=== PATIENT | female | born 1970 | race Caucasian/White ===

== ENCOUNTER 2017-06-27 12:19 | Emergency (ER) | payer OTHER ==
[~2017-06-27] VITALS: Wt 51.7 kg
[~2017-06-27 12:19] MED LIST: ALPR0.254 PO; CYCL-319 PO; DIAZ-90 PO; HYDR-3498 PO
[2017-06-27] MEDS ORDERED: ONDANSETRON 4 MG INJ IV STA (14:10)
[2017-06-27] MEDS ORDERED: SOD CHLORIDE 0.9% 1,000 ML IV STA (14:10)
[2017-06-27] MEDS ORDERED: KETOROLAC 30 MG INJ IV STA (14:20)
--- NOTE | 2017-06-27 14:50 | ERD ---
ER Documentation Chief Complaint Chief Complaint BILAT LOWER EXTREMITIES PAIN, ON AND OFF FOR SEVERAL MONTHS, NO INJURY HPI Patient is a 47-year-old female with past medical history of pancreatitis, UTI, s/p cholecystectomy presents to the ED for concerns of abdominal pain, nausea, vomiting, diarrhea and bilateral leg cramps. Patient states her symptoms have been intermittent for the last 3-4 months. Patient states she recently was admitted to an outside hospital told that she had a UTI which is contributing to her pain. Patient states that her abdominal pain is in her bilateral lower quadrants in her suprapubic region. Patient denies any dysuria, frequency or urgency at this time. Patient states that her urine is dark in color. Patient also reports nausea and vomiting. She states she is taking Zofran for her symptoms. Patient also reports intermittent episodes of bloating and nonbloody diarrhea. Patient says she has had a decreased appetite for last 3 months. Patient reports taking Hickman as well as Benadryl however she states she is unable to sleep. Patient denies any fevers, chills, chest pain, shortness of breath, left upper extremity pain or loss consciousness. Patient also reports bilateral leg cramps. Patient states she was told that this because her potassium was low however she recently was told to stop taking her potassium supplement by her primary care physician. She denies any falls or trauma. Patient denies any colonoscopies in the past. ROS All systems reviewed and are negative except as per history of present illness. Medications Home Meds Active Scripts Ciprofloxacin Hcl* (Ciprofloxacin Hcl*) 500 Mg Tablet, 500 MG PO BID for 7 Days , TAB Prov:YANET MENCHACA PA-C 06/27/17 Phenazopyridine Hcl* (Pyridium*) 100 Mg Tab, 100 MG PO TID Y for URINARY PAIN, # 12 TAB Prov:YANET MENCHACA PA-C 06/27/17 Hydrocodone/Acetaminophen (Hickman 5-325 Tablet) 1 Each Tablet, 1 TAB PO Q6H Y for PAIN, #7 TAB Prov:YANET MENCHACA PA-C 06/27/17 Ibuprofen* (Motrin*) 400 Mg Tab, 400 MG PO Q6, #20 TAB Prov:YANET MENCHACA PA-C 06/27/17 Cyclobenzaprine Hcl* (Cyclobenzaprine Hcl*) 10 Mg Tablet, 10 MG PO TID Y for back pain, #60 TAB 0 Refills Prov:GERDA VALENCIA Y 04/09/14 Reported Medications Diazepam* (Valium*) 5 Mg Tablet, 10 MG PO DAILY, TAB 01/27/14 Alprazolam (Xanax) 0.25 Mg Tab, 0.25 MG PO Q8H Y for ANXIETY, TAB 01/27/14 Hydrocodone Bit-Acetaminophen (Hydrocodone Bit-APAP) 1 Each Tablet, 1 EACH PO Q6 Y for PAIN 01/27/14 Discontinued Scripts Acetaminophen* (Tylophen*) 500 Mg Capsule, 1 CAP PO Q6H Y for PAIN AND OR ELEVATED TEMP, #20 CAP Prov:YANET MENCHACA PA-C 06/27/17 Allergies Allergies: Coded Allergies: No Known Allergy (Unverified , 06/27/17) PMhx/Soc History of Surgery: Yes (, CHOLECYSTECTOMY, back surgery) Anesthesia Reaction: No Hx 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 Disorder: No Hx Respiratory Disorders: No Hx Cardiac Disorders: No Hx Psychiatric Problems: No Hx Miscellaneous Medical Probl: Yes (GISELE YE,) Hx Alcohol Use: Yes (SOCIAL) Hx Substance Use: No Hx Tobacco Use: Yes (10-15 CIGS/DAY) Smoking Status: Current every day smoker FmHx Family History: No diabetes Physical Exam Vitals Vital Signs Date Time Temp Pulse Resp B/P Pulse Ox O2 Delivery O2 Flow Rate FiO2 06/27/17 19:55 97.9 20 137/84 97 Room Air 06/27/17 16:40 98.3 85 20 163/70 98 Room Air 06/27/17 12:24 98.4 66 17 146/107 99 Physical Exam GENERAL: Well-developed, well-nourished female. Appears in no acute distress. Speaking in full sentences. HEAD: Normocephalic, atraumatic. EYES: Pupils are equally reactive bilaterally. EOMs grossly intact. No conjunctival erythema. ENT: Moist mucous membranes. No uvula deviation. No kissing tonsils. NECK: Supple. No meningismus. Normal range of motion of the neck. LUNG: Clear to auscultation bilaterally. No rhonchi, wheezing, rales or coarse breath sounds. HEART: Regular rate and rhythm. No murmurs, rubs or gallops. ABDOMEN: Soft and nondistended. Tender to palpation in bilateral lower quadrants and suprapubic regions. No rebound tenderness, no guarding. (-) McBurney's point tenderness. No CVA tenderness. EXTREMITIES: Equal pulses bilaterally. No peripheral clubbing, cyanosis or edema. No unilateral leg swelling. NEUROLOGIC: Alert and oriented. Moving all four extremities without any difficulty. Normal speech. Steady gait. SKIN: Normal color. Warm and dry. No rashes or lesions. Result Diagram: 06/27/17 1445 06/27/17 1445 Results 24 hrs Laboratory Tests Test 06/27/17 14:45 White Blood Count 8.610^3/ul Red Blood Count 3.9410^6/ul Hemoglobin 13.4g/dl Hematocrit 40.0% Mean Corpuscular Volume 101.5fl Mean Corpuscular Hemoglobin 34.0pg Mean Corpuscular Hemoglobin Concent 33.5g/dl Red Cell Distribution Width 13.6% Platelet Count 07914^3/UL Mean Platelet Volume 11.5fl Neutrophils % 59.9% Lymphocytes % 34.5% Monocytes % 4.7% Eosinophils % 0.3% Basophils % 0.3% Nucleated Red Blood Cells % 0.0/100WBC Neutrophils # 5.210^3/ul Lymphocytes # 3.010^3/ul Monocytes # 0.410^3/ul Eosinophils # 0.010^3/ul Basophils # 0.010^3/ul Nucleated Red Blood Cells # 0.010^3/ul Urine Color CANDIE Urine Clarity SLIGHTLY CLOUDY Urine pH 5.0 Urine Specific [place] 1.024 Urine Ketones 1+mg/dL Urine Nitrite NEGATIVEmg/dL Urine Bilirubin 1+mg/dL Urine Urobilinogen 2+mg/dL Urine Leukocyte Esterase 2+Obdulio/ul Urine Microscopic RBC 14/HPF Urine Microscopic WBC > 182/HPF Urine Squamous Epithelial Cells FEW/HPF Urine Bacteria MODERATE/HPF Urine Hyaline Casts FEW/HPF Urine Mucus MANY/HPF Urine Hemoglobin 1+mg/dL Urine Glucose NEGATIVEmg/dL Urine Total Protein 1+mg/dl Sodium Level 140mmol/L Potassium Level 4.0mmol/L Chloride Level 99mmol/L Carbon Dioxide Level 27mmol/L Anion Gap 18 Blood Urea Nitrogen 7mg/dl Creatinine 0.55mg/dl Glucose Level 78mg/dl Calcium Level 10.1mg/dl Total Bilirubin 1.0mg/dl Direct Bilirubin 0.00mg/dl Indirect Bilirubin 1.0mg/dl Aspartate Amino Transf (AST/SGOT) 61IU/L Alanine Aminotransferase (ALT/SGPT) 41IU/L Alkaline Phosphatase 153IU/L Creatine Kinase 37IU/L Creatine Kinase Index 0.8 Creatinine Kinase MB (Mass) 0.30ng/ml Troponin I < 0.012ng/ml Total Protein 8.4g/dl Albumin 4.2g/dl Globulin 4.20g/dl Albumin/Globulin Ratio 1.00 Lipase 25U/L Current Medications Medications (Trade) Dose Ordered Sig/Dax Route PRN Reason Start Time Stop Time Status Last Admin Dose Admin Sodium Chloride (NS) 1,000 ml @ 1,000 mls/hr Q1H STAT IV 06/27/17 14:10 06/27/17 15:09 DC 06/27/17 14:52 Ondansetron HCl (Zofran Inj) 4 mg ONCE STAT IV 06/27/17 14:10 06/27/17 14:12 DC 06/27/17 14:53 Ketorolac Tromethamine (Toradol) 30 mg ONCE STAT IV 06/27/17 14:20 06/27/17 14:21 DC 06/27/17 14:53 Morphine Sulfate 4 mg 4 mg ONCE STAT IV 06/27/17 16:33 06/27/17 16:34 DC 06/27/17 16:43 Ceftriaxone Sodium (Rocephin) 50 ml @ 100 mls/hr ONCE ONCE IVPB 06/27/17 17:00 06/27/17 17:29 DC 06/27/17 17:13 Procedures/MDM ED COURSE: The patient was stable throughout ED course. I kept the patient and/or family informed of laboratory and diagnostic imaging results throughout the ED course. DIAGNOSTIC IMAGING: Read by radiologist. Patient: OMER CHAVEZ : 1970 Age: 47 Sex: F MR #: [id number] DOS: 06/27/17 1410 Ordering MD: YANET MENCHACA PA-C Location: [facility] Room/Bed: PROCEDURE: CT Abdomen and Pelvis without contrast. CLINICAL INDICATION: Abdominal pain TECHNIQUE: CT scan of the abdomen and pelvis was performed on a multidetector high-resolution CT scanner without intravenous contrast. Coronal and sagittal reformatted images were obtained from the axial source images. Images were reviewed on a high-resolution PACS workstation. The total exam CTDI equals 5mGy and the total exam DLP equals 276mGy-cm. One or more of the following dose reduction techniques were used: Automated exposure control, Adjustment of the mA and/or kV according to patient size, and/or use of iterative reconstruction technique. DICOM images are available. COMPARISON: Abdominal CT 05/04/2015 FINDINGS: Evaluation of the solid organs is limited given the lack of intravenous contrast administration. The lung bases are clear. Hypoattenuation of the liver. Status post cholecystectomy. Calcifications are not seen in the region of the pancreatic head at the location of the prior pancreatic head cystic lesion. Adrenals and spleen are unremarkable. No hydronephrosis. No renal or ureteral stone. No bowel obstruction. Normal-caliber appendix. Colonic diverticulosis. No significant retroperitoneal lymphadenopathy, ascites or evidence of pneumoperitoneum. IMPRESSION: No acute intra-abdominal process identified. No evidence of bowel obstruction or appendicitis. Colonic diverticulosis without evidence of acute diverticulitis. Hepatic steatosis. Status post cholecystectomy. Calcifications are now seen in the region of the pancreatic head at the location of the prior pancreatic head cystic lesion. Recommend correlation with prior surgical/procedural history. RPTAT: AA .Simeon Roas MD, MD Date Time Electronically viewed and signed by .Simeon Rosa MD, on 06/27/2017 16:32 .T/ CC: YANET MENCHACA PA-C PROCEDURES: None. MEDICATIONS GIVEN: IV fluids, Zofran, Toradol, Morphine Patient tolerated medication well with no adverse reactions. Patient reported improvement in pain. MEDICAL DECISION MAKING: This is a 47-year-old female with a history of a cholecystectomy, pancreatitis, UTI who presents to the ED for multiple concerns including lower abdominal pain , nausea, vomiting, diarrhea, leg cramps. Patient states her symptoms have been intermittent for the last 3 months. Patient was recently admitted for similar symptoms at [facility]. Patient states she was told that she had a UTI and was discharged after numerous studies were done.. Vital signs were reviewed. Patient is afebrile. CBC showed no evidence of systemic infection or severe anemia. CMP showed no evidence of electrolyte abnormalities , severe acidosis, alkalosis, renal failure. States he was noted to be 59, alk phos of 153, anion gap of 18. CK was negative. Troponin was negative. Lipase showed no evidence of acute pancreatitis. test was negative. UA showed 2+ leukocyte esterase, greater than 182 WBCs. Patient was given Rocephin 1 g here in the ED. Urine was sent for culture given hx of recurrent UTIs. CT abdomen and pelvis showed No acute intra-abdominal process identified. No evidence of bowel obstruction or appendicitis. Colonic diverticulosis without evidence of acute diverticulitis. Hepatic steatosis. Status post cholecystectomy. Calcifications are now seen in the region of the pancreatic head at the location of the prior pancreatic head cystic lesion. Recommend correlation with prior surgical/procedural history. Prior to discharge, I discussed the patient's blood work and CT imaging studies with her. Patient then mentioned that her doctor, Dr. Mcdonald wished for her to be admitted. Discussed the case with my supervising physician Dr. Valdivia, who paged Dr. Mcdonald twice to discuss whether or not patient required admission. While awaiting Dr. Mcdonald calls back, patient stated that she wished to home. Patient requested not be given Keflex for UTI. I explained to the patient that I would give her Ciprofloxacin at this time, however if urine culture showed resistance, patient would be contacted. Patient understood and agreed with this plan. At this time, patient's presentation is most consistent with diverticulosis, UTI and hepatic steatosis. Low suspicion for ACS, mesenteric ischemia, DKA, bowel obstruction, bowel perforation, pancreatitis, splenic rupture, diverticulitis, pyelonephritis, nephrolithiasis, appendicitis, . PRESCRIPTIONS: Ciprofloxacin, Ibuprofen, Hickman DISCHARGE: At this time, patient is stable for discharge and outpatient management.Patient was given a copy of all blood work and imaging studies obtained today. Patient encouraged to follow up with GI specialist for colonoscopy. I have instructed the patient to follow-up with his/her primary care physician in 1-2 days. I have instructed the patient to promptly return to the ER at any time for any new or worsening symptoms including increased pain, nausea, vomiting, diarrhea, fever, weakness or LOC. The patient and/or family expressed understanding of and agreement with this plan. All questions were answered. Home care instructions were provided. Patients blood pressure was elevated (>120/80) but appears stable without evidence of hypertensive emergency, hypertensive urgency or end-organ failure. I had discussion with the patient about the risks of hypertension. I have advised the patient to follow up with his/her primary care physician for outpatient monitoring and treatment for hypertension in 2-3 days. I have instructed the patient to return to the ER for any new or worsening symptoms including chest pain, shortness of breath, headache, blurred vision, confusion, nausea, vomiting or LOC. Disclaimer: Inadvertent spelling and grammatical errors are likely due to EHR/ dictation software use and do not reflect on the overall quality of patient care. Also, please note that the electronic time recorded on this note does not necessarily reflect the actual time of the patient encounter. Departure Diagnosis: Primary Impression: Diverticulosis Diverticulosis site: unspecified location Diverticulosis bleeding: diverticulosis without bleeding Qualified Code: K57.90 - Diverticulosis of intestine without bleeding, unspecified intestinal tract location Additional Impressions: UTI (urinary tract infection) Urinary tract infection type: site unspecified Hematuria presence: with hematuria Qualified Code: N39.0 - Urinary tract infection with hematuria, site unspecified Hepatic steatosis Condition: Stable Referrals: [facility] YOU HAVE RECEIVED A MEDICAL SCREENING EXAM AND THE RESULTS INDICATE THAT YOU DO NOT HAVE A CONDITION THAT REQUIRES URGENT TREATMENT IN THE EMERGENCY DEPARTMENT. FURTHER EVALUATION AND TREATMENT OF YOUR CONDITION CAN WAIT UNTIL YOU ARE SEEN IN YOUR DOCTORS OFFICE WITHIN THE NEXT 1-2 DAYS. IT IS YOUR RESPONSIBILITY TO MAKE AN APPOINTMENT FOR FOLOW-UP CARE. IF YOU HAVE A PRIMARY DOCTOR --you should call your primary doctor and schedule an appointment IF YOU DO NOT HAVE A PRIMARY DOCTOR YOU CAN CALL OUR PHYSICIAN REFERRAL HOTLINE AT IF YOU CAN NOT AFFORD TO SEE A PHYSICIAN YOU CAN CHOSE FROM THE FOLLOWING [facility] [id number] [facility] [address] [facility] [address] [facility] [address] [facility] [address] [facility]. [facility] [address] [facility]. [facility] YOU HAVE RECEIVED A MEDICAL SCREENING EXAM AND THE RESULTS INDICATE THAT YOU DO NOT HAVE A CONDITION THAT REQUIRES URGENT TREATMENT IN THE EMERGENCY DEPARTMENT. FURTHER EVALUATION AND TREATMENT OF YOUR CONDITION CAN WAIT UNTIL YOU ARE SEEN IN YOUR DOCTORS OFFICE WITHIN THE NEXT 1-2 DAYS. IT IS YOUR RESPONSIBILITY TO MAKE AN APPOINTMENT FOR FOLOW-UP CARE. IF YOU HAVE A PRIMARY DOCTOR --you should call your primary doctor and schedule and appointment IF YOU DO NOT HAVE A PRIMARY DOCTOR YOU CAN CALL OUR PHYSICIAN REFERRAL HOTLINE AT . IF YOU CAN NOT AFFORD TO SEE A PHYSICIAN YOU CAN CHOSE FROM THE FOLLOWING [facility] INSTITUTIONS: [facility] [address] [place] [address] [facility] [address] [place] [address] [facility] [address] [place] [address] YANET MENCHACA PA-C Jun 27, 2017 14:50
[2017-06-27 15:16] LABS: BASOPHILS % 0.3 % (0.0-2.0); EOSINOPHILS % 0.3 % (0.0-7.0); HEMOGLOBIN 13.4 g/dl (12.0-16.0); LYMPHOCYTES % 34.5 % (15.0-51.0); MEAN CORPUSCULAR HGB CONC 33.5 g/dl (32.0-37.0); MEAN CORPUSCULAR VOLUME 101.5 fl (82.0-101.0); MEAN PLATELET VOLUME 11.5 fl (7.4-10.4); MONOCYTE # 0.4 10^3/ul (0.3-0.9); MONOCYTES % 4.7 % (0.0-11.0); NEUTROPHIL # 5.2 10^3/ul (1.6-7.5); NEUTROPHILS % 59.9 % (39.0-77.0); PLATELET COUNT 237 10^3/UL (140-415); RED BLOOD COUNT 3.94 10^6/ul (4.20-5.40); RED CELL DISTRIBUTION WIDTH 13.6 % (11.5-14.5); WHITE BLOOD COUNT 8.6 10^3/ul (4.8-10.8)
[2017-06-27 15:30] LABS: ADD UMIC YES; UR ASCORBIC ACID NEGATIVE (NEGATIVE); UR BACTERIA MODERATE /HPF (NONE SEEN); UR BILIRUBIN (Dip) 1+ mg/dL (NEGATIVE); UR BLOOD (Dip) 1+ mg/dL (NEGATIVE); UR CLARITY SLIGHTLY CLOUDY (CLEAR); UR COLOR AMBER (YELLOW); UR GLUCOSE (Dip) NEGATIVE (NEGATIVE); UR KETONES (Dip) 1+ mg/dL (NEGATIVE); UR LEUKOCYTE ESTERASE (Dip) 2+ Leu/ul (NEGATIVE); UR MUCUS MANY /HPF (NONE SEEN); UR NITRITE (Dip) NEGATIVE (NEGATIVE); UR RBC 14 /HPF (0-5); UR SPECIFIC GRAVITY (Dip) 1.024 (1.003-1.030); UR SQUAMOUS EPITHELIAL CELL FEW /HPF (FEW); UR TOTAL PROTEIN (Dip) 1+ mg/dl (NEGATIVE); UR UROBILINOGEN (Dip) 2+ mg/dL (NEGATIVE)
[2017-06-27] MEDS ORDERED: morphine 4 MG/ML VIAL IV STA (16:33)
--- NOTE | 2017-06-27 16:33 | RADRPT ---
PROCEDURE: CT Abdomen and Pelvis without contrast. CLINICAL INDICATION: Abdominal pain TECHNIQUE: CT scan of the abdomen and pelvis was performed on a multidetector high-resolution CT s canner without intravenous contrast. Coronal and sagittal reformatted images were obtained from the axial source images. Images were reviewed on a high-resolution PACS workstation. The total exam CTD I equals 5mGy and the total exam DLP equals 276mGy-cm. One or more of the following dose reduction t echniques were used: Automated exposure control, Adjustment of the mA and/or kV according to patient size, and/or use of iterative reconstruction technique. DICOM images are available. COMPARISON: Abdominal CT 05/04/2015 FINDINGS: Evaluation of the solid organs is limited given the lack of intravenous contrast administration. The lung bases are clear. Hypoattenuation of the liver. Status post cholecystectomy. Calcifications are not seen in the region of the pancreatic head at the location of the prior pancreatic head cystic lesion. Adrenals and spl een are unremarkable. No hydronephrosis. No renal or ureteral stone. No bowel obstruction. Normal-caliber appendix. Colonic diverticulosis. No significant retroperitoneal lymphadenopathy, ascites or evidence of pneumoperitoneum. IMPRESSION: No acute intra-abdominal process identified. No evidence of bowel obstruction or appendicitis. Colonic diverticulosis without evidence of acute diverticulitis. Hepatic steatosis. Status post cholecystectomy. Calcifications are now seen in the region of the pancreatic head at the location of the prior pancre atic head cystic lesion. Recommend correlation with prior surgical/procedural history. RPTAT: AA .Onel Rosa MD, MD Date Time Electronically viewed and signed by .Onel Rosa MD, MD on 06/27/2017 16:32 .T/
[2017-06-27 16:40] VITALS: PULSE 85
[2017-06-27 16:49] LABS: ALBUMIN 4.2 g/dl (3.3-4.9); CALCIUM 10.1 mg/dl (8.4-10.2); CREATININE 0.55 mg/dl (0.44-1.00); TOTAL PROTEIN 8.4 g/dl (6.1-8.1)
[2017-06-27] MEDS ORDERED: CEFTRIAXONE 1 GM/50 ML (PMX) 50 ML IVPB ONE (17:00)
[2017-06-27 18:34] LABS: CREATINE KINASE 37 IU/L (23-200)
[2017-06-27 18:50] LABS: TROPONIN-I < 0.012 ng/ml (0.00-0.12)
[2017-06-27] MEDS ORDERED: IBUP400T22 PO (19:40)
[2017-06-27] MEDS ORDERED: ACET500C5 PO (19:40)
[2017-06-27] MEDS ORDERED: HYDR-906 PO (19:41)
[2017-06-27] MEDS ORDERED: CIPR500T4 PO (19:41)
[2017-06-27] MEDS ORDERED: PHEN-537 PO (19:41)
[2017-06-27 19:55] VITALS: BP 137/84; RESP 20; TEMP 97.9
== END 2017-06-27 19:56 | disposition home or self-care (01) ==
LOC: FTE 12:19
DX: K57.90 Diverticulosis of intestine, part unspecified, without perforation or abscess without bleeding (principal); N39.0 Urinary tract infection, site not specified; K76.0 Fatty (change of) liver, not elsewhere classified; F17.210 Nicotine dependence, cigarettes, uncomplicated; R40.2252 Coma scale, best verbal response, oriented, at arrival to emergency department; R40.2142 Coma scale, eyes open, spontaneous, at arrival to emergency department; R40.2362 Coma scale, best motor response, obeys commands, at arrival to emergency department
CPT/HCPCS: 36415; 74176; 80053; 81001; 82550; 82553; 83690; 84484; 85025; 87086; 96374; 96375; J0696; J1885; J2270; J2405; J7030; Z7502

== ENCOUNTER 2017-08-12 18:57 | Inpatient (IN) | END 2017-08-17 16:48 | disposition home or self-care (01) | DRG 383 ==

== ENCOUNTER 2018-04-01 16:39 | Inpatient (IN) | END 2018-04-08 18:26 | disposition home or self-care (01) | DRG 438 ==

== ENCOUNTER 2018-04-24 08:57 | Day surgery (SDC) | END 2018-04-24 15:44 | disposition home or self-care (01) ==

== ENCOUNTER 2018-06-18 02:23 | Inpatient (IN) | END 2018-06-23 14:50 | disposition home or self-care (01) | DRG 440 ==

== ENCOUNTER 2018-06-24 21:10 | Emergency (ER) | END 2018-06-25 00:38 | disposition home or self-care (01) ==

== ENCOUNTER 2018-09-01 11:21 | Emergency (ER) | payer OTHER ==
[~2018-09-01] VITALS: Ht 170.2 cm; Wt 54.8 kg
[~2018-09-01 11:21] MED LIST changes: -ALPR0.254 PO; -CYCL-319 PO; -DIAZ-90 PO; +DIAZ10TA4 PO; -HYDR-3498 PO; +HYDR-4011 PO; +LIPA1CAP4 PO; +LIPA1CAP6 PO; +LOPE-123 PO; +LORA-441 PO; +NICO-546 TD; +ONDA4TAB13 PO; +PANT40TA3 PO
[2018-09-01 11:23] VITALS: Ht 170.2 cm; Wt 54.8 kg
[2018-09-01] MEDS ORDERED: ONDANSETRON 4 MG INJ IV STA ×2 (12:21→14:17)
[2018-09-01] MEDS ORDERED: SOD CHLORIDE 0.9% 1,000 ML IV STA ×2 (12:21→13:44)
[2018-09-01] MEDS ORDERED: HYDROmorphONE 1 MG/ML SYG IV STA ×2 (12:21→14:17)
--- NOTE | 2018-09-01 12:40 | ERD ---
ER Documentation Chief Complaint Chief Complaint c/o abdominal pain with N/V. hx: Pancreatitis HPI This a 48-year-old female who is here for pancreatitis exacerbation. The patient has had chronic pancreatitis for years she states and has had her gallbladder removed. Denies any alcohol abuse. Complains of day 2 of mid abdominal pain radiating to the back typical for her pancreas exacerbations. No fever pain is moderate. No diarrhea but has had 3 episodes of nausea and vomiting has been nonbloody. ROS All systems reviewed and are negative except as per history of present illness. Medications Home Meds Active Scripts Pantoprazole* (Protonix*) 40 Mg Tablet.dr, 40 MG PO AC BREAKFAST for 30 Days, TAB Prov:BRADLEY STROUD 06/23/18 Hydrocodone/Acetaminophen ([place] 5-325 Tablet) 1 Each Tablet, 1 EACH PO Q4 PRN for PAIN, #30 TAB Prov:BRADLEY STROUD 06/23/18 Reported Medications Chlordiazepoxide/Clidinium Br (Chlordiazepoxide-Clidinium Cap) 1 Each Capsule, 1 TAB PO DAILY PRN for DIARRHEA 09/01/18 Temazepam* (Temazepam*) 15 Mg Capsule, 15 MG PO HS MAY REPEAT X 1 PRN for INSOMNIA, CAP 09/01/18 Loperamide Hcl* (Loperamide Hcl*) 2 Mg Cap, 2 MG PO DAILY PRN for DIARRHEA, CAP 09/01/18 Xdoadu-Syqglzbd-Ygvatkl* (Agustín HENRY* 24,000) 24,000 L-76,000-120,000 Unit Capsule., 1 CAP PO WITH MEALS, CAP 09/01/18 Nicotine* (Nicotine* Patch) 21 mg/day Patch, 1 EACH TD DAILY, PATCH 06/18/18 Discontinued Reported Medications Loperamide Hcl* (Loperamide Hcl*) 2 Mg Cap, 2 MG PO, CAP 06/18/18 Diazepam* (Diazepam*) 10 Mg Tablet, 10 MG PO Q6, TAB 06/18/18 Iuqdhr-Fhoyqzka-Pegjxeq* (Agustín HENRY* 12,000) 12,000 L-38,000-60,000 Unit Capsule., 1 CAP PO WITH MEALS, CAP 04/24/18 Discontinued Scripts Lorazepam* (Ativan*) 0.5 Mg Tablet, 0.5 MG PO Q8 PRN for ANXIETY, #30 TAB Prov:BRADLEY STROUD 06/23/18 Wazsrw-Gxpspeyc-Gdgueqt* (Creyessenia HENRY* 24,000) 24,000 L-76,000-120,000 Unit Capsule.dr, 1 CAP PO WITH MEALS for 30 Days Prov:BRADLEY STROUD 06/23/18 Ondansetron Hcl* (Zofran*) 4 Mg Tab, 4 MG PO Q6H PRN for NAUSEA AND OR VOMITING, #30 TAB Prov:BRADLEY STROUD 06/23/18 Allergies Allergies: Coded Allergies: No Known Allergies (Unverified Allergy, Unknown, 09/01/18) sulfamethoxazole (Unverified Adverse Reaction, Unknown, 09/01/18) PMhx/Soc History of Surgery: Yes (; Lap-mike , pancreatic stent and removal) Anesthesia Reaction: No Hx 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 Disorder: No Hx Respiratory Disorders: No Hx Cardiac Disorders: No Hx Psychiatric Problems: Yes (Anxiety; claustrophobic) Hx Miscellaneous Medical Probl: Yes (Acute pancreatitis) Hx Alcohol Use: Yes (1 glass, white wine, 06/17/18) Hx Substance Use: Yes (elixir (THC), 1, 06/16/18) Hx Tobacco Use: Yes (currently on patch and 2 a day) Smoking Status: Current some day smoker FmHx Family History: No coronary disease Physical Exam Vitals Vital Signs Date Temp Pulse Resp B/P (MAP) Pulse Ox O2 O2 Flow FiO2 Time Delivery Rate 09/01/18 110 17 126/88 100 Room Air 13:09 (101) 09/01/18 98.3 120 20 164/69 100 11:23 (100) Physical Exam Const: Well-developed, well-nourished Head: Atraumatic, normocephalic Eyes: Normal Conjunctiva, PERRLA, EOMI, normal sclera, no nystagmus ENT: Normal External Ears, Nose and Mouth, moist mucus membranes. Neck: Full range of motion. No meningismus, no lymphadenopathy. Resp: Clear to auscultation bilaterally, no wheezing, rhonchi, rales Cardio: Regular rate and rhythm, no murmurs, S1 S2 present Abd: Soft, moderate mid abdominal tenderness, non distended. Normal bowel sounds, no guarding or rebound, no pulsitile abdominal masses or bruits Skin: No petechiae or rashes, no ecchymosis , no maculopapular rash Back: No midline or flank tenderness Ext: No cyanosis, or edema, FROM x 4, normal inspection, neurovascularly intact x 4 Neur: Awake and alert, STR 5/5 x 4, sensation intact x 4, no focal findings, cerebellum intact Psych: Normal Mood and Affect Result Diagram: 09/01/18 1300 09/01/18 1300 Results 24 hrs Laboratory Tests Test 09/01/18 13:00 White Blood Count 10.6 10^3/ul Red Blood Count 4.12 10^6/ul Hemoglobin 13.3 g/dl Hematocrit 40.4 % Mean Corpuscular Volume 98.1 fl Mean Corpuscular Hemoglobin 32.3 pg Mean Corpuscular Hemoglobin Concent 32.9 g/dl Red Cell Distribution Width 14.7 % Platelet Count 285 10^3/UL Mean Platelet Volume 11.0 fl Immature Granulocytes % 0.500 % Neutrophils % 73.1 % Lymphocytes % 19.5 % Monocytes % 6.4 % Eosinophils % 0.1 % Basophils % 0.4 % Nucleated Red Blood Cells % 0.0 /100WBC Immature Granulocytes # 0.050 10^3/ul Neutrophils # 7.8 10^3/ul Lymphocytes # 2.1 10^3/ul Monocytes # 0.7 10^3/ul Eosinophils # 0.0 10^3/ul Basophils # 0.0 10^3/ul Nucleated Red Blood Cells # 0.0 10^3/ul Sodium Level 139 mmol/L Potassium Level 3.9 mmol/L Chloride Level 103 mmol/L Carbon Dioxide Level 18 mmol/L Anion Gap 18 Blood Urea Nitrogen 7 mg/dl Creatinine 0.49 mg/dl Est Glomerular Filtrat Rate mL/min > 60 mL/min Glucose Level 89 mg/dl Calcium Level 9.2 mg/dl Total Bilirubin 0.9 mg/dl Direct Bilirubin 0.00 mg/dl Indirect Bilirubin 0.9 mg/dl Aspartate Amino Transf (AST/SGOT) 175 IU/L Alanine Aminotransferase (ALT/SGPT) 150 IU/L Alkaline Phosphatase 166 IU/L Total Protein 7.9 g/dl Albumin 4.3 g/dl Globulin 3.60 g/dl Albumin/Globulin Ratio 1.19 Lipase 238 U/L Current Medications Medications Dose Sig/Dax Start Time Status Last (Trade) Ordered Route PRN Stop Time Admin Dose Reason Admin Sodium 1,000 ml @ Q1H STAT 09/01/18 DC 09/01/18 Chloride 1,000 mls/hr IV 12:21 12:26 09/01/18 13:20 1 mg ONCE STAT 09/01/18 DC 09/01/18 Hydromorphone IV 12:21 12:27 HCl 09/01/18 12:22 (Dilaudid) Ondansetron 4 mg ONCE STAT 09/01/18 DC 09/01/18 HCl (Zofran IV 12:21 12:26 Inj) 09/01/18 12:22 Sodium 1,000 ml @ Q1H STAT 09/01/18 09/01/18 Chloride 1,000 mls/hr IV 13:44 14:07 09/01/18 14:43 1 mg ONCE STAT 09/01/18 DC Hydromorphone IV 14:17 HCl 09/01/18 14:18 (Dilaudid) Ondansetron 4 mg ONCE STAT 09/01/18 DC HCl (Zofran IV 14:17 Inj) 09/01/18 14:18 Procedures/MDM Patient is feeling better. Her labs are unremarkable she has a normal lipase does have elevated liver function tests which are likely chronic. She has no gallbladder. She had 2 L of fluid and will have 2 rounds of Dilaudid and go home. She says she is out of pain meds and will prescribe her some Dupuyer Patient feels much better at this time, and vital signs are normal, symptoms have improved. I did give strict instructions to return to the ED if symptoms continue or worsen, patient will otherwise follow-up with primary care physician. Patient understood instructions and agreed to plan. Disclaimer: Inadvertent spelling and grammatical errors are likely due to EHR/dictation software use and do not reflect on the overall quality of patient care. Also, please note that the electronic time recorded on this note does not necessarily reflect the actual time of the patient encounter. Departure Diagnosis: Primary Impression: Pancreatitis Chronicity: chronic Pancreatitis type: unspecified pancreatitis type Qualified Codes: K86.1 - Other chronic pancreatitis Condition: MARION Patricia DO Sep 01, 2018 12:40
[2018-09-01] MEDS ORDERED: LOPE-123 PO (13:12)
[2018-09-01] MEDS ORDERED: LIPA1CAP6 PO (13:12)
[2018-09-01] MEDS ORDERED: CHLO1CAP57 PO (13:14)
[2018-09-01] MEDS ORDERED: TEMA15CA PO (13:14)
[2018-09-01] MEDS ORDERED: ONDA4TAB14 PO (14:22)
[2018-09-01] MEDS ORDERED: HYDR-3980 PO (14:22)
[2018-09-01 15:19] VITALS: BP 160/90; PULSE 90; RESP 17
== END 2018-09-01 18:03 | disposition home or self-care (01) ==
LOC: E/R 11:21
DX: K86.1 Other chronic pancreatitis (principal); F17.210 Nicotine dependence, cigarettes, uncomplicated
CPT/HCPCS: 36415; 80053; 83690; 85025; 96361; 96374; 96375; 96376; J1170; J2405; J7030; Z7502; Z7610

== ENCOUNTER 2018-11-16 18:21 | Inpatient (IN) | payer OTHER ==
[~2018-11-16] VITALS: Ht 180.3 cm; Wt 61.1 kg
[~2018-11-16 18:21] MED LIST changes: +CHLO1CAP57 PO; -DIAZ10TA4 PO; +HYDR-3980 PO; -LIPA1CAP4 PO; -LORA-441 PO; -ONDA4TAB13 PO; +ONDA4TAB14 PO; +TEMA15CA PO
[2018-11-16] MEDS ORDERED: morphine 4 MG/ML VIAL IV STA (20:48)
[2018-11-16] MEDS ORDERED: SOD CHLORIDE 0.9% 1,000 ML IV STA (20:48)
[2018-11-16] MEDS ORDERED: ONDANSETRON 4 MG INJ IV STA (20:48)
[2018-11-16] MEDS ORDERED: HYDR-843 PO (22:09)
[2018-11-16] MEDS ORDERED: BEN25 PO (22:11)
[2018-11-16] MEDS ORDERED: MULTI PO (22:11)
[2018-11-16] MEDS ORDERED: ASCO500C7 PO (22:11)
--- NOTE | 2018-11-16 22:29 | ERD ---
ER Documentation Chief Complaint Chief Complaint abdominal pain with N/V x 1 week hx of Pancreatitis HPI Patient is a 48-year-old female with a history of pancreatitis who presents with abdominal pain. She has upper abdominal pain and says that it feels like previous pancreatitis. She had vomiting as well. It started 1 week ago. He has gotten worse and is sharp in nature. The patient has no fevers. The patient tried Tylenol and Zofran. The patient called Dr. Samuels who told her to go to the emergency department. Upon review of old medical records the patient has multiple visits with admissions. Review of the emergency department information exchange system shows visits to 2 separate emergency departments. ROS All systems reviewed and are negative except as per history of present illness. Medications Home Meds Active Scripts Hydrocodone/Acetaminophen ([place] 10-325 Tablet) 1 Each Tablet, 1 TAB PO Q6H PRN for PAIN, #9 TAB Prov:MARION RAWLS A. DO 09/01/18 Ondansetron (Ondansetron Odt) 4 Mg Tab.rapdis, 4 MG PO Q6H PRN for NAUSEA AND/OR VOMITING, #10 TAB Prov:ROSELIA RAWLSSTJT A. DO 09/01/18 Pantoprazole* (Protonix*) 40 Mg Tablet.dr, 40 MG PO AC BREAKFAST for 30 Days, TAB Prov:BRADLEY STROUD 06/23/18 Hydrocodone/Acetaminophen ([place] 5-325 Tablet) 1 Each Tablet, 1 EACH PO Q4 PRN for PAIN, #30 TAB Prov:BRADLEY STROUD 06/23/18 Reported Medications Diphenhydramine Hcl* (Benadryl*) 25 Mg Cap, 25 MG PO Q6H PRN for ITCHING, CAP 11/16/18 Multivitamins* (Theragran*) 1 Tab Tab, 1 TAB PO DAILY, TAB 11/16/18 Ascorbic Acid* (Vitamin C*) 500 Mg Capsule.sa, 500 MG PO DAILY, CAP 11/16/18 Hydroxyzine Hcl* (Hydroxyzine Hcl*) 25 Mg Tablet, 25 MG PO Q8H 11/16/18 Chlordiazepoxide/Clidinium Br (Chlordiazepoxide-Clidinium Cap) 1 Each Capsule, 1 TAB PO DAILY PRN for DIARRHEA 09/01/18 Temazepam* (Temazepam*) 15 Mg Capsule, 15 MG PO HS MAY REPEAT X 1 PRN for INSOMNIA, CAP 09/01/18 Loperamide Hcl* (Loperamide Hcl*) 2 Mg Cap, 2 MG PO DAILY PRN for DIARRHEA, CAP 09/01/18 Mcrdub-Tmkkyyfd-Yxsokaw* (Agustín HENRY* 24,000) 24,000 L-76,000-120,000 Unit Capsule.dr, 1 CAP PO WITH MEALS, CAP 09/01/18 Nicotine* (Nicotine* Patch) 21 mg/day Patch, 1 EACH TD DAILY, PATCH 06/18/18 Allergies Allergies: Coded Allergies: No Known Allergies (Unverified Allergy, Unknown, 09/01/18) sulfamethoxazole (Unverified Adverse Reaction, Unknown, 09/01/18) PMhx/Soc History of Surgery: Yes (; Lap-mike , pancreatic stent and removal) Anesthesia Reaction: No Hx 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 Disorder: No Hx Respiratory Disorders: No Hx Cardiac Disorders: No Hx Psychiatric Problems: Yes (Anxiety; claustrophobic) Hx Miscellaneous Medical Probl: Yes (Acute pancreatitis) Hx Alcohol Use: Yes (1 glass, white wine, 06/17/18) Hx Substance Use: Yes (elixir (THC), 1, 06/16/18) Hx Tobacco Use: Yes (currently on patch and 2 a day) Smoking Status: Former smoker FmHx Family History: No diabetes Physical Exam Vitals Vital Signs Date Temp Pulse Resp B/P (MAP) Pulse Ox O2 O2 Flow FiO2 Time Delivery Rate 11/16/18 98.1 78 18 139/100 100 Room Air 21:47 (113) 11/16/18 98.1 96 18 139/100 100 18:51 (113) Physical Exam Const: Moderate distress Head: Atraumatic Eyes: Normal Conjunctiva ENT: Normal External Ears, Nose and Mouth. Neck: Full range of motion. No meningismus. Resp: Clear to auscultation bilaterally Cardio: Regular rate and rhythm, no murmurs Abd: Soft, epigastric tenderness to palpation without rebound or guarding Skin: No petechiae or rashes Back: No midline or flank tenderness Ext: No cyanosis, or edema Neur: Awake and alert Psych: Normal Mood and Affect Result Diagram: 11/16/18211511/16/182115 Results 24 hrs Laboratory Tests Test 11/16/18 21:16 11/16/18 22:10 White Blood Count 10.1 10^3/ul Red Blood Count 4.73 10^6/ul Hemoglobin 14.6 g/dl Hematocrit 43.3 % Mean Corpuscular Volume 91.5 fl Mean Corpuscular Hemoglobin 30.9 pg Mean Corpuscular Hemoglobin Concent 33.7 g/dl Red Cell Distribution Width 13.2 % Platelet Count 383 10^3/UL Mean Platelet Volume 10.3 fl Immature Granulocytes % 0.300 % Neutrophils % % Lymphocytes % % Monocytes % % Eosinophils % % Basophils % % Nucleated Red Blood Cells % 0.0 /100WBC Immature Granulocytes # 0.030 10^3/ul Neutrophils # 10^3/ul Lymphocytes # 10^3/ul Monocytes # 10^3/ul Eosinophils # 10^3/ul Basophils # 10^3/ul Nucleated Red Blood Cells # 10^3/ul Sodium Level 141 mmol/L Potassium Level 3.8 mmol/L Chloride Level 98 mmol/L Carbon Dioxide Level 27 mmol/L Anion Gap 16 Blood Urea Nitrogen 13 mg/dl Creatinine 0.81 mg/dl Est Glomerular Filtrat Rate mL/min > 60 mL/min Glucose Level 91 mg/dl Calcium Level 11.6 mg/dl Total Bilirubin 0.6 mg/dl Direct Bilirubin 0.00 mg/dl Indirect Bilirubin 0.6 mg/dl Aspartate Amino Transf (AST/SGOT) 1422 IU/L Alanine Aminotransferase (ALT/SGPT) 691 IU/L Alkaline Phosphatase 350 IU/L Total Protein 9.6 g/dl Albumin 5.3 g/dl Globulin 4.30 g/dl Albumin/Globulin Ratio 1.23 Lipase 54 U/L POC Beta HCG, Qualitative NEGATIVE Current Medications Medications Dose Sig/Dax Start Time Status Last (Trade) Ordered Route PRN Stop Time Admin Dose Reason Admin Sodium 1,000 ml @ Q1H STAT 11/16/18 DC 11/16/18 Chloride 1,000 mls/hr IV 20:48 21:15 11/16/18 21:47 Morphine 4 mg ONCE STAT 11/16/18 DC 11/16/18 Sulfate IV 20:48 21:15 (morphine) 11/16/18 20:49 Ondansetron 4 mg ONCE STAT 11/16/18 DC 11/16/18 HCl (Zofran IV 20:48 21:15 Inj) 11/16/18 20:49 Procedures/MDM CT abdomen pelvis is pending at this time. Patient is a 48-year-old female presents with abdominal pain. Lipase was normal but the patient's AST and ALT were significantly elevated concerning for liver inflammation. The patient said that she has already had her gallbladder removed. The patient has [facility] insurance and was previously admitted to Dr. Small and so will be readmitted to Dr. Small. The patient will be admitted to a medical surgical bed. Departure Diagnosis: Primary Impression: Elevated LFTs Additional Impression: Abdominal pain Abdominal location: epigastric Qualified Codes: R10.13 - Epigastric pain Condition: CHRIS Mcdaniel MD Nov 16, 2018 22:29
[2018-11-16] MEDS ORDERED: ONDANSETRON 4 MG INJ IV PRN ×2 (22:30→23:00)
[2018-11-16] MEDS ORDERED: ACETAMINOPHEN 325 MG TAB PO PRN ×2 (22:30→23:00)
[2018-11-16] MEDS ORDERED: morphine 2 MG INJ IV PRN (23:00)
[2018-11-16] MEDS ORDERED: NACL 0.9% 3 ML SYG IV SCH (23:00)
[2018-11-17 01:30] VITALS: BP 129/84; PULSE 89; RESP 18
[2018-11-17] MEDS: SOD CHLORIDE 0.9% 1,000 ML IV SCH ×3 (01:52→14:51)
[2018-11-17 02:13] VITALS: Ht 180.3 cm; Wt 61.1 kg
[2018-11-17] MEDS: HYDROmorphONE 1 MG/ML SYG IV PRN ×5 (02:59→20:54)
[2018-11-17] MEDS: ONDANSETRON 4 MG INJ IV PRN ×2 (06:45→15:34)
[2018-11-17 08:00] VITALS: BP 145/83; PULSE 87; RESP 20
[2018-11-17] MEDS ORDERED: FAMOTIDINE 20 MG INJ IV SCH ×2 (09:00→21:00)
[2018-11-17] MEDS: ENOXAPARIN 30 MG/0.3 ML SYG SC SCH (10:02)
--- NOTE | 2018-11-17 10:37 | HP ---
Date/Time of Note Date/Time of Note DATE: 11/17/18 TIME: 10:30 Assessment/Plan VTE Prophylaxis Pharmacological prophylaxis: LMWH Lines/Catheters IV Catheter Type (from Nrsg): Saline Lock Assessment/Plan Assessment/Plan -Abdominal pain, nausea and vomiting. Keep patient n.p.o. Dilaudid as needed for pain and Zofran as needed for nausea. Dr. Samuels is asked to see patient in gastroenterology consultation. -Transaminitis -Status post ERCP, sphincterotomy and stent placement. Status post ERCP, removal of the biliary stent, removal of this large by Dr. Samuels on 06/18/2018. -History of GERD, continue Protonix. -Anxiety, continue Ativan as needed -Tobacco dependence, cessation is strongly advised, continue nicotine patch. -History of chronic pancreatitis Further recommendations based on clinical course. Plan of care discussed with Dr. Small. Result Diagram: 11/17/18 0433 11/17/18 0433 Results 24hrs Laboratory Tests Test 11/16/18 21:16 11/16/18 22:00 11/16/18 22:10 11/17/18 04:33 White Blood Count 10.1 7.7 # Red Blood Count 4.73 4.19 L Hemoglobin 14.6 13.3 Hematocrit 43.3 39.2 Mean Corpuscular 91.5 93.6 Volume Mean Corpuscular 30.9 31.7 Hemoglobin Mean Corpuscular 33.7 33.9 Hemoglobin Concen t Red Cell 13.2 13.1 Distribution Width Platelet Count 383 # 326 Mean Platelet 10.3 10.5 H Volume Immature 0.300 0.300 Granulocytes % Neutrophils % 56.5 Segmented 46 Neutrophils % (Manual) Lymphocytes % 34.0 Lymphocytes % 46 (Manual) Monocytes % 8.2 Monocytes % 7 (Manual) Eosinophils % 0.4 Eosinophils % 1 (Manual) Basophils % 0.6 Nucleated Red 0.0 0.0 Blood Cells % Immature 0.030 0.020 Granulocytes # Neutrophils # 4.4 Lymphocytes 4.6 H (Manual) Lymphocytes # 2.6 Monocytes # 0.6 Monocytes # 0.7 (Manual) Eosinophils # 0.0 Basophils # 0.1 Nucleated Red 0.0 Blood Cells # Platelet Estimate NORMAL Polychromasia 3+ Sodium Level 141 142 Potassium Level 3.8 3.3 L Chloride Level 98 101 Carbon Dioxide 27 27 Level Anion Gap 16 H 14 H Blood Urea 13 11 Nitrogen Creatinine 0.81 0.73 Est Glomerular > 60 > 60 Filtrat Rate mL/min Glucose Level 91 93 Calcium Level 11.6 H 10.0 Total Bilirubin 0.6 1.1 Direct Bilirubin 0.00 0.60 #H Indirect 0.6 0.5 Bilirubin Aspartate Amino 1422 H 1392 H Transf (AST/SGOT) Alanine 691 H 692 H Aminotransferase (ALT/SGPT) Alkaline 350 H 322 H Phosphatase Total Protein 9.6 H 7.9 # Albumin 5.3 H 4.4 Globulin 4.30 H 3.50 H Albumin/Globulin 1.23 1.25 Ratio Lipase 54 Urine Color YELLOW Urine Clarity SLIGHTLY CLOUDY A Urine pH 5.0 Urine Specific 1.020 [place]ley Urine Ketones TRACE A Urine Nitrite NEGATIVE Urine Bilirubin NEGATIVE Urine NEGATIVE Urobilinogen Urine Leukocyte 2+ H Esterase Urine Microscopic 3 RBC Urine Microscopic 51 H WBC Urine Squamous MODERATE Epithelial Cells Urine Bacteria FEW A Urine Mucus FEW A Urine Hemoglobin NEGATIVE Urine Glucose NEGATIVE Urine Total NEGATIVE Protein POC Beta HCG, NEGATIVE Qualitative Hemoglobin A1c 5.4 HPI/ROS Admit Date/Time Admit Date/Time Nov 16, 2018 at 22:26 Hx of Present Illness The patient is a 48-year-old female with history of chronic pancreatitis, history of stent placement and removal. Patient underwent ERCP with removal of biliary stent and removal of sludge by Dr. Samuels in June 2018 and was discharged home in stable condition. Patient presented to the emergency room with abdominal pain as well as nausea and vomiting started 1 week ago which got significantly worse yesterday. Patient's complaints of esophageal burning with meals and diarrhea for the last week. Patient stated that she was not taking Protonix for last 3 weeks because she ran out of prescription. Patient took Tylenol and Zofran which was not relieved her pain or nausea. Patient called her ear nose and throat specialist Dr. Samuels office and was recommended to come to the emergency department. Patient noted to have elevated liver enzyme on evaluation, underwent CT of the abdomen and pelvis which revealed chronic pancreatitis, dilated pancreatic duct, unchanged from 2018, Previous cholecystectomy. Common duct within normal limits, Punctate nonobstructing left and right upper pole renal stones. Patient denies any fever chills denies any diarrhea denies any shortness of breath, denies chest pain. Patient will be admitted for further evaluation and management. ROS 12 point review of system is negative except for what mentioned in HPI PMH/Family/Social Past Medical History Medical History: GERD, other (Chronic pancreatitis, anxiety, tobacco dependence) Medications Current Medications Sodium Chloride 1,000 ml @ 125 mls/hr Q8H IV Last administered on 11/17/18at 06:36; Admin Dose 125 MLS/HR; Start 11/16/18 at 22:51 IV Flush (NS 3 ml) 3 ml PER PROTOCOL IV ; Start 11/16/18 at 23:00 Acetaminophen (Tylenol Tab) 650 mg Q6H PRN PO .PAIN 1-3 OR TEMP; Start 11/16/18 at 23:00 Famotidine (Pepcid Iv) 20 mg Q12 IV Last administered on 11/17/18at 09:52; Admin Dose 20 MG; Start 11/17/18 at 09:00 Enoxaparin Sodium (Lovenox) 30 mg DAILY SC Last administered on 11/17/18at 10:02; Admin Dose 30 MG; Start 11/17/18 at 09:00 Ondansetron HCl (Zofran Inj) 4 mg Q4 PRN IV NAUSEA/VOMITING Last administered on 11/17/18at 06:45; Admin Dose 4 MG; Start 11/17/18 at 02:00 Hydromorphone HCl (Dilaudid) 1 mg Q4H PRN IV SEVERE PAIN LEVEL 7-10 Last administered on 11/17/18at 06:41; Admin Dose 1 MG; Start 11/17/18 at 02:00 Coded Allergies: No Known Allergies (Unverified Allergy, Unknown, 09/01/18) sulfamethoxazole (Unverified Adverse Reaction, Unknown, 09/01/18) Past Surgical History history of laparoscopic cholecystectomy, , back surgery and also biliary stent placement, subsequent removal and recent pancreatic stent placement, resection of left posterior thoracic mass with local skin flap advancement closure back in 04/2018. Pathology was noted to be epidermal inclusion cyst. Past Surgical Hx: other (Status post laparoscopic cholecystectomy, status post status post back surgery, status post biliary stent placement and subsequent removal) Family History Significant Family History: no pertinent family hx Social History Alcohol Use: occasionally Smoking Status: Former smoker Drug Use: none Exam/Review of Systems Vital Signs Vitals Vital Signs Date Temp Pulse Resp B/P (MAP) Pulse Ox O2 O2 Flow FiO2 Time Delivery Rate 11/17/18 97.5 87 20 145/83 98 08:00 (103) 11/17/18 Room Air 00:46 Intake and Output 11/16/18 11/16/18 11/17/18 1515:00 23:00 07:00 IntakeIntake Total 1000 ml BalanceBalance 1000 ml Exam Constitutional: alert, oriented Neck: supple Respiratory: diminished breath sounds Cardiovascular: nl pulses Gastrointestinal: soft, non-tender Extremities: normal pulses 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: nl mental status Skin: nl BRADLEY Prado Nov 17, 2018 10:37
--- NOTE | 2018-11-17 13:14 | CONS ---
Assessment/Plan Assessment/Plan Hospital Course (Demo Recall) 48yo female with h/o chronic pancreatitis presents with abd pain and nausea 1. Abd pain 2. Nausea 3. Transaminitis 4. Chronic pancreatitis 5. S/P ERCP, sphincterotomy with removal of stent in 6. H/O GERD -PPI for GI prophylaxis 7. Anxiety -prn ativan 8. Nicotine dependence -on Nicotine patch CT abd/pelvis without contrast 11/16: IMPRESSION: 1. Chronic pancreatitis. Dilated pancreatic duct, unchanged from 2018. 2. Previous cholecystectomy. Common duct within normal limits. 3. Punctate nonobstructing left and right upper pole renal stones. Plan: MRCP Prn zofran pain management Keep NPO for now Pt examined and POC discussed with Dr. Samuels Consultation Date/Type/Reason Admit Date/Time Nov 16, 2018 at 22:26 Date/Time of Note DATE: 11/17/18 TIME: 13:14 Hx of Present Illness 48 yo female with h/o chronic pancreatitis and biliary obstruction presents for abd pain to ER after speaking with Dr. Samuels. She also c/o nausea. Labs found her to have abnormal LFTs. TB. 0.6->1.1 with DB slightly elevate at 0.6. Alk phos 350-> 322. AST 7692-6242, ALT 691-> 692. Lipase wnl, 54. Pt states pain in RUQ began over a week ago but got bad on Monday 11/13. Nausea with no vomiting. Painful burps. No bm due to not eating. No changes otherwise to bowel habits. No dysuria. Denies fever or chills. Denies unintentional weight loss. CT of abd/pelvis is unchanged from 2018. Past Medical History Medical History: GERD, other (Chronic pancreatitis, anxiety, tobacco dependence) Home Meds Active Scripts Hydrocodone/Acetaminophen ([place] 10-325 Tablet) 1 Each Tablet, 1 TAB PO Q6H PRN for PAIN, #9 TAB Prov:MARION RAWLS DO 09/01/18 Ondansetron (Ondansetron Odt) 4 Mg Tab.rapdis, 4 MG PO Q6H PRN for NAUSEA AND/OR VOMITING, #10 TAB Prov:MARION RAWLS. DO 09/01/18 Pantoprazole* (Protonix*) 40 Mg Tablet.dr, 40 MG PO AC BREAKFAST for 30 Days, TAB Prov:BRADLEY STROUD 06/23/18 Hydrocodone/Acetaminophen ([place] 5-325 Tablet) 1 Each Tablet, 1 EACH PO Q4 PRN for PAIN, #30 TAB Prov:BRADLEY STROUD 06/23/18 Reported Medications Diphenhydramine Hcl* (Benadryl*) 25 Mg Cap, 25 MG PO Q6H PRN for ITCHING, CAP 11/16/18 Multivitamins* (Theragran*) 1 Tab Tab, 1 TAB PO DAILY, TAB 11/16/18 Ascorbic Acid* (Vitamin C*) 500 Mg Capsule.sa, 500 MG PO DAILY, CAP 11/16/18 Hydroxyzine Hcl* (Hydroxyzine Hcl*) 25 Mg Tablet, 25 MG PO Q8H 11/16/18 Chlordiazepoxide/Clidinium Br (Chlordiazepoxide-Clidinium Cap) 1 Each Capsule, 1 TAB PO DAILY PRN for DIARRHEA 09/01/18 Temazepam* (Temazepam*) 15 Mg Capsule, 15 MG PO HS MAY REPEAT X 1 PRN for INSOMNIA, CAP 09/01/18 Loperamide Hcl* (Loperamide Hcl*) 2 Mg Cap, 2 MG PO DAILY PRN for DIARRHEA, CAP 09/01/18 Ifajso-Ylykjvoz-Aqeeuuq* (Agustín HENRY* 24,000) 24,000 L-76,000-120,000 Unit Capsule.dr, 1 CAP PO WITH MEALS, CAP 09/01/18 Nicotine* (Nicotine* Patch) 21 mg/day Patch, 1 EACH TD DAILY, PATCH 06/18/18 Medications Current Medications Sodium Chloride 1,000 ml @ 125 mls/hr Q8H IV Last administered on 11/17/18at 06:36; Admin Dose 125 MLS/HR; Start 11/16/18 at 22:51 IV Flush (NS 3 ml) 3 ml PER PROTOCOL IV ; Start 11/16/18 at 23:00 Acetaminophen (Tylenol Tab) 650 mg Q6H PRN PO .PAIN 1-3 OR TEMP; Start 11/16/18 at 23:00 Enoxaparin Sodium (Lovenox) 30 mg DAILY SC Last administered on 11/17/18at 10:02; Admin Dose 30 MG; Start 11/17/18 at 09:00 Ondansetron HCl (Zofran Inj) 4 mg Q4 PRN IV NAUSEA/VOMITING Last administered on 11/17/18at 06:45; Admin Dose 4 MG; Start 11/17/18 at 02:00 Hydromorphone HCl (Dilaudid) 1 mg Q4H PRN IV SEVERE PAIN LEVEL 7-10 Last administered on 11/17/18at 10:52; Admin Dose 1 MG; Start 11/17/18 at 02:00 Pantoprazole (Protonix Iv) 40 mg DAILY@06 IV ; Start 11/17/18 at 14:00 Nicotine (Nicoderm 14 Mg/ 24hr) 1 patch DAILY TRANSDERM ; Start 11/17/18 at 14:30 Metoclopramide HCl (Reglan) 10 mg Q6H PRN IV NAUSEA AND/OR VOMITING; Start 11/17/18 at 13:00 Lorazepam (Ativan) 0.5 mg Q6H PRN PO ANXIETY; Start 11/17/18 at 13:00 Potassium Chloride 40 meq/ Dextrose/Sodium Chloride 1,000 ml @ 70 mls/hr [id number] IV ; Start 11/17/18 at 14:30 Allergies: Coded Allergies: No Known Allergies (Unverified Allergy, Unknown, 09/01/18) sulfamethoxazole (Unverified Adverse Reaction, Unknown, 09/01/18) Past Surgical History Past Surgical Hx: other (Status post laparoscopic cholecystectomy, status post status post back surgery, status post biliary stent placement and subsequent removal) Social History Alcohol Use: occasionally Smoking Status: Former smoker Drug Use: none Exam/Review of Systems Exam Vitals Vital Signs Date Temp Pulse Resp B/P (MAP) Pulse Ox O2 O2 Flow FiO2 Time Delivery Rate 11/17/18 97.5 87 20 145/83 98 08:00 (103) 11/17/18 Room Air 00:46 Intake and Output 11/16/18 11/16/18 11/17/18 1515:00 23:00 07:00 IntakeIntake Total 1000 ml BalanceBalance 1000 ml Constitutional: alert, oriented Psych: no complaints Head: normocephalic Eyes: nl sclera, PERRL Respiratory: clear to auscultation Cardiovascular: regular rate and rhythm Gastrointestinal: soft, bowel sounds, tender Musculoskeletal: nl gait and stance Extremities: normal pulses 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: nl mental status Results Result Diagram: 11/17/18 0433 11/17/18 0433 Results 24hrs Laboratory Tests Test 11/16/18 21:16 11/16/18 22:00 11/16/18 22:10 11/17/18 04:33 White Blood Count 10.1 7.7 # Red Blood Count 4.73 4.19 L Hemoglobin 14.6 13.3 Hematocrit 43.3 39.2 Mean Corpuscular 91.5 93.6 Volume Mean Corpuscular 30.9 31.7 Hemoglobin Mean Corpuscular 33.7 33.9 Hemoglobin Concen t Red Cell 13.2 13.1 Distribution Width Platelet Count 383 # 326 Mean Platelet 10.3 10.5 H Volume Immature 0.300 0.300 Granulocytes % Neutrophils % 56.5 Segmented 46 Neutrophils % (Manual) Lymphocytes % 34.0 Lymphocytes % 46 (Manual) Monocytes % 8.2 Monocytes % 7 (Manual) Eosinophils % 0.4 Eosinophils % 1 (Manual) Basophils % 0.6 Nucleated Red 0.0 0.0 Blood Cells % Immature 0.030 0.020 Granulocytes # Neutrophils # 4.4 Lymphocytes 4.6 H (Manual) Lymphocytes # 2.6 Monocytes # 0.6 Monocytes # 0.7 (Manual) Eosinophils # 0.0 Basophils # 0.1 Nucleated Red 0.0 Blood Cells # Platelet Estimate NORMAL Polychromasia 3+ Sodium Level 141 142 Potassium Level 3.8 3.3 L Chloride Level 98 101 Carbon Dioxide 27 27 Level Anion Gap 16 H 14 H Blood Urea 13 11 Nitrogen Creatinine 0.81 0.73 Est Glomerular > 60 > 60 Filtrat Rate mL/min Glucose Level 91 93 Calcium Level 11.6 H 10.0 Total Bilirubin 0.6 1.1 Direct Bilirubin 0.00 0.60 #H Indirect 0.6 0.5 Bilirubin Aspartate Amino 1422 H 1392 H Transf (AST/SGOT) Alanine 691 H 692 H Aminotransferase (ALT/SGPT) Alkaline 350 H 322 H Phosphatase Total Protein 9.6 H 7.9 # Albumin 5.3 H 4.4 Globulin 4.30 H 3.50 H Albumin/Globulin 1.23 1.25 Ratio Lipase 54 Urine Color YELLOW Urine Clarity SLIGHTLY CLOUDY A Urine pH 5.0 Urine Specific 1.020 Karval Urine Ketones TRACE A Urine Nitrite NEGATIVE Urine Bilirubin NEGATIVE Urine NEGATIVE Urobilinogen Urine Leukocyte 2+ H Esterase Urine Microscopic 3 RBC Urine Microscopic 51 H WBC Urine Squamous MODERATE Epithelial Cells Urine Bacteria FEW A Urine Mucus FEW A Urine Hemoglobin NEGATIVE Urine Glucose NEGATIVE Urine Total NEGATIVE Protein POC Beta HCG, NEGATIVE Qualitative Hemoglobin A1c 5.4 Medications Medication Current Medications Sodium Chloride 1,000 ml @ 125 mls/hr Q8H IV Last administered on 11/17/18at 06:36; Admin Dose 125 MLS/HR; Start 11/16/18 at 22:51 IV Flush (NS 3 ml) 3 ml PER PROTOCOL IV ; Start 11/16/18 at 23:00 Acetaminophen (Tylenol Tab) 650 mg Q6H PRN PO .PAIN 1-3 OR TEMP; Start 11/16/18 at 23:00 Enoxaparin Sodium (Lovenox) 30 mg DAILY SC Last administered on 11/17/18at 10:02; Admin Dose 30 MG; Start 11/17/18 at 09:00 Ondansetron HCl (Zofran Inj) 4 mg Q4 PRN IV NAUSEA/VOMITING Last administered on 11/17/18at 06:45; Admin Dose 4 MG; Start 11/17/18 at 02:00 Hydromorphone HCl (Dilaudid) 1 mg Q4H PRN IV SEVERE PAIN LEVEL 7-10 Last administered on 11/17/18at 10:52; Admin Dose 1 MG; Start 11/17/18 at 02:00 Pantoprazole (Protonix Iv) 40 mg DAILY@06 IV ; Start 11/17/18 at 14:00 Nicotine (Nicoderm 14 Mg/ 24hr) 1 patch DAILY TRANSDERM ; Start 11/17/18 at 14:30 Metoclopramide HCl (Reglan) 10 mg Q6H PRN IV NAUSEA AND/OR VOMITING; Start 11/17/18 at 13:00 Lorazepam (Ativan) 0.5 mg Q6H PRN PO ANXIETY; Start 11/17/18 at 13:00 Potassium Chloride 40 meq/ Dextrose/Sodium Chloride 1,000 ml @ 70 mls/hr [id number] IV ; Start 11/17/18 at 14:30 [place] SURESH Nov 17, 2018 13:14
[2018-11-17 14:17] VITALS: BP 154/96; PULSE 86; RESP 20
[2018-11-17] MEDS: LORAZEPAM 0.5 MG TAB PO PRN ×2 (14:28→19:56)
[2018-11-17] MEDS: POTASSIUM CHLORIDE IV SCH (14:28)
[2018-11-17] MEDS: NACL IV SCH (14:28)
[2018-11-17] MEDS: NICOTINE (14 MG/24 HR) PATCH TRANSDERM SCH (14:28)
[2018-11-17] MEDS: PANTOPRAZOLE 40 MG INJ IV SCH (14:28)
[2018-11-17] MEDS: DEXTROSE IV SCH (14:28)
[2018-11-17] MEDS: METOCLOPRAMIDE 10 MG INJ IV PRN (18:48)
[2018-11-17 22:00] VITALS: BP 134/81; PULSE 89; RESP 20
[2018-11-18] MEDS: ONDANSETRON 4 MG INJ IV PRN ×3 (00:08→21:09)
[2018-11-18] MEDS: HYDROmorphONE 1 MG/ML SYG IV PRN ×6 (00:57→21:07)
[2018-11-18 01:00] VITALS: BP 150/82; PULSE 77; RESP 18
[2018-11-18] MEDS: NACL IV SCH ×2 (04:48→08:48)
[2018-11-18] MEDS: POTASSIUM CHLORIDE IV SCH ×2 (04:48→08:48)
[2018-11-18] MEDS: DEXTROSE IV SCH ×2 (04:48→08:48)
[2018-11-18] MEDS: PANTOPRAZOLE 40 MG INJ IV SCH (05:05)
[2018-11-18 07:59] VITALS: BP 129/99; PULSE 103; RESP 20
[2018-11-18] MEDS: LORAZEPAM 0.5 MG TAB PO PRN ×2 (08:47→20:25)
[2018-11-18] MEDS: NICOTINE (14 MG/24 HR) PATCH TRANSDERM SCH (08:47)
[2018-11-18] MEDS: ENOXAPARIN 30 MG/0.3 ML SYG SC SCH (08:53)
[2018-11-18] MEDS: METOCLOPRAMIDE 10 MG INJ IV PRN ×2 (09:06→17:16)
[2018-11-18 13:45] VITALS: BP 128/69; PULSE 100; RESP 20
--- NOTE | 2018-11-18 15:51 | PN ---
Date/Time of Note Date/Time of Note DATE: 11/18/18 TIME: 15:49 Assessment/Plan VTE Prophylaxis Risk score (from Nsg)>0 risk: 2 SCD applied (from Nsg): Yes Pharmacological prophylaxis: LMWH Lines/Catheters IV Catheter Type (from Nrsg): Peripheral IV Assessment/Plan Hospital Course Patient remains hemodynamically stable, abdominal pain and nausea is adequately controlled. MRI of the abdomen noted. Assessment/Plan -Abdominal pain, nausea and vomiting. Keep patient n.p.o. Dilaudid as needed for pain and Zofran as needed for nausea. Dr. Samuels is following in gastroenterology consultation. -Transaminitis -Status post ERCP, sphincterotomy and stent placement. Status post ERCP, re moval of the biliary stent, removal of this large by Dr. Samuels on 06/18/2018. -History of GERD, continue Protonix. -Anxiety, continue Ativan as needed -Tobacco dependence, cessation is strongly advised, continue nicotine patch. -History of chronic pancreatitis Further recommendations based on clinical course. Plan of care discussed with Dr. Small. Result Diagram: 11/17/18 0433 11/18/18 0519 Results 24hrs Laboratory Tests Test 11/18/18 05:19 Sodium Level 139 Potassium Level 4.0 Chloride Level 106 Carbon Dioxide Level 22 Anion Gap 11 Blood Urea Nitrogen 4 L Creatinine 0.57 Est Glomerular Filtrat Rate mL/min > 60 Glucose Level 126 Calcium Level 9.9 Total Bilirubin 1.1 Direct Bilirubin 0.00 # Indirect Bilirubin 1.1 Aspartate Amino Transf (AST/SGOT) 558 H Alanine Aminotransferase (ALT/SGPT) 509 H Alkaline Phosphatase 410 H Total Protein 8.0 Albumin 4.4 Globulin 3.60 H Albumin/Globulin Ratio 1.22 Exam/Review of Systems Exam Vitals Vital Signs Date Temp Pulse Resp B/P (MAP) Pulse Ox O2 O2 Flow FiO2 Time Delivery Rate 11/18/18 97.6 100 20 128/69 97 13:45 (88) 11/17/18 Room Air 22:00 Intake and Output 11/17/18 11/17/18 11/18/18 1515:00 23:00 07:00 IntakeIntake Total 900 ml 180 ml BalanceBalance 900 ml 180 ml Exam Constitutional: alert, oriented Neck: supple Respiratory: diminished breath sounds Cardiovascular: nl pulses Gastrointestinal: soft, non-tender Extremities: normal pulses 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: nl mental status Skin: nl turgor Results Results 24hrs Laboratory Tests Test 11/18/18 05:19 Sodium Level 139 Potassium Level 4.0 Chloride Level 106 Carbon Dioxide Level 22 Anion Gap 11 Blood Urea Nitrogen 4 L Creatinine 0.57 Est Glomerular Filtrat Rate mL/min > 60 Glucose Level 126 Calcium Level 9.9 Total Bilirubin 1.1 Direct Bilirubin 0.00 # Indirect Bilirubin 1.1 Aspartate Amino Transf (AST/SGOT) 558 H Alanine Aminotransferase (ALT/SGPT) 509 H Alkaline Phosphatase 410 H Total Protein 8.0 Albumin 4.4 Globulin 3.60 H Albumin/Globulin Ratio 1.22 Medications Medication Current Medications IV Flush (NS 3 ml) 3 ml PER PROTOCOL IV ; Start 11/16/18 at 23:00 Acetaminophen (Tylenol Tab) 650 mg Q6H PRN PO .PAIN 1-3 OR TEMP; Start 11/16/18 at 23:00 Enoxaparin Sodium (Lovenox) 30 mg DAILY SC Last administered on 11/18/18at 08:53; Admin Dose 30 MG; Start 11/17/18 at 09:00 Ondansetron HCl (Zofran Inj) 4 mg Q4 PRN IV NAUSEA/VOMITING Last administered on 11/18/18at 13:30; Admin Dose 4 MG; Start 11/17/18 at 02:00 Hydromorphone HCl (Dilaudid) 1 mg Q4H PRN IV SEVERE PAIN LEVEL 7-10 Last administered on 11/18/18at 13:30; Admin Dose 1 MG; Start 11/17/18 at 02:00 Pantoprazole (Protonix Iv) 40 mg DAILY@06 IV Last administered on 11/18/18at 05:05; Admin Dose 40 MG; Start 11/17/18 at 14:00 Nicotine (Nicoderm 14 Mg/ 24hr) 1 patch DAILY TRANSDERM Last administered on 11/18/18at 08:47; Admin Dose 1 PATCH; Start 11/17/18 at 14:30 Metoclopramide HCl (Reglan) 10 mg Q6H PRN IV NAUSEA AND/OR VOMITING Last administered on 11/18/18at 09:06; Admin Dose 10 MG; Start 11/17/18 at 13:00 Lorazepam (Ativan) 0.5 mg Q6H PRN PO ANXIETY Last administered on 11/18/18at 08:47; Admin Dose 0.5 MG; Start 11/17/18 at 13:00 Potassium Chloride 40 meq/ Dextrose/Sodium Chloride 1,000 ml @ 70 mls/hr [id number] IV Last administered on 11/18/18at 08:48; Admin Dose 70 MLS/HR; Start 11/17/18 at 14:30 BRADLEY STROUD Nov 18, 2018 15:51
--- NOTE | 2018-11-18 17:10 | CONS ---
Assessment/Plan Assessment/Plan Assessment/Plan (Daily) 48yo female with h/o chronic pancreatitis presents with abd pain and nausea 1. Abd pain 2. Nausea 3. Transaminitis 4. Chronic pancreatitis 5. S/P ERCP, sphincterotomy with removal of stent in 6. H/O GERD -PPI for GI prophylaxis 7. Anxiety -prn ativan 8. Nicotine dependence -on Nicotine patch 9. Patient is a bile duct stone based on MRCP report Plan She definitely needs ERCP with removal of the stone. Pain management Consultation Date/Type/Reason Admit Date/Time Nov 16, 2018 at 22:26 Initial Consult Date Date/Time of Note DATE: 11/18/18 TIME: 17:09 24 HR Interval Summary Free Text/Dictation Patient complains of abdominal pain Also complains of nausea and vomiting Exam/Review of Systems Exam Vitals Vital Signs Date Temp Pulse Resp B/P (MAP) Pulse Ox O2 O2 Flow FiO2 Time Delivery Rate 11/18/18 97.6 100 20 128/69 97 13:45 (88) 11/17/18 Room Air 22:00 Intake and Output 11/17/18 11/17/18 11/18/18 1515:00 23:00 07:00 IntakeIntake Total 900 ml 180 ml BalanceBalance 900 ml 180 ml Constitutional: alert, oriented, well developed Psych: no complaints, nl mood/affect Head: normocephalic, atraumatic Eyes: nl conjunctiva, EOMI, nl lids, nl sclera, PERRL ENMT: nl external ears & nose, nl lips & teeth, nl nasal mucosa & septum Neck: supple, non-tender Respiratory: clear to auscultation, normal air movement Cardiovascular: regular rate and rhythm, nl pulses Gastrointestinal: soft, nl liver, spleen, non-tender Musculoskeletal: nl extremities to inspection, nl gait and stance Extremities: normal pulses 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: METAL MACHINE SETTER II-XII intact, nl mental status, nl speech, nl strength Skin: nl turgor; No rash or lesions Lymph: nl lymph nodes Results Result Diagram: 11/17/18 0433 11/18/18 0519 Results 24hrs Laboratory Tests Test 11/18/18 05:19 Sodium Level 139 Potassium Level 4.0 Chloride Level 106 Carbon Dioxide Level 22 Anion Gap 11 Blood Urea Nitrogen 4 L Creatinine 0.57 Est Glomerular Filtrat Rate mL/min > 60 Glucose Level 126 Calcium Level 9.9 Total Bilirubin 1.1 Direct Bilirubin 0.00 # Indirect Bilirubin 1.1 Aspartate Amino Transf (AST/SGOT) 558 H Alanine Aminotransferase (ALT/SGPT) 509 H Alkaline Phosphatase 410 H Total Protein 8.0 Albumin 4.4 Globulin 3.60 H Albumin/Globulin Ratio 1.22 Medications Medication Current Medications IV Flush (NS 3 ml) 3 ml PER PROTOCOL IV ; Start 11/16/18 at 23:00 Acetaminophen (Tylenol Tab) 650 mg Q6H PRN PO .PAIN 1-3 OR TEMP; Start 11/16/18 at 23:00 Enoxaparin Sodium (Lovenox) 30 mg DAILY SC Last administered on 11/18/18 08:53; Admin Dose 30 MG; Start 11/17/18 at 09:00 Ondansetron HCl (Zofran Inj) 4 mg Q4 PRN IV NAUSEA/VOMITING Last administered on 11/18/18 13:30; Admin Dose 4 MG; Start 11/17/18 at 02:00 Hydromorphone HCl (Dilaudid) 1 mg Q4H PRN IV SEVERE PAIN LEVEL 7-10 Last administered on 11/18/18 13:30; Admin Dose 1 MG; Start 11/17/18 at 02:00 Pantoprazole (Protonix Iv) 40 mg DAILY@06 IV Last administered on 11/18/18 05:05; Admin Dose 40 MG; Start 11/17/18 at 14:00 Nicotine (Nicoderm 14 Mg/ 24hr) 1 patch DAILY TRANSDERM Last administered on 11/18/18 08:47; Admin Dose 1 PATCH; Start 11/17/18 at 14:30 Metoclopramide HCl (Reglan) 10 mg Q6H PRN IV NAUSEA AND/OR VOMITING Last administered on 11/18/18 09:06; Admin Dose 10 MG; Start 11/17/18 at 13:00 Lorazepam (Ativan) 0.5 mg Q6H PRN PO ANXIETY Last administered on 11/18/18 08:47; Admin Dose 0.5 MG; Start 11/17/18 at 13:00 Potassium Chloride 40 meq/ Dextrose/Sodium Chloride 1,000 ml @ 70 mls/hr [id number] IV Last administered on 11/18/18 08:48; Admin Dose 70 MLS/HR; Start 11/17/18 at 14:30 DAVONTE COFFEY MD Nov 18, 2018 17:10
[2018-11-18 20:00] VITALS: BP 153/92; PULSE 75; RESP 19
[2018-11-19] VITALS (15 sets, daily range): BP systolic 121–167; BP diastolic 81–102; PULSE 70–114; RESP 17–21
[2018-11-19] MEDS: NACL IV SCH ×3 (00:36→18:50)
[2018-11-19] MEDS: POTASSIUM CHLORIDE IV SCH ×3 (00:36→18:50)
[2018-11-19] MEDS: DEXTROSE IV SCH ×3 (00:36→18:50)
[2018-11-19] MEDS: HYDROmorphONE 1 MG/ML SYG IV PRN ×6 (01:37→23:59)
[2018-11-19] MEDS: METOCLOPRAMIDE 10 MG INJ IV PRN ×2 (01:55→15:17)
[2018-11-19] MEDS: PANTOPRAZOLE 40 MG INJ IV SCH (05:41)
[2018-11-19] MEDS: NICOTINE (14 MG/24 HR) PATCH TRANSDERM SCH (08:48)
[2018-11-19] MEDS: ENOXAPARIN 30 MG/0.3 ML SYG SC SCH (08:50)
[2018-11-19] MEDS: ONDANSETRON 4 MG INJ IV PRN ×2 (09:42→22:20)
--- NOTE | 2018-11-19 11:24 | PN ---
Date/Time of Note Date/Time of Note DATE: 11/19/18 TIME: 11:21 Assessment/Plan VTE Prophylaxis Risk score (from Nsg)>0 risk: 2 SCD applied (from Ns): Yes Pharmacological prophylaxis: NA/contraindicated Pharm contraindication: surgical contra Lines/Catheters IV Catheter Type (from Nrsg): Peripheral IV Assessment/Plan Hospital Course Pt is NPO for ERCP today, abd pain and nausea are well controlled. Assessment/Plan -Abdominal pain, nausea and vomiting. Keep patient n.p.o. Dilaudid as needed for pain and Zofran as needed for nausea. Dr. Samuels is following in gastroenterology consultation. -Transaminitis -Status post ERCP, sphincterotomy and stent placement. Status post ERCP, removal of the biliary stent, removal of sludge by Dr. Samuels on 06/18/2018. -History of GERD, continue Protonix. -Anxiety, continue Ativan as needed -Tobacco dependence, cessation is strongly advised, continue nicotine patch. -History of chronic pancreatitis Further recommendations based on clinical course. Plan of care discussed with Dr. Small. Result Diagram: 11/17/18 0433 11/18/18 0519 Exam/Review of Systems Exam Vitals Vital Signs Date Temp Pulse Resp B/P (MAP) Pulse Ox O2 O2 Flow FiO2 Time Delivery Rate 11/19/18 98.3 98 17 121/83 100 07:58 (96) 11/17/18 Room Air 22:00 Intake and Output 11/18/18 11/18/18 11/19/18 1515:00 23:00 07:00 IntakeIntake Total 820 ml 580 ml 770 ml OutputOutput Total 100 ml 200 ml BalanceBalance 720 ml 380 ml 770 ml Exam Constitutional: alert, oriented Neck: supple Respiratory: diminished breath sounds Cardiovascular: nl pulses Gastrointestinal: soft, non-tender Extremities: normal pulses 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: nl mental status Skin: nl turgor Medications Medication Current Medications IV Flush (NS 3 ml) 3 ml PER PROTOCOL IV ; Start 11/16/18 at 23:00 Acetaminophen (Tylenol Tab) 650 mg Q6H PRN PO .PAIN 1-3 OR TEMP; Start 11/16/18 at 23:00 Enoxaparin Sodium (Lovenox) 30 mg DAILY SC Last administered on 11/19/18at 08:50; Admin Dose 30 MG; Start 11/17/18 at 09:00 Ondansetron HCl (Zofran Inj) 4 mg Q4 PRN IV NAUSEA/VOMITING Last administered on 11/19/18 09:42; Admin Dose 4 MG; Start 11/17/18 at 02:00 Hydromorphone HCl (Dilaudid) 1 mg Q4H PRN IV SEVERE PAIN LEVEL 7-10 Last administered on 11/19/18 09:39; Admin Dose 1 MG; Start 11/17/18 at 02:00 Pantoprazole (Protonix Iv) 40 mg DAILY@06 IV Last administered on 11/19/18 05:41; Admin Dose 40 MG; Start 11/17/18 at 14:00 Nicotine (Nicoderm 14 Mg/ 24hr) 1 patch DAILY TRANSDERM Last administered on 11/19/18 08:48; Admin Dose 1 PATCH; Start 11/17/18 at 14:30 Metoclopramide HCl (Reglan) 10 mg Q6H PRN IV NAUSEA AND/OR VOMITING Last a dministered on 11/19/18 01:55; Admin Dose 10 MG; Start 11/17/18 at 13:00 Lorazepam (Ativan) 0.5 mg Q6H PRN PO ANXIETY Last administered on 11/18/18 20:25; Admin Dose 0.5 MG; Start 11/17/18 at 13:00 Potassium Chloride 40 meq/ Dextrose/Sodium Chloride 1,000 ml @ 70 mls/hr [id number] IV Last administered on 11/19/18 00:36; Admin Dose 70 MLS/HR; Start 11/17/18 at 14:30 BRADLEY STROUD Nov 19, 2018 11:24
[2018-11-19] MEDS: LORAZEPAM 0.5 MG TAB PO PRN ×2 (12:46→22:19)
--- NOTE | 2018-11-19 16:07 | PREAC ---
Date/Time of Note Date/Time of Note DATE: 11/19/18 TIME: 16:06 Anesthesia Eval and Record Evaluation Time Pre-Procedure Interview DATE: 11/19/18 TIME: 16:06 Age 48 Sex female NPO: 8 hrs Preoperative diagnosis abd pain and nausea Planned procedure ERCP Past Medical History Past Medical History: Includes Endo: Other (pancreatitis) Pulm: Smoking Hx GI: GERD Psych: Anxiety Surgery & Anesthesia Issues No known issue Meds Anticoagulation: No Beta Marina within 24 hr: No Reason Beta Marina not given: Pt. not on B-Marina Active Scripts Hydrocodone/Acetaminophen ([place] 10-325 Tablet) 1 Each Tablet, 1 TAB PO Q6H PRN for PAIN, #9 TAB Prov:MARION RAWLS DO 09/01/18 Ondansetron (Ondansetron Odt) 4 Mg Tab.rapdis, 4 MG PO Q6H PRN for NAUSEA AND/OR VOMITING, #10 TAB Prov:ROSELIA RAWLSSTJUNGS Bethany. DO 09/01/18 Pantoprazole* (Protonix*) 40 Mg Tablet.dr, 40 MG PO AC BREAKFAST for 30 Days, TAB Prov:BRADLEY STROUD 06/23/18 Hydrocodone/Acetaminophen ([place] 5-325 Tablet) 1 Each Tablet, 1 EACH PO Q4 PRN for PAIN, #30 TAB Prov:BRADLEY STROUD 06/23/18 Reported Medications Diphenhydramine Hcl* (Benadryl*) 25 Mg Cap, 25 MG PO Q6H PRN for ITCHING, CAP 11/16/18 Multivitamins* (Theragran*) 1 Tab Tab, 1 TAB PO DAILY, TAB 11/16/18 Ascorbic Acid* (Vitamin C*) 500 Mg Capsule.sa, 500 MG PO DAILY, CAP 11/16/18 Hydroxyzine Hcl* (Hydroxyzine Hcl*) 25 Mg Tablet, 25 MG PO Q8H 11/16/18 Chlordiazepoxide/Clidinium Br (Chlordiazepoxide-Clidinium Cap) 1 Each Capsule, 1 TAB PO DAILY PRN for DIARRHEA 09/01/18 Temazepam* (Temazepam*) 15 Mg Capsule, 15 MG PO HS MAY REPEAT X 1 PRN for INSOMNIA, CAP 09/01/18 Loperamide Hcl* (Loperamide Hcl*) 2 Mg Cap, 2 MG PO DAILY PRN for DIARRHEA, CAP 09/01/18 Jaoyzd-Fkzvforo-Qlmqsvr* (Agustín DR* 24,000) 24,000 L-76,000-120,000 Unit Capsule.dr, 1 CAP PO WITH MEALS, CAP 09/01/18 Nicotine* (Nicotine* Patch) 21 mg/day Patch, 1 EACH TD DAILY, PATCH 06/18/18 Current Medications IV Flush (NS 3 ml) 3 ml PER PROTOCOL IV ; Start 11/16/18 at 23:00 Acetaminophen (Tylenol Tab) 650 mg Q6H PRN PO .PAIN 1-3 OR TEMP; Start 11/16/18 at 23:00 Enoxaparin Sodium (Lovenox) 30 mg DAILY SC Last administered on 11/19/18 08:50; Admin Dose 30 MG; Start 11/17/18 at 09:00 Ondansetron HCl (Zofran Inj) 4 mg Q4 PRN IV NAUSEA/VOMITING Last administered on 11/19/18 09:42; Admin Dose 4 MG; Start 11/17/18 at 02:00 Hydromorphone HCl (Dilaudid) 1 mg Q4H PRN IV SEVERE PAIN LEVEL 7-10 Last administered on 11/19/18 13:52; Admin Dose 1 MG; Start 11/17/18 at 02:00 Pantoprazole (Protonix Iv) 40 mg DAILY@06 IV Last administered on 11/19/18 05:41; Admin Dose 40 MG; Start 11/17/18 at 14:00 Nicotine (Nicoderm 14 Mg/ 24hr) 1 patch DAILY TRANSDERM Last administered on 11/19/18 08:48; Admin Dose 1 PATCH; Start 11/17/18 at 14:30 Metoclopramide HCl (Reglan) 10 mg Q6H PRN IV NAUSEA AND/OR VOMITING Last administered on 11/19/18 15:17; Admin Dose 10 MG; Start 11/17/18 at 13:00 Lorazepam (Ativan) 0.5 mg Q6H PRN PO ANXIETY Last administered on 11/19/18 12:46; Admin Dose 0.5 MG; Start 11/17/18 at 13:00 Potassium Chloride 40 meq/ Dextrose/Sodium Chloride 1,000 ml @ 70 mls/hr Q1 4H18M IV Last administered on 4/18/19at 00:36; Admin Dose 70 MLS/HR; Start 11/17/18 at 14:30 Meds reviewed: Yes Allergies Coded Allergies: No Known Allergies (Unverified Allergy, Unknown, 09/01/18) sulfamethoxazole (Unverified Adverse Reaction, Unknown, 09/01/18) Allergies Reviewed: Yes Labs/Studies Labs Reviewed: Reviewed by anesthesiologist Result Diagram: 11/17/18 0433 11/18/18 0519 test: Negative Pre-procedure Exam Last vitals Vital Signs Date Temp Pulse Resp B/P (MAP) Pulse Ox O2 O2 Flow FiO2 Time Delivery Rate 11/19/18 98.1 95 17 139/81 98 15:14 (100) 11/17/18 Room Air 22:00 Airway: Adequate mouth opening Mallampati: Mallampati II Teeth: Normal Lung: Normal Heart: Normal ASA Physical Status ASA physical status: 2 Emergency: None Planned Anesthetic General/MAC: ETT Pre-operative Attestations Prior to commencing anesthesia and surgery, the patient was re-evaluated, there was verification of: *The patient's identity *The results of appropriate recent lab work and preoperative vital signs *The above evaluation not changing prior to induction *Anesthetic plan, risk benefits, alternative and complications discussed with patient/family; questions answered; patient/family understands, accepts and wishes to proceed. JADEN BEASLEY Nov 19, 2018 16:07
[2018-11-19] MEDS ORDERED: IOHEXOL 300MG/ML 30 ML BTL ONE (16:10)
[2018-11-19] MEDS ORDERED: INDOMETHACIN 50 MG SUPP PR ONE (16:12)
[2018-11-19] MEDS ORDERED: PROPOFOL 100 ML ONE (16:30)
[2018-11-19] MEDS ORDERED: LIDOCAINE 2% (SDV) 5 ML INJ ONE (16:31)
[2018-11-19] MEDS ORDERED: ROCURONIUM 50 MG INJ ONE (16:31)
--- NOTE | 2018-11-19 16:45 | HPN ---
Date/Time of Note Date/Time of Note DATE: 11/19/18 TIME: 16:44 Interval H&P Admission Note Pt. seen H&P reviewed: No system changes DAVONTE COFFEY MD Nov 19, 2018 16:45
[2018-11-19] MEDS ORDERED: ONDANSETRON 4 MG INJ ONE (17:06)
[2018-11-19] MEDS ORDERED: DEXAMETHASONE 4 MG/ML 5 ML INJ ONE (17:06)
[2018-11-19] MEDS ORDERED: NEOSTIGMINE 3 MG/3 ML SYRINGE ONE (17:32)
[2018-11-19] MEDS ORDERED: GLYCOPYRROLATE 0.4 MG INJ ONE (17:33)
--- NOTE | 2018-11-19 17:38 | PAC ---
Date/Time of Note Date/Time of Note DATE: 11/19/18 TIME: 17:38 Post-Anesthesia Notes Post-Anesthesia Note Last documented vital signs Vital Signs Date Temp Pulse Resp B/P (MAP) Pulse Ox O2 O2 Flow FiO2 Time Delivery Rate 11/19/18 98.1 95 17 139/81 98 1738 (100) 11/17/18 Room Air 22:00 Activity: WNL Respiratory function: WNL Cardiovascular function: WNL Mental status: Baseline Pain reasonably controlled: Yes Hydration appropriate: Yes Nausea/Vomiting absent: Yes TRACEE REN Nov 19, 2018 17:38
[2018-11-19] MEDS ORDERED: hydrALAzine 20 MG INJ IV PRN (18:00)
[2018-11-19] MEDS ORDERED: EPHEDrine SULFATE 50 MG/5 ML SYG IV PRN (18:00)
[2018-11-19] MEDS ORDERED: OXYCODONE/ACETAMINOPHEN (5/325) TAB PO PRN ×2 (18:00)
[2018-11-19] MEDS ORDERED: KETOROLAC 30 MG INJ IV PRN (18:00)
[2018-11-19] MEDS ORDERED: DIPHENHYDRAMINE 50 MG INJ IV PRN (18:00)
[2018-11-19] MEDS ORDERED: MEPERIDINE 25 MG INJ IV PRN (18:00)
[2018-11-19] MEDS ORDERED: ALBUTEROL 0.083% (NEB) 2.5 MG/3 ML AMP HHN PRN (18:00)
[2018-11-19] MEDS ORDERED: FENTAnyl 50 MCG/ML VIAL IV PRN ×3 (18:00)
[2018-11-19] MEDS ORDERED: METOCLOPRAMIDE 10 MG INJ IV PRN (18:00)
[2018-11-19] MEDS ORDERED: ONDANSETRON 4 MG INJ IV PRN (18:00)
[2018-11-19] MEDS ORDERED: LABETALOL HCL 20MG INJ IV PRN (18:00)
[2018-11-20 02:00] VITALS: BP 110/68; PULSE 89; RESP 18
[2018-11-20] MEDS: HYDROmorphONE 1 MG/ML SYG IV PRN ×5 (03:44→19:49)
[2018-11-20] MEDS: ONDANSETRON 4 MG INJ IV PRN (03:50)
[2018-11-20] MEDS: LORAZEPAM 0.5 MG TAB PO PRN ×3 (04:27→21:15)
[2018-11-20] MEDS: PANTOPRAZOLE 40 MG INJ IV SCH (05:33)
[2018-11-20] MEDS: NICOTINE (14 MG/24 HR) PATCH TRANSDERM SCH (08:06)
[2018-11-20] MEDS: METOCLOPRAMIDE 10 MG INJ IV PRN ×2 (08:06→15:49)
[2018-11-20 08:09] VITALS: BP 120/81; PULSE 87; RESP 18
[2018-11-20] MEDS: ENOXAPARIN 30 MG/0.3 ML SYG SC SCH (08:10)
[2018-11-20] MEDS: DEXTROSE IV SCH (10:32)
[2018-11-20] MEDS: POTASSIUM CHLORIDE IV SCH (10:32)
[2018-11-20] MEDS: NACL IV SCH (10:32)
--- NOTE | 2018-11-20 10:46 | PN ---
Date/Time of Note Date/Time of Note DATE: 11/20/18 TIME: 10:45 Assessment/Plan VTE Prophylaxis Risk score (from Nsg)>0 risk: 1 SCD applied (from Ns): No SCD contraindicated: patient refusal Pharmacological prophylaxis: LMWH Lines/Catheters IV Catheter Type (from Nrs): Peripheral IV Assessment/Plan Hospital Course Patient is s/p ERCP with removal of stone and placement of metallic stent for biliary stricture, patient tolerates liquid diet well, pain and nausea is well controlled. Assessment/Plan -S/P ERCP, removal of the pigmented stone and placement of self-expanding metallic stent for biliary stricture on 11/19/18. Dr. Samuels is following in gastroenterology consultation. -Abdominal pain, nausea and vomiting. Keep patient n.p.o. Dilaudid as needed for pain and Zofran as needed for nausea. -Transaminitis -Status post ERCP, sphincterotomy and stent placement. Status post ERCP, removal of the biliary stent, removal of sludge by Dr. Samuels on 06/18/2018. -History of GERD, continue Protonix. -Anxiety, continue Ativan as needed -Tobacco dependence, continue nicotine patch. -History of chronic pancreatitis Further recommendations based on clinical course. Plan of care discussed with Dr. Small. Result Diagram: 11/17/18 0433 11/18/18 0519 Exam/Review of Systems Exam Vitals Vital Signs Date Temp Pulse Resp B/P (MAP) Pulse Ox O2 O2 Flow FiO2 Time Delivery Rate 11/20/18 98.3 87 18 120/81 100 Room Air 08:09 (94) Intake and Output 11/19/18 11/19/18 11/20/18 1515:00 23:00 07:00 IntakeIntake Total 1810 ml OutputOutput Total 300 ml BalanceBalance 1510 ml Constitutional: alert, oriented Respiratory: clear to auscultation Cardiovascular: nl pulses Gastrointestinal: soft, tender Extremities: normal pulses 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: nl mental status Medications Medication Current Medications IV Flush (NS 3 ml) 3 ml PER PROTOCOL IV ; Start 11/16/18 at 23:00 Acetaminophen (Tylenol Tab) 650 mg Q6H PRN PO .PAIN 1-3 OR TEMP; Start 11/16/18 at 23:00 Enoxaparin Sodium (Lovenox) 30 mg DAILY SC Last administered on 11/20/18 08:10; Admin Dose 30 MG; Start 11/17/18 at 09:00 Ondansetron HCl (Zofran Inj) 4 mg Q4 PRN IV NAUSEA/VOMITING Last administered on 11/20/18 03:50; Admin Dose 4 MG; Start 11/17/18 at 02:00 Hydromorphone HCl (Dilaudid) 1 mg Q4H PRN IV SEVERE PAIN LEVEL 7-10 Last administered on 11/20/18 07:59; Admin Dose 1 MG; Start 11/17/18 at 02:00 Pantoprazole (Protonix Iv) 40 mg DAILY@06 IV Last administered on 11/20/18 05:33; Admin Dose 40 MG; Start 11/17/18 at 14:00 Nicotine (Nicoderm 14 Mg/ 24hr) 1 patch DAILY TRANSDERM Last administered on 11/20/18 08:06; Admin Dose 1 PATCH; Start 11/17/18 at 14:30 Metoclopramide HCl (Reglan) 10 mg Q6H PRN IV NAUSEA AND/OR VOMITING Last administered on 11/20/18 08:06; Admin Dose 10 MG; Start 11/17/18 at 13:00 Lorazepam (Ativan) 0.5 mg Q6H PRN PO ANXIETY Last administered on 11/20/18 10:41; Admin Dose 0.5 MG; Start 11/17/18 at 13:00 Potassium Chloride 40 meq/ Dextrose/Sodium Chloride 1,000 ml @ 70 mls/hr [id number] IV Last administered on 11/20/18 10:32; Admin Dose 70 MLS/HR; Start 11/17/18 at 14:30 BRADLEY STROUD Nov 20, 2018 10:46
--- NOTE | 2018-11-20 10:50 | CONS ---
Assessment/Plan Assessment/Plan Assessment/Plan (Daily) 1. Abd pain 2. Nausea 3. Transaminitis 4. Chronic pancreatitis 5. S/P ERCP, removal of the pigmented stone and placement of self-expanding metallic stent for biliary stricture 6. H/O GERD -PPI for GI prophylaxis 7. Anxiety -prn ativan 8. Nicotine dependence -on Nicotine patch 9. Cholangitis Plan Continue Cipro for 5 more days Consultation Date/Type/Reason Admit Date/Time Nov 16, 2018 at 22:26 Initial Consult Date Date/Time of Note DATE: 11/20/18 TIME: 10:49 24 HR Interval Summary Constitutional: improved Exam/Review of Systems Exam Vitals Vital Signs Date Temp Pulse Resp B/P (MAP) Pulse Ox O2 O2 Flow FiO2 Time Delivery Rate 11/20/18 98.3 87 18 120/81 100 Room Air 08:09 (94) Intake and Output 11/19/18 11/19/18 11/20/18 1414:59 22:59 06:59 IntakeIntake Total 1810 ml OutputOutput Total 300 ml BalanceBalance 1510 ml Constitutional: alert, oriented, well developed Psych: no complaints, nl mood/affect Head: normocephalic, atraumatic Eyes: nl conjunctiva, EOMI, nl lids, nl sclera, PERRL ENMT: nl external ears & nose, nl lips & teeth, nl nasal mucosa & septum Neck: supple, non-tender Respiratory: clear to auscultation, normal air movement Cardiovascular: regular rate and rhythm, nl pulses Gastrointestinal: soft, nl liver, spleen, non-tender Musculoskeletal: nl extremities to inspection, nl gait and stance Extremities: normal pulses 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, nl mental status, nl speech, nl strength Skin: nl turgor; No rash or lesions Lymph: nl lymph nodes Results Result Diagram: 11/17/18 0433 11/18/18 0519 Medications Medication Current Medications IV Flush (NS 3 ml) 3 ml PER PROTOCOL IV ; Start 11/16/18 at 23:00 Acetaminophen (Tylenol Tab) 650 mg Q6H PRN PO .PAIN 1-3 OR TEMP; Start 11/16/18 at 23:00 Enoxaparin Sodium (Lovenox) 30 mg DAILY SC Last administered on 11/20/18at 08:10; Admin Dose 30 MG; Start 11/17/18 at 09:00 Ondansetron HCl (Zofran Inj) 4 mg Q4 PRN IV NAUSEA/VOMITING Last administered on 11/20/18 03:50; Admin Dose 4 MG; Start 11/17/18 at 02:00 Hydromorphone HCl (Dilaudid) 1 mg Q4H PRN IV SEVERE PAIN LEVEL 7-10 Last administered on 11/20/18 07:59; Admin Dose 1 MG; Start 11/17/18 at 02:00 Pantoprazole (Protonix Iv) 40 mg DAILY@06 IV Last administered on 11/20/18 05:33; Admin Dose 40 MG; Start 11/17/18 at 14:00 Nicotine (Nicoderm 14 Mg/ 24hr) 1 patch DAILY TRANSDERM Last administered on 11/20/18 08:06; Admin Dose 1 PATCH; Start 11/17/18 at 14:30 Metoclopramide HCl (Reglan) 10 mg Q6H PRN IV NAUSEA AND/OR VOMITING Last administered on 11/20/18 08:06; Admin Dose 10 MG; Start 11/17/18 at 13:00 Lorazepam (Ativan) 0.5 mg Q6H PRN PO ANXIETY Last administered on 11/20/18 10:41; Admin Dose 0.5 MG; Start 11/17/18 at 13:00 Potassium Chloride 40 meq/ Dextrose/Sodium Chloride 1,000 ml @ 70 mls/hr [id number] IV Last administered on 11/20/18 10:32; Admin Dose 70 MLS/HR; Start 11/17/18 at 14:30 Ciprofloxacin/ Dextrose 200 ml @ 200 mls/hr Q12 IVPB ; Start 11/20/18 at 11:00 DAVONTE COFFEY MD Nov 20, 2018 10:50
[2018-11-20] MEDS: CIPROFLOXACIN 400MG/D5W 200 ML IVPB SCH ×2 (11:46→21:15)
[2018-11-20 14:49] VITALS: BP 121/100; PULSE 99; RESP 19
[2018-11-20] MEDS: HYDROCODONE/APAP (5/325) TAB PO PRN ×2 (17:49→22:16)
[2018-11-20 19:59] VITALS: BP 135/77; PULSE 91; RESP 18
[2018-11-21] MEDS: HYDROmorphONE 1 MG/ML SYG IV PRN ×6 (01:15→22:23)
[2018-11-21] MEDS: NACL IV SCH ×2 (01:15→20:41)
[2018-11-21] MEDS: POTASSIUM CHLORIDE IV SCH ×2 (01:15→20:41)
[2018-11-21] MEDS: DEXTROSE IV SCH ×2 (01:15→20:41)
[2018-11-21] MEDS: ONDANSETRON 4 MG INJ IV PRN ×2 (01:19→22:24)
[2018-11-21 01:28] VITALS: BP 109/55; PULSE 79; RESP 16
[2018-11-21] MEDS: PANTOPRAZOLE 40 MG INJ IV SCH (05:24)
[2018-11-21] MEDS: HYDROCODONE/APAP (5/325) TAB PO PRN ×4 (06:21→20:37)
[2018-11-21 07:50] VITALS: BP 147/74; PULSE 91; RESP 17
[2018-11-21] MEDS: NICOTINE (14 MG/24 HR) PATCH TRANSDERM SCH (08:22)
[2018-11-21] MEDS: CIPROFLOXACIN 400MG/D5W 200 ML IVPB SCH ×2 (08:23→20:38)
[2018-11-21] MEDS: LORAZEPAM 0.5 MG TAB PO PRN (08:23)
[2018-11-21] MEDS: ENOXAPARIN 30 MG/0.3 ML SYG SC SCH (08:27)
[2018-11-21] MEDS: METOCLOPRAMIDE 10 MG INJ IV PRN ×2 (09:16→15:20)
--- NOTE | 2018-11-21 11:40 | CONS ---
Assessment/Plan Assessment/Plan Assessment/Plan (Daily) Assessment/Plan Assessment/Plan (Daily) 1. Abd pain 2. Nausea 3. Transaminitis 4. Chronic pancreatitis 5. S/P ERCP, removal of the pigmented stone and placement of self-expanding metallic stent for biliary stricture 6. H/O GERD -PPI for GI prophylaxis 7. Anxiety -prn ativan 8. Nicotine dependence -on Nicotine patch 9. Cholangitis, all the left is coming down as expected Plan Continue Cipro for 5 more days We will do EUS as an outpatient Consultation Date/Type/Reason Admit Date/Time Nov 16, 2018 at 22:26 Initial Consult Date Date/Time of Note DATE: 11/21/18 TIME: 11:40 24 HR Interval Summary Constitutional: improved Exam/Review of Systems Exam Vitals Vital Signs Date Temp Pulse Resp B/P (MAP) Pulse Ox O2 O2 Flow FiO2 Time Delivery Rate 11/21/18 98.7 91 17 147/74 99 Room Air 07:50 (98) Intake and Output 11/20/18 11/20/18 11/21/18 1515:00 23:00 07:00 IntakeIntake Total 2720 ml 820 ml 1720 ml BalanceBalance 2720 ml 820 ml 1720 ml Constitutional: alert, oriented, well developed Psych: no complaints, nl mood/affect Head: normocephalic, atraumatic Eyes: nl conjunctiva, EOMI, nl lids, nl sclera, PERRL ENMT: nl external ears & nose, nl lips & teeth, nl nasal mucosa & septum Neck: supple, non-tender Respiratory: clear to auscultation, normal air movement Cardiovascular: regular rate and rhythm, nl pulses Gastrointestinal: soft, nl liver, spleen, non-tender Musculoskeletal: nl extremities to inspection, nl gait and stance Extremities: normal pulses 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, nl mental status, nl speech, nl strength Skin: nl turgor; No rash or lesions Lymph: nl lymph nodes Results Result Diagram: 11/21/1845611/21/18456 Results 24hrs Laboratory Tests Test 11/21/18 04:57 White Blood Count 7.3 Red Blood Count 4.17 L Hemoglobin 12.8 Hematocrit 39.2 Mean Corpuscular Volume 94.0 Mean Corpuscular Hemoglobin 30.7 Mean Corpuscular Hemoglobin Concent 32.7 Red Cell Distribution Width 13.3 Platelet Count 298 Mean Platelet Volume 11.2 H Immature Granulocytes % 0.500 H Neutrophils % Segmented Neutrophils % (Manual) 39 Lymphocytes % Lymphocytes % (Manual) 52 H Reactive Lymphocytes % (Manual) 1 H Monocytes % Monocytes % (Manual) 4 Eosinophils % Eosinophils % (Manual) 3 Basophils % Basophils % (Manual) 1 Nucleated Red Blood Cells % 0.0 Immature Granulocytes # 0.040 H Neutrophils # Lymphocytes (Manual) 3.7 H Lymphocytes # Reactive Lymphocytes # 0.0 Monocytes # Monocytes # (Manual) 0.2 L Eosinophils # Basophils # Basophils # (Manual) 0.0 Nucleated Red Blood Cells # Platelet Estimate NORMAL Sodium Level 140 Potassium Level 4.0 Chloride Level 103 Carbon Dioxide Level 26 Anion Gap 11 Blood Urea Nitrogen 4 L Creatinine 0.57 Est Glomerular Filtrat Rate mL/min > 60 Glucose Level 125 Calcium Level 10.1 Total Bilirubin 0.4 Direct Bilirubin 0.00 Indirect Bilirubin 0.4 Aspartate Amino Transf (AST/SGOT) 75 H Alanine Aminotransferase (ALT/SGPT) 192 H Alkaline Phosphatase 245 H Total Protein 7.6 Albumin 4.2 Globulin 3.40 H Albumin/Globulin Ratio 1.23 Medications Medication Current Medications IV Flush (NS 3 ml) 3 ml PER PROTOCOL IV ; Start 11/16/18 at 23:00 Acetaminophen (Tylenol Tab) 650 mg Q6H PRN PO .PAIN 1-3 OR TEMP; Start 11/16/18 at 23:00 Enoxaparin Sodium (Lovenox) 30 mg DAILY SC Last administered on 11/21/18at 08:27; Admin Dose 30 MG; Start 11/17/18 at 09:00 Ondansetron HCl (Zofran Inj) 4 mg Q4 PRN IV NAUSEA/VOMITING Last administered on 11/21/18at 01:19; Admin Dose 4 MG; Start 11/17/18 at 02:00 Hydromorphone HCl (Dilaudid) 1 mg Q4H PRN IV SEVERE PAIN LEVEL 7-10 Last administered on 11/21/18at 09:16; Admin Dose 1 MG; Start 11/17/18 at 02:00 Pantoprazole (Protonix Iv) 40 mg DAILY@06 IV Last administered on 11/21/18at 05:24; Admin Dose 40 MG; Start 11/17/18 at 14:00 Nicotine (Nicoderm 14 Mg/ 24hr) 1 patch DAILY TRANSDERM Last administered on 11/21/18 08:22; Admin Dose 1 PATCH; Start 11/17/18 at 14:30 Metoclopramide HCl (Reglan) 10 mg Q6H PRN IV NAUSEA AND/OR VOMITING Last administered on 11/21/18 09:16; Admin Dose 10 MG; Start 11/17/18 at 13:00 Lorazepam (Ativan) 0.5 mg Q6H PRN PO ANXIETY Last administered on 11/21/18 08:23; Admin Dose 0.5 MG; Start 11/17/18 at 13:00 Potassium Chloride 40 meq/ Dextrose/Sodium Chloride 1,000 ml @ 70 mls/hr Q14H18 M IV Last administered on 11/21/18 01:15; Admin Dose 70 MLS/HR; Start 11/17/18 at 14:30 Ciprofloxacin/ Dextrose 200 ml @ 200 mls/hr Q12 IVPB Last administered on 11/21/18 08:23; Admin Dose 200 MLS/HR; Start 11/20/18 at 11:00 Acetaminophen/ Hydrocodone Bitart ([place] (5/325)) 1 tab Q4H PRN PO MODERATE PAIN LEVEL 4-6 Last administered on 11/21/18 11:27; Admin Dose 1 TAB; Start 11/20/18 at 14:00 DAVONTE COFFEY MD Nov 21, 2018 11:40
[2018-11-21 13:33] VITALS: BP 137/79; PULSE 88; RESP 17
--- NOTE | 2018-11-21 13:41 | PN ---
Date/Time of Note Date/Time of Note DATE: 11/21/18 TIME: 13:40 Assessment/Plan VTE Prophylaxis Risk score (from Ns)>0 risk: 1 SCD applied (from Ns): No SCD contraindicated: other Pharmacological prophylaxis: LMWH Lines/Catheters IV Catheter Type (from [facility]): Peripheral IV Assessment/Plan Hospital Course -S/P ERCP, removal of the pigmented stone and placement of self-expanding metal lic stent for biliary stricture on 11/19/18. -Abdominal pain, nausea and vomiting. Keep patient n.p.o. Dilaudid as needed for pain and Zofran as needed for nausea. Dr. Samuels is following in gastroe nterology consultation. -Transaminitis -Status post ERCP, sphincterotomy and stent placement. Status post ERCP, removal of the biliary stent, removal of sludge by Dr. Samuels on 06/18/2018. -History of GERD, continue Protonix. -Anxiety, continue Ativan as needed -Tobacco dependence, cessation is strongly advised, continue nicotine patch. -History of chronic pancreatitis Result Diagram: 11/21/18 0457 11/21/18 0457 Results 24hrs Laboratory Tests Test 11/21/18 04:57 White Blood Count 7.3 Red Blood Count 4.17 L Hemoglobin 12.8 Hematocrit 39.2 Mean Corpuscular Volume 94.0 Mean Corpuscular Hemoglobin 30.7 Mean Corpuscular Hemoglobin Concent 32.7 Red Cell Distribution Width 13.3 Platelet Count 298 Mean Platelet Volume 11.2 H Immature Granulocytes % 0.500 H Neutrophils % Segmented Neutrophils % (Manual) 39 Lymphocytes % Lymphocytes % (Manual) 52 H Reactive Lymphocytes % (Manual) 1 H Monocytes % Monocytes % (Manual) 4 Eosinophils % Eosinophils % (Manual) 3 Basophils % Basophils % (Manual) 1 Nucleated Red Blood Cells % 0.0 Immature Granulocytes # 0.040 H Neutrophils # Lymphocytes (Manual) 3.7 H Lymphocytes # Reactive Lymphocytes # 0.0 Monocytes # Monocytes # (Manual) 0.2 L Eosinophils # Basophils # Basophils # (Manual) 0.0 Nucleated Red Blood Cells # Platelet Estimate NORMAL Sodium Level 140 Potassium Level 4.0 Chloride Level 103 Carbon Dioxide Level 26 Anion Gap 11 Blood Urea Nitrogen 4 L Creatinine 0.57 Est Glomerular Filtrat Rate mL/min > 60 Glucose Level 125 Calcium Level 10.1 Total Bilirubin 0.4 Direct Bilirubin 0.00 Indirect Bilirubin 0.4 Aspartate Amino Transf (AST/SGOT) 75 H Alanine Aminotransferase (ALT/SGPT) 192 H Alkaline Phosphatase 245 H Total Protein 7.6 Albumin 4.2 Globulin 3.40 H Albumin/Globulin Ratio 1.23 Subjective 24 Hr Interval Summary Free Text/Dictation Abdominal pain still persists Exam/Review of Systems Exam Vitals Vital Signs Date Temp Pulse Resp B/P (MAP) Pulse Ox O2 O2 Flow FiO2 Time Delivery Rate 11/21/18 98.7 91 17 147/74 99 Room Air 07:50 (98) Intake and Output 11/20/18 11/20/18 11/21/18 1515:00 23:00 07:00 IntakeIntake Total 2720 ml 820 ml 1720 ml BalanceBalance 2720 ml 820 ml 1720 ml Constitutional: well developed Head: normocephalic, atraumatic Neck: supple Respiratory: clear to auscultation Cardiovascular: regular rate and rhythm Gastrointestinal: soft, tender Extremities: normal pulses Results Results 24hrs Laboratory Tests Test 11/21/18 04:57 White Blood Count 7.3 Red Blood Count 4.17 L Hemoglobin 12.8 Hematocrit 39.2 Mean Corpuscular Volume 94.0 Mean Corpuscular Hemoglobin 30.7 Mean Corpuscular Hemoglobin Concent 32.7 Red Cell Distribution Width 13.3 Platelet Count 298 Mean Platelet Volume 11.2 H Immature Granulocytes % 0.500 H Neutrophils % Segmented Neutrophils % (Manual) 39 Lymphocytes % Lymphocytes % (Manual) 52 H Reactive Lymphocytes % (Manual) 1 H Monocytes % Monocytes % (Manual) 4 Eosinophils % Eosinophils % (Manual) 3 Basophils % Basophils % (Manual) 1 Nucleated Red Blood Cells % 0.0 Immature Granulocytes # 0.040 H Neutrophils # Lymphocytes (Manual) 3.7 H Lymphocytes # Reactive Lymphocytes # 0.0 Monocytes # Monocytes # (Manual) 0.2 L Eosinophils # Basophils # Basophils # (Manual) 0.0 Nucleated Red Blood Cells # Platelet Estimate NORMAL Sodium Level 140 Potassium Level 4.0 Chloride Level 103 Carbon Dioxide Level 26 Anion Gap 11 Blood Urea Nitrogen 4 L Creatinine 0.57 Est Glomerular Filtrat Rate mL/min > 60 Glucose Level 125 Calcium Level 10.1 Total Bilirubin 0.4 Direct Bilirubin 0.00 Indirect Bilirubin 0.4 Aspartate Amino Transf (AST/SGOT) 75 H Alanine Aminotransferase (ALT/SGPT) 192 H Alkaline Phosphatase 245 H Total Protein 7.6 Albumin 4.2 Globulin 3.40 H Albumin/Globulin Ratio 1.23 Medications Medication Current Medications IV Flush (NS 3 ml) 3 ml PER PROTOCOL IV ; Start 11/16/18 at 23:00 Acetaminophen (Tylenol Tab) 650 mg Q6H PRN PO .PAIN 1-3 OR TEMP; Start 11/16/18 at 23:00 Enoxaparin Sodium (Lovenox) 30 mg DAILY SC Last administered on 11/21/18 08:27; Admin Dose 30 MG; Start 11/17/18 at 09:00 Ondansetron HCl (Zofran Inj) 4 mg Q4 PRN IV NAUSEA/VOMITING Last administered on 11/21/18 01:19; Admin Dose 4 MG; Start 11/17/18 at 02:00 Hydromorphone HCl (Dilaudid) 1 mg Q4H PRN IV SEVERE PAIN LEVEL 7-10 Last administered on 11/21/18 13:33; Admin Dose 1 MG; Start 11/17/18 at 02:00 Pantoprazole (Protonix Iv) 40 mg DAILY@06 IV Last administered on 11/21/18 05:24; Admin Dose 40 MG; Start 11/17/18 at 14:00 Nicotine (Nicoderm 14 Mg/ 24hr) 1 patch DAILY TRANSDERM Last administered on 11/21/18 08:22; Admin Dose 1 PATCH; Start 11/17/18 at 14:30 Metoclopramide HCl (Reglan) 10 mg Q6H PRN IV NAUSEA AND/OR VOMITING Last administered on 11/21/18 09:16; Admin Dose 10 MG; Start 11/17/18 at 13:00 Lorazepam (Ativan) 0.5 mg Q6H PRN PO ANXIETY Last administered on 11/21/18 08:23; Admin Dose 0.5 MG; Start 11/17/18 at 13:00 Potassium Chloride 40 meq/ Dextrose/Sodium Chloride 1,000 ml @ 70 mls/hr [id number] IV Last administered on 11/21/18 01:15; Admin Dose 70 MLS/HR; Start 11/17/18 at 14:30 Ciprofloxacin/ Dextrose 200 ml @ 200 mls/hr Q12 IVPB Last administered on 11/21/18 08:23; Admin Dose 200 MLS/HR; Start 11/20/18 at 11:00 Acetaminophen/ Hydrocodone Bitart ([place] (5/325)) 1 tab Q4H PRN PO MODERATE PAIN LEVEL 4-6 Last administered on 11/21/18at 11:27; Admin Dose 1 TAB; Start 11/20/18 at 14:00 GERDA VALENCIA Nov 21, 2018 13:41
[2018-11-21 19:49] VITALS: BP 154/82; PULSE 82; RESP 18
[2018-11-22] MEDS: HYDROCODONE/APAP (5/325) TAB PO PRN ×4 (00:59→20:51)
[2018-11-22 01:37] VITALS: BP 137/75; PULSE 87; RESP 20
[2018-11-22] MEDS: HYDROmorphONE 1 MG/ML SYG IV PRN ×5 (03:19→23:03)
[2018-11-22] MEDS: PANTOPRAZOLE 40 MG INJ IV SCH (05:47)
[2018-11-22 07:38] VITALS: BP 123/65; PULSE 82; RESP 16
[2018-11-22] MEDS: NACL IV SCH ×2 (08:54→15:41)
[2018-11-22] MEDS: POTASSIUM CHLORIDE IV SCH ×2 (08:54→15:41)
[2018-11-22] MEDS: DEXTROSE IV SCH ×2 (08:54→15:41)
[2018-11-22] MEDS: NICOTINE (14 MG/24 HR) PATCH TRANSDERM SCH (09:04)
[2018-11-22] MEDS: ONDANSETRON 4 MG INJ IV PRN ×3 (09:04→23:03)
[2018-11-22] MEDS: CIPROFLOXACIN 400MG/D5W 200 ML IVPB SCH ×2 (09:05→20:51)
[2018-11-22] MEDS: ENOXAPARIN 30 MG/0.3 ML SYG SC SCH (09:08)
[2018-11-22] MEDS: LORAZEPAM 0.5 MG TAB PO PRN (10:41)
--- NOTE | 2018-11-22 13:51 | PN ---
Date/Time of Note Date/Time of Note DATE: 11/22/18 TIME: 13:50 Assessment/Plan VTE Prophylaxis Risk score (from Nsg)>0 risk: 1 SCD applied (from Nsg): Yes Pharmacological prophylaxis: LMWH Lines/Catheters IV Catheter Type (from Nrsg): Peripheral IV Assessment/Plan Hospital Course -S/P ERCP, removal of the pigmented stone and placement of self-expanding metallic stent for biliary stricture on 11/19/18. -Abdominal pain, nausea and vomiting. Keep patient n.p.o. Dilaudid as needed for pain and Zofran as needed for nausea. Dr. Samuels is following in gastroenterology consultation. -Transaminitis -Status post ERCP, sphincterotomy and stent placement. Status post ERCP, removal of the biliary stent, removal of sludge by Dr. Samuels on 06/18/2018. -History of GERD, continue Protonix. -Anxiety, continue Ativan as needed -Tobacco dependence, cessation is strongly advised, continue nicotine patch. -History of chronic pancreatitis Result Diagram: 11/21/18 0457 11/21/18 0457 Subjective 24 Hr Interval Summary Free Text/Dictation Patient still have abdominal pain Exam/Review of Systems Exam Vitals Vital Signs Date Temp Pulse Resp B/P (MAP) Pulse Ox O2 O2 Flow FiO2 Time Delivery Rate 11/22/18 98.2 82 16 123/65 98 Room Air 07:38 (84) Intake and Output 11/21/18 11/21/18 11/22/18 1515:00 23:00 07:00 IntakeIntake Total 1380 ml 780 ml 466 ml BalanceBalance 1380 ml 780 ml 466 ml Constitutional: well developed Head: normocephalic, atraumatic Neck: supple Respiratory: diminished breath sounds Cardiovascular: regular rate and rhythm Gastrointestinal: soft, non-tender Extremities: normal pulses Medications Medication Current Medications IV Flush (NS 3 ml) 3 ml PER PROTOCOL IV ; Start 11/16/18 at 23:00 Acetaminophen (Tylenol Tab) 650 mg Q6H PRN PO .PAIN 1-3 OR TEMP; Start 11/16/18 at 23:00 Enoxaparin Sodium (Lovenox) 30 mg DAILY SC Last administered on 11/22/18at 09:08; Admin Dose 30 MG; Start 11/17/18 at 09:00 Ondansetron HCl (Zofran Inj) 4 mg Q4 PRN IV NAUSEA/VOMITING Last administered on 11/22/18 09:04; Admin Dose 4 MG; Start 11/17/18 at 02:00 Hydromorphone HCl (Dilaudid) 1 mg Q4H PRN IV SEVERE PAIN LEVEL 7-10 Last administered on 11/22/18 13:11; Admin Dose 1 MG; Start 11/17/18 at 02:00 Pantoprazole (Protonix Iv) 40 mg DAILY@06 IV Last administered on 11/22/18 05:47; Admin Dose 40 MG; Start 11/17/18 at 14:00 Nicotine (Nicoderm 14 Mg/ 24hr) 1 patch DAILY TRANSDERM Last administered on 11/22/18 09:04; Admin Dose 1 PATCH; Start 11/17/18 at 14:30 Metoclopramide HCl (Reglan) 10 mg Q6H PRN IV NAUSEA AND/OR VOMITING Last administered on 11/21/18 15:20; Admin Dose 10 MG; Start 11/17/18 at 13:00 Lorazepam (Ativan) 0.5 mg Q6H PRN PO ANXIETY Last administered on 11/22/18 10:41; Admin Dose 0.5 MG; Start 11/17/18 at 13:00 Potassium Chloride 40 meq/ Dextrose/Sodium Chloride 1,000 ml @ 70 mls/hr [id number] IV Last administered on 11/21/18 20:41; Admin Dose 70 MLS/HR; Start 11/17/18 at 14:30 Ciprofloxacin/ Dextrose 200 ml @ 200 mls/hr Q12 IVPB Last administered on 11/22/18 09:05; Admin Dose 200 MLS/HR; Start 11/20/18 at 11:00 Acetaminophen/ Hydrocodone Bitart ([place] (5/325)) 1 tab Q4H PRN PO MODERATE PAIN LEVEL 4-6 Last administered on 11/22/18 05:49; Admin Dose 1 TAB; Start 11/20/18 at 14:00 GERDA VALENCIA Nov 22, 2018 13:51
[2018-11-22 14:35] VITALS: BP 142/104; PULSE 93; RESP 17
--- NOTE | 2018-11-22 17:44 | CONS ---
Assessment/Plan Assessment/Plan Assessment/Plan (Daily) Consultation Assessment/Plan Assessment/Plan Assessment/Plan (Daily) Assessment/Plan Assessment/Plan (Daily) 1. Abd pain 2. Nausea 3. Transaminitis 4. Chronic pancreatitis 5. S/P ERCP, removal of the pigmented stone and placement of self-expanding metallic stent for biliary stricture 6. H/O GERD -PPI for GI prophylaxis 7. Anxiety -prn ativan 8. Nicotine dependence -on Nicotine patch 9. Cholangitis, all the left is coming down as expected Plan Continue Cipro for 5 more days We will do EUS as an outpatient Creon on a regular basis Low-fat diet Reduce narcotics Consultation Date/Type/Reason Admit Date/Time Nov 16, 2018 at 22:26 Initial Consult Date Date/Time of Note DATE: 11/22/18 TIME: 17:44 24 HR Interval Summary Free Text/Dictation Complaints of abdominal pain Constitutional: improved Exam/Review of Systems Exam Vitals Vital Signs Date Temp Pulse Resp B/P (MAP) Pulse Ox O2 O2 Flow FiO2 Time Delivery Rate 11/22/18 98.0 93 17 142/104 100 Room Air 14:35 (117) Intake and Output 11/21/18 11/21/18 11/22/18 1515:00 23:00 07:00 IntakeIntake Total 1380 ml 780 ml 466 ml BalanceBalance 1380 ml 780 ml 466 ml Constitutional: alert, oriented, well developed Psych: no complaints, nl mood/affect Head: normocephalic, atraumatic Eyes: nl conjunctiva, EOMI, nl lids, nl sclera, PERRL ENMT: nl external ears & nose, nl lips & teeth, nl nasal mucosa & septum Neck: supple, non-tender Respiratory: clear to auscultation, normal air movement Cardiovascular: regular rate and rhythm, nl pulses Gastrointestinal: soft, nl liver, spleen, non-tender Musculoskeletal: nl extremities to inspection, nl gait and stance Extremities: normal pulses 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: CELLAR HAND II-XII intact, nl mental status, nl speech, nl strength Skin: nl turgor; No rash or lesions Lymph: nl lymph nodes Results Result Diagram: 11/21/18 0457 11/21/18 0457 Medications Medication Current Medications IV Flush (NS 3 ml) 3 ml PER PROTOCOL IV ; Start 11/16/18 at 23:00 Acetaminophen (Tylenol Tab) 650 mg Q6H PRN PO .PAIN 1-3 OR TEMP; Start 11/16/18 at 23:00 Enoxaparin Sodium (Lovenox) 30 mg DAILY SC Last administered on 11/22/18 09:08; Admin Dose 30 MG; Start 11/17/18 at 09:00 Ondansetron HCl (Zofran Inj) 4 mg Q4 PRN IV NAUSEA/VOMITING Last administered on 11/22/18 09:04; Admin Dose 4 MG; Start 11/17/18 at 02:00 Hydromorphone HCl (Dilaudid) 1 mg Q4H PRN IV SEVERE PAIN LEVEL 7-10 Last administered on 11/22/18 13:11; Admin Dose 1 MG; Start 11/17/18 at 02:00 Pantoprazole (Protonix Iv) 40 mg DAILY@06 IV Last administered on 11/22/18 0 5:47; Admin Dose 40 MG; Start 11/17/18 at 14:00 Nicotine (Nicoderm 14 Mg/ 24hr) 1 patch DAILY TRANSDERM Last administered on 11/22/18 09:04; Admin Dose 1 PATCH; Start 11/17/18 at 14:30 Metoclopramide HCl (Reglan) 10 mg Q6H PRN IV NAUSEA AND/OR VOMITING Last administered on 11/21/18 15:20; Admin Dose 10 MG; Start 11/17/18 at 13:00 Lorazepam (Ativan) 0.5 mg Q6H PRN PO ANXIETY Last administered on 11/22/18 10:41; Admin Dose 0.5 MG; Start 11/17/18 at 13:00 Potassium Chloride 40 meq/ Dextrose/Sodium Chloride 1,000 ml @ 70 mls/hr [id number] IV Last administered on 11/22/18 15:41; Admin Dose 70 MLS/HR; Start 11/17/18 at 14:30 Ciprofloxacin/ Dextrose 200 ml @ 200 mls/hr Q12 IVPB Last administered on 11/22/18 09:05; Admin Dose 200 MLS/HR; Start 11/20/18 at 11:00 Acetaminophen/ Hydrocodone Bitart ([place] (5/325)) 1 tab Q4H PRN PO MODERATE PAIN LEVEL 4-6 Last administered on 11/22/18 15:25; Admin Dose 1 TAB; Start 11/20/18 at 14:00 DAVONTE COFFEY MD Nov 22, 2018 17:44
[2018-11-22 20:04] VITALS: BP 149/90; PULSE 95; RESP 18
[2018-11-22] MEDS: CREON (24K-76K-120K) 1 CAP PO SCH (21:21)
[2018-11-23 01:25] VITALS: BP 121/91; PULSE 75; RESP 18
[2018-11-23] MEDS: HYDROCODONE/APAP (5/325) TAB PO PRN ×2 (01:48→17:39)
[2018-11-23] MEDS: PANTOPRAZOLE 40 MG INJ IV SCH (06:29)
[2018-11-23] MEDS: HYDROmorphONE 1 MG/ML SYG IV PRN ×4 (06:29→21:01)
[2018-11-23] MEDS: POTASSIUM CHLORIDE IV SCH (06:30)
[2018-11-23] MEDS: DEXTROSE IV SCH (06:30)
[2018-11-23] MEDS: NACL IV SCH (06:30)
[2018-11-23 07:25] VITALS: BP 130/82; PULSE 84; RESP 16
[2018-11-23] MEDS: NICOTINE (14 MG/24 HR) PATCH TRANSDERM SCH (08:03)
[2018-11-23] MEDS: CIPROFLOXACIN 400MG/D5W 200 ML IVPB SCH ×2 (08:04→21:01)
[2018-11-23] MEDS: CREON (24K-76K-120K) 1 CAP PO SCH ×3 (08:04→17:28)
[2018-11-23] MEDS: ONDANSETRON 4 MG INJ IV PRN ×3 (08:04→21:01)
[2018-11-23] MEDS: ENOXAPARIN 30 MG/0.3 ML SYG SC SCH (08:08)
[2018-11-23] MEDS: LORAZEPAM 0.5 MG TAB PO PRN ×2 (08:11→23:43)
--- NOTE | 2018-11-23 08:39 | CONS ---
Assessment/Plan Assessment/Plan Hospital Course (Demo Recall) 48yo female with h/o chronic pancreatitis presents with abd pain and nausea Interval hx: pt continues to have abdominal pain but improved. She is still nauseous but able to hold down food. 1. Abd pain 2. Nausea 3. Transaminitis 4. Chronic pancreatitis 5. S/P ERCP-11/19/2018 - sphincterotomy with removal of stent in , 6. H/O GERD -PPI for GI prophylaxis 7. Anxiety -prn ativan 8. Nicotine dependence -on Nicotine patch 9. Cholangitis -s/p ERCP with metallic stent placement, there were pigmented stones noted and not all were cleared. Plan: LFT now Low fat diet, education provided [facility] Outpatient EUS with Dr Samuels. Discussed with pt. Will need stent removed in 3 months Pain management and prn anti emetics Continue abx Pt examined and POC discussed with Dr. Samuels Consultation Date/Type/Reason Admit Date/Time Nov 16, 2018 at 22:26 Initial Consult Date Date/Time of Note DATE: 11/23/18 TIME: 08:35 Exam/Review of Systems Exam Vitals Vital Signs Date Temp Pulse Resp B/P (MAP) Pulse Ox O2 O2 Flow FiO2 Time Delivery Rate 11/23/18 98.1 84 16 130/82 98 07:25 (98) 11/22/18 Room Air 14:35 Intake and Output 11/22/18 11/22/18 11/23/18 1414:59 22:59 06:59 IntakeIntake Total 1674 ml 460 ml BalanceBalance 1674 ml 460 ml Constitutional: alert, oriented Psych: no complaints Head: normocephalic Eyes: nl sclera, PERRL Respiratory: clear to auscultation Cardiovascular: regular rate and rhythm Gastrointestinal: soft, bowel sounds, tender Musculoskeletal: nl extremities to inspection, nl gait and stance 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: nl mental status Results Result Diagram: 11/21/18 0457 11/21/18456 Medications Medication Current Medications IV Flush (NS 3 ml) 3 ml PER PROTOCOL IV ; Start 11/16/18 at 23:00 Acetaminophen (Tylenol Tab) 650 mg Q6H PRN PO .PAIN 1-3 OR TEMP; Start 11/16/18 at 23:00 Enoxaparin Sodium (Lovenox) 30 mg DAILY SC Last administered on 11/23/18 08:08; Admin Dose 30 MG; Start 11/17/18 at 09:00 Ondansetron HCl (Zofran Inj) 4 mg Q4 PRN IV NAUSEA/VOMITING Last administered on 11/23/18 08:04; Admin Dose 4 MG; Start 11/17/18 at 02:00 Hydromorphone HCl (Dilaudid) 1 mg Q4H PRN IV SEVERE PAIN LEVEL 7-10 Last administered on 11/23/18 06:29; Admin Dose 1 MG; Start 11/17/18 at 02:00 Pantoprazole (Protonix Iv) 40 mg DAILY@06 IV Last administered on 11/23/18 06:29; Admin Dose 40 MG; Start 11/17/18 at 14:00 Nicotine (Nicoderm 14 Mg/ 24hr) 1 patch DAILY TRANSDERM Last administered on 11/23/18 08:03; Admin Dose 1 PATCH; Start 11/17/18 at 14:30 Metoclopramide HCl (Reglan) 10 mg Q6H PRN IV NAUSEA AND/OR VOMITING Last administered on 11/21/18 15:20; Admin Dose 10 MG; Start 11/17/18 at 13:00 Lorazepam (Ativan) 0.5 mg Q6H PRN PO ANXIETY Last administered on 11/23/18 08:11; Admin Dose 0.5 MG; Start 11/17/18 at 13:00 Potassium Chloride 40 meq/ Dextrose/Sodium Chloride 1,000 ml @ 70 mls/hr [id number] IV Last administered on 11/23/18 06:30; Admin Dose 70 MLS/HR; Start 11/17/18 at 14:30 Ciprofloxacin/ Dextrose 200 ml @ 200 mls/hr Q12 IVPB Last administered on 11/23/18 08:04; Admin Dose 200 MLS/HR; Start 11/20/18 at 11:00 Acetaminophen/ Hydrocodone Bitart ([place] (5/325)) 1 tab Q4H PRN PO MODERATE PAIN LEVEL 4-6 Last administered on 11/23/18 01:48; Admin Dose 1 TAB; Start at 14:00 Amylase/Lipase/ Protease (Creon ([id number])) 1 cap WITH MEALS PO Last administered on 4/22/19at 08:04; Admin Dose 1 CAP; Start 11/22/18 at 21:00 [place] SURESH Nov 23, 2018 08:39
[2018-11-23 13:50] VITALS: BP 145/85; PULSE 94; RESP 16
--- NOTE | 2018-11-23 14:36 | PN ---
Date/Time of Note Date/Time of Note DATE: 11/23/18 TIME: 14:36 Assessment/Plan VTE Prophylaxis Risk score (from Ns)>0 risk: 1 SCD applied (from Ns): No SCD contraindicated: other Pharmacological prophylaxis: LMWH Lines/Catheters IV [facility]from [facility] Peripheral IV Assessment/Plan Hospital Course -S/P ERCP, removal of the pigmented stone and placement of self-expanding metal lic stent for biliary stricture on 11/19/18. -Abdominal pain, nausea and vomiting. Keep patient n.p.o. Dilaudid as needed for pain and Zofran as needed for nausea. Dr. Samuels is following in gastroe nterology consultation. -Transaminitis -Status post ERCP, sphincterotomy and stent placement. Status post ERCP, removal of the biliary stent, removal of sludge by Dr. Samuels on 06/18/2018. -History of GERD, continue Protonix. -Anxiety, continue Ativan as needed -Tobacco dependence, cessation is strongly advised, continue nicotine patch. -History of chronic pancreatitis Result Diagram: 11/21/18 0457 11/21/18 0457 Results 24hrs Laboratory Tests Test 11/23/18 09:14 Total Bilirubin 0.3 Direct Bilirubin 0.00 Indirect Bilirubin 0.3 Aspartate Amino Transf (AST/SGOT) 38 Alanine Aminotransferase (ALT/SGPT) 115 H Alkaline Phosphatase 208 H Total Protein 8.2 H Albumin 4.4 Subjective 24 Hr Interval Summary Free Text/Dictation Patient still having abdominal pain Exam/Review of Systems Exam Vitals Vital Signs Date Temp Pulse Resp B/P (MAP) Pulse Ox O2 O2 Flow FiO2 Time Delivery Rate 11/23/18 98.5 94 16 145/85 100 13:50 (105) 11/22/18 Room Air 14:35 Intake and Output 11/22/18 11/22/18 11/23/18 1515:00 23:00 07:00 IntakeIntake Total 1674 ml 460 ml BalanceBalance 1674 ml 460 ml Constitutional: well developed Head: normocephalic, atraumatic Neck: supple Respiratory: clear to auscultation Cardiovascular: regular rate and rhythm Gastrointestinal: soft, non-tender Extremities: normal pulses Results Results 24hrs Laboratory Tests Test 11/23/18 09:14 Total Bilirubin 0.3 Direct Bilirubin 0.00 Indirect Bilirubin 0.3 Aspartate Amino Transf (AST/SGOT) 38 Alanine Aminotransferase (ALT/SGPT) 115 H Alkaline Phosphatase 208 H Total Protein 8.2 H Albumin 4.4 Medications Medication Current Medications IV Flush (NS 3 ml) 3 ml PER PROTOCOL IV ; Start 11/16/18 at 23:00 Acetaminophen (Tylenol Tab) 650 mg Q6H PRN PO .PAIN 1-3 OR TEMP; Start 11/16/18 at 23:00 Enoxaparin Sodium (Lovenox) 30 mg DAILY SC Last administered on 11/23/18 08:08; Admin Dose 30 MG; Start 11/17/18 at 09:00 Ondansetron HCl (Zofran Inj) 4 mg Q4 PRN IV NAUSEA/VOMITING Last administered on 11/23/18 08:04; Admin Dose 4 MG; Start 11/17/18 at 02:00 Hydromorphone HCl (Dilaudid) 1 mg Q4H PRN IV SEVERE PAIN LEVEL 7-10 Last administered on 11/23/18 10:51; Admin Dose 1 MG; Start 11/17/18 at 02:00 Pantoprazole (Protonix Iv) 40 mg DAILY@06 IV Last administered on 11/23/18 06:29; Admin Dose 40 MG; Start 11/17/18 at 14:00 Nicotine (Nicoderm 14 Mg/ 24hr) 1 patch DAILY TRANSDERM Last administered on 11/23/18 08:03; Admin Dose 1 PATCH; Start 11/17/18 at 14:30 Metoclopramide HCl (Reglan) 10 mg Q6H PRN IV NAUSEA AND/OR VOMITING Last administered on 11/21/18 15:20; Admin Dose 10 MG; Start 11/17/18 at 13:00 Lorazepam (Ativan) 0.5 mg Q6H PRN PO ANXIETY Last administered on 11/23/18 08 :11; Admin Dose 0.5 MG; Start 11/17/18 at 13:00 Potassium Chloride 40 meq/ Dextrose/Sodium Chloride 1,000 ml @ 70 mls/hr [id number] IV Last administered on 11/23/18 06:30; Admin Dose 70 MLS/HR; Start 11/17/18 at 14:30 Ciprofloxacin/ Dextrose 200 ml @ 200 mls/hr Q12 IVPB Last administered on 11/23/18 08:04; Admin Dose 200 MLS/HR; Start 11/20/18 at 11:00 Acetaminophen/ Hydrocodone Bitart ([place] (5/325)) 1 tab Q4H PRN PO MODERATE PAIN LEVEL 4-6 Last administered on 11/23/18 01:48; Admin Dose 1 TAB; Start 11/20/18 at 14:00 Amylase/Lipase/ Protease (Creon (11x-[id number])) 1 cap WITH MEALS PO Last administered on 11/23/18 12:23; Admin Dose 1 CAP; Start 11/22/18 at 21:00 GERDA VALENCIA Nov 23, 2018 14:36
[2018-11-23 20:00] VITALS: BP 140/69; PULSE 78; RESP 17
[2018-11-24] MEDS: DEXTROSE IV SCH ×2 (01:26→16:03)
[2018-11-24] MEDS: POTASSIUM CHLORIDE IV SCH ×2 (01:26→16:03)
[2018-11-24] MEDS: NACL IV SCH ×2 (01:26→16:03)
[2018-11-24] MEDS: HYDROCODONE/APAP (5/325) TAB PO PRN ×4 (01:40→23:29)
[2018-11-24 02:00] VITALS: BP 106/61; PULSE 88; RESP 17
[2018-11-24] MEDS: PANTOPRAZOLE 40 MG INJ IV SCH (05:39)
[2018-11-24] MEDS: HYDROmorphONE 1 MG/ML SYG IV PRN ×3 (06:39→21:38)
[2018-11-24] MEDS: ONDANSETRON 4 MG INJ IV PRN ×3 (06:44→21:37)
[2018-11-24 07:41] VITALS: BP 104/79; PULSE 90; RESP 16
[2018-11-24] MEDS: CREON (24K-76K-120K) 1 CAP PO SCH ×3 (07:54→17:50)
[2018-11-24] MEDS: NICOTINE (14 MG/24 HR) PATCH TRANSDERM SCH (08:00)
[2018-11-24] MEDS: CIPROFLOXACIN 400MG/D5W 200 ML IVPB SCH ×2 (08:00→21:37)
[2018-11-24] MEDS: ENOXAPARIN 30 MG/0.3 ML SYG SC SCH (08:01)
[2018-11-24] MEDS: LORAZEPAM 0.5 MG TAB PO PRN (08:12)
--- NOTE | 2018-11-24 08:38 | CONS ---
Assessment/Plan Assessment/Plan Hospital Course (Demo Recall) 48yo female with h/o chronic pancreatitis presents with abd pain and nausea 1. Abd pain -improved 2. Nausea -improved 3. Transaminitis -improved 4. Chronic pancreatitis 5. S/P ERCP-11/19/2018 - sphincterotomy with removal of stent in , 6. H/O GERD -PPI for GI prophylaxis 7. Anxiety -prn ativan 8. Nicotine dependence -on Nicotine patch 9. Cholangitis -s/p ERCP with metallic stent placement, there were pigmented stones noted and not all were cleared. Plan: Low fat diet, education provided [facility] Outpatient EUS with Dr Samuels. Discussed with pt. Will need stent removed in 3 months Pain management and prn anti emetics Continue abx Pt examined and POC discussed with Dr. Samuels Consultation Date/Type/Reason Admit Date/Time Nov 16, 2018 at 22:26 Initial Consult Date Date/Time of Note DATE: 11/24/18 TIME: 08:37 24 HR Interval Summary Free Text/Dictation Continues to have RUQ pain, nausea. BM this am. Tolerating PO diet. Exam/Review of Systems Exam Vitals Vital Signs Date Temp Pulse Resp B/P (MAP) Pulse Ox O2 O2 Flow FiO2 Time Delivery Rate 11/24/18 98.2 90 16 104/79 98 07:41 (87) 11/22/18 Room Air 14:35 Intake and Output 11/23/18 11/23/18 11/24/18 1515:00 23:00 07:00 IntakeIntake Total 1360 ml 1450 ml 580 ml BalanceBalance 1360 ml 1450 ml 580 ml Constitutional: alert, oriented Psych: depression Head: normocephalic Eyes: PERRL ENMT: mucosa pink and moist Respiratory: clear to auscultation Cardiovascular: regular rate and rhythm Gastrointestinal: soft, tender (mild) Musculoskeletal: nl gait and stance 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: nl mental status Results Result Diagram: 11/21/1845611/21/18456 Results 24hrs Laboratory Tests Test 11/23/18 09:14 Total Bilirubin 0.3 Direct Bilirubin 0.00 Indirect Bilirubin 0.3 Aspartate Amino Transf (AST/SGOT) 38 Alanine Aminotransferase (ALT/SGPT) 115 H Alkaline Phosphatase 208 H Total Protein 8.2 H Albumin 4.4 Medications Medication Current Medications IV Flush (NS 3 ml) 3 ml PER PROTOCOL IV ; Start 11/16/18 at 23:00 Acetaminophen (Tylenol Tab) 650 mg Q6H PRN PO .PAIN 1-3 OR TEMP; Start 11/16/18 at 23:00 Enoxaparin Sodium (Lovenox) 30 mg DAILY SC Last administered on 11/24/18 08:01; Admin Dose 30 MG; Start 11/17/18 at 09:00 Ondansetron HCl (Zofran Inj) 4 mg Q4 PRN IV NAUSEA/VOMITING Last administered on 11/24/18 06:44; Admin Dose 4 MG; Start 11/17/18 at 02:00 Hydromorphone HCl (Dilaudid) 1 mg Q4H PRN IV SEVERE PAIN LEVEL 7-10 Last administered on 11/24/18 06:39; Admin Dose 1 MG; Start 11/17/18 at 02:00 Pantoprazole (Protonix Iv) 40 mg DAILY@06 IV Last administered on 11/24/18 05:39; Admin Dose 40 MG; Start 11/17/18 at 14:00 Nicotine (Nicoderm 14 Mg/ 24hr) 1 patch DAILY TRANSDERM Last administered on 11/24/18 08:00; Admin Dose 1 PATCH; Start 11/17/18 at 14:30 Metoclopramide HCl (Reglan) 10 mg Q6H PRN IV NAUSEA AND/OR VOMITING Last administered on 11/21/18 15:20; Admin Dose 10 MG; Start 11/17/18 at 13:00 Lorazepam (Ativan) 0.5 mg Q6H PRN PO ANXIETY Last administered on 11/24/18 08:12; Admin Dose 0.5 MG; Start 11/17/18 at 13:00 Potassium Chloride 40 meq/ Dextrose/Sodium Chloride 1,000 ml @ 70 mls/hr [id number] IV Last administered on 11/24/18 01:26; Admin Dose 70 MLS/HR; Start 11/17/18 at 14:30 Ciprofloxacin/ Dextrose 200 ml @ 200 mls/hr Q12 IVPB Last administered on 11/24/18 08:00; Admin Dose 200 MLS/HR; Start 11/20/18 at 11:00 Acetaminophen/ Hydrocodone Bitart ([place] (5/325)) 1 tab Q4H PRN PO MODERATE PAIN LEVEL 4-6 Last administered on 11/24/18 01:40; Admin Dose 1 TAB; Start 11/20/18 at 14:00 Amylase/Lipase/ Protease (Creon (73p-51x-318t)) 1 cap WITH MEALS PO Last administered on 11/24/18 07:54; Admin Dose 1 CAP; Start 11/22/18 at 21:00 [place] SURESH Nov 24, 2018 08:38
[2018-11-24 14:36] VITALS: BP 131/84; PULSE 81; RESP 16
[2018-11-24] MEDS: METOCLOPRAMIDE 10 MG INJ IV PRN (16:02)
[2018-11-24 20:02] VITALS: BP 142/77; PULSE 78; RESP 18
[2018-11-24] MEDS: AMOXICILLIN 250 MG CAP PO SCH (23:28)
[2018-11-25] MEDS: LORAZEPAM 0.5 MG TAB PO PRN ×2 (01:17→20:27)
[2018-11-25 01:38] VITALS: BP 143/82; PULSE 82; RESP 18
[2018-11-25] MEDS: ONDANSETRON 4 MG INJ IV PRN ×3 (06:20→15:49)
[2018-11-25] MEDS: HYDROmorphONE 1 MG/ML SYG IV PRN ×3 (06:20→15:49)
[2018-11-25] MEDS: PANTOPRAZOLE 40 MG INJ IV SCH (06:20)
[2018-11-25] MEDS: AMOXICILLIN 250 MG CAP PO SCH ×2 (06:20→12:51)
[2018-11-25 08:12] VITALS: BP 125/76; PULSE 76; RESP 18
[2018-11-25] MEDS: CREON (24K-76K-120K) 1 CAP PO SCH ×3 (08:35→18:20)
[2018-11-25] MEDS: DEXTROSE IV SCH (08:36)
[2018-11-25] MEDS: NACL IV SCH (08:36)
[2018-11-25] MEDS: POTASSIUM CHLORIDE IV SCH (08:36)
[2018-11-25] MEDS: CIPROFLOXACIN 400MG/D5W 200 ML IVPB SCH ×2 (08:36→20:31)
[2018-11-25] MEDS: NICOTINE (14 MG/24 HR) PATCH TRANSDERM SCH (08:38)
[2018-11-25] MEDS: ENOXAPARIN 30 MG/0.3 ML SYG SC SCH (08:43)
[2018-11-25] MEDS: HYDROCODONE/APAP (5/325) TAB PO PRN ×4 (09:00→22:39)
[2018-11-25 14:09] VITALS: BP 133/77; PULSE 88; RESP 16
--- NOTE | 2018-11-25 15:53 | PN ---
Date/Time of Note Date/Time of Note DATE: 11/25/18 TIME: 15:53 Assessment/Plan VTE Prophylaxis Risk score (from Nsg)>0 risk: 1 SCD applied (from Nsg): No Lines/Catheters IV Catheter Type (from Nrsg): [place] Urinary Cath still in place: No Assessment/Plan Assessment/Plan -S/P ERCP, removal of the pigmented stone and placement of self-expanding metallic stent for biliary stricture on 11/19/18. -Abdominal pain, nausea and vomiting. Keep patient n.p.o. Dilaudid as needed for pain and Zofran as needed for nausea. Dr. Samuels is following in gastroenterology consultation. -Transaminitis -Status post ERCP, sphincterotomy and stent placement. Status post ERCP, removal of the biliary stent, removal of sludge by Dr. Samuels on 06/18/2018. -History of GERD, continue Protonix. -Anxiety, continue Ativan as needed -Tobacco dependence, cessation is strongly advised, continue nicotine patch. -History of chronic pancreatitis Result Diagram: 11/25/18 0516 11/25/18 0516 Results 24hrs Laboratory Tests Test 11/25/18 05:16 White Blood Count 5.6 # Red Blood Count 3.85 L Hemoglobin 12.1 Hematocrit 36.0 L Mean Corpuscular Volume 93.5 Mean Corpuscular Hemoglobin 31.4 Mean Corpuscular Hemoglobin Concent 33.6 Red Cell Distribution Width 13.0 Platelet Count 269 Mean Platelet Volume 11.2 H Immature Granulocytes % 0.500 H Neutrophils % 38.9 L Lymphocytes % 47.0 Monocytes % 10.2 Eosinophils % 2.7 Basophils % 0.7 Nucleated Red Blood Cells % 0.0 Immature Granulocytes # 0.030 Neutrophils # 2.2 Lymphocytes # 2.6 Monocytes # 0.6 Eosinophils # 0.2 Basophils # 0.0 Nucleated Red Blood Cells # 0.0 Sodium Level 142 Potassium Level 3.9 Chloride Level 107 Carbon Dioxide Level 27 Anion Gap 8 Blood Urea Nitrogen 6 L Creatinine 0.58 Est Glomerular Filtrat Rate mL/min > 60 Glucose Level 122 Calcium Level 10.2 Subjective 24 Hr Interval Summary Eyes: no complaints ENT: no complaints Respiratory: no complaints Cardiovascular: no complaints Gastrointestinal: pain Skin: no complaints Neurologic: no complaints Endocrine: no complaints Lymphatic: no complaints Psychological: nl mood/affect Immunologic: no complaints Exam/Review of Systems Exam Vitals Vital Signs Date Temp Pulse Resp B/P (MAP) Pulse Ox O2 O2 Flow FiO2 Time Delivery Rate 11/25/18 98.6 88 16 133/77 94 14:09 (95) 11/22/18 Room Air 14:35 Intake and Output 11/24/18 11/24/18 11/25/18 1515:00 23:00 07:00 IntakeIntake Total 1560 ml 1810 ml 770 ml BalanceBalance 1560 ml 1810 ml 770 ml Constitutional: alert, oriented, well developed Psych: nl mood/affect Head: atraumatic Eyes: nl lids, nl sclera ENMT: nl external ears & nose Respiratory: clear to auscultation Cardiovascular: nl pulses, other (s12) Gastrointestinal: soft, tender Musculoskeletal: nl extremities to inspection Extremities: normal pulses 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: nl speech Skin: nl turgor Results Results 24hrs Laboratory Tests Test 11/25/18 05:16 White Blood Count 5.6 # Red Blood Count 3.85 L Hemoglobin 12.1 Hematocrit 36.0 L Mean Corpuscular Volume 93.5 Mean Corpuscular Hemoglobin 31.4 Mean Corpuscular Hemoglobin Concent 33.6 Red Cell Distribution Width 13.0 Platelet Count 269 Mean Platelet Volume 11.2 H Immature Granulocytes % 0.500 H Neutrophils % 38.9 L Lymphocytes % 47.0 Monocytes % 10.2 Eosinophils % 2.7 Basophils % 0.7 Nucleated Red Blood Cells % 0.0 Immature Granulocytes # 0.030 Neutrophils # 2.2 Lymphocytes # 2.6 Monocytes # 0.6 Eosinophils # 0.2 Basophils # 0.0 Nucleated Red Blood Cells # 0.0 Sodium Level 142 Potassium Level 3.9 Chloride Level 107 Carbon Dioxide Level 27 Anion Gap 8 Blood Urea Nitrogen 6 L Creatinine 0.58 Est Glomerular Filtrat Rate mL/min > 60 Glucose Level 122 Calcium Level 10.2 Medications Medication Current Medications IV Flush (NS 3 ml) 3 ml PER PROTOCOL IV ; Start 11/16/18 at 23:00 Acetaminophen (Tylenol Tab) 650 mg Q6H PRN PO .PAIN 1-3 OR TEMP; Start 11/16/18 at 23:00 Enoxaparin Sodium (Lovenox) 30 mg DAILY SC Last administered on 11/25/18at 08:43; Admin Dose 30 MG; Start 11/17/18 at 09:00 Ondansetron HCl (Zofran Inj) 4 mg Q4 PRN IV NAUSEA/VOMITING Last administered on 11/25/18 15:49; Admin Dose 4 MG; Start 11/17/18 at 02:00 Hydromorphone HCl (Dilaudid) 1 mg Q4H PRN IV SEVERE PAIN LEVEL 7-10 Last administered on 11/25/18 15:49; Admin Dose 1 MG; Start 11/17/18 at 02:00 Pantoprazole (Protonix Iv) 40 mg DAILY@06 IV Last administered on 11/25/18 06:20; Admin Dose 40 MG; Start 11/17/18 at 14:00 Nicotine (Nicoderm 14 Mg/ 24hr) 1 patch DAILY TRANSDERM Last administered on 11/25/18 08:38; Admin Dose 1 PATCH; Start 11/17/18 at 14:30 Metoclopramide HCl (Reglan) 10 mg Q6H PRN IV NAUSEA AND/OR VOMITING Last administered on 11/24/18 16:02; Admin Dose 10 MG; Start 11/17/18 at 13:00 Lorazepam (Ativan) 0.5 mg Q6H PRN PO ANXIETY Last administered on 11/25/18 01:17; Admin Dose 0.5 MG; Start 11/17/18 at 13:00 Potassium Chloride 40 meq/ Dextrose/Sodium Chloride 1,000 ml @ 70 mls/hr [id number] IV Last administered on 11/25/18 08:36; Admin Dose 70 MLS/HR; Start 11/17/18 at 14:30 Ciprofloxacin/ Dextrose 200 ml @ 200 mls/hr Q12 IVPB Last administered on 11/25/18 08:36; Admin Dose 200 MLS/HR; Start 11/20/18 at 11:00 Acetaminophen/ Hydrocodone Bitart ([place] (5/325)) 1 tab Q4H PRN PO MODERATE PAIN LEVEL 4-6 Last administered on 11/25/18 13:51; Admin Dose 1 TAB; Start 11/20/18 at 14:00 Amylase/Lipase/ Protease (Creon ([id number])) 1 cap WITH MEALS PO Last administered on 11/25/18 12:51; Admin Dose 1 CAP; Start 11/22/18 at 21:00 Amoxicillin (Amoxicillin) 250 mg Q6 PO Last administered on 11/25/18at 12:51; Admin Dose 250 MG; Start 11/25/18 at 00:00 LANDRY WOODARD Nov 25, 2018 15:53
--- NOTE | 2018-11-25 15:59 | CONS ---
Assessment/Plan Assessment/Plan Assessment/Plan (Daily) 1. Abd pain -improved 2. Nausea -improved 3. Transaminitis -improved 4. Chronic pancreatitis 5. S/P ERCP-11/19/2018 - sphincterotomy with removal of stent in , 6. H/O GERD -PPI for GI prophylaxis 7. Anxiety -prn ativan 8. Nicotine dependence -on Nicotine patch 9. Cholangitis -s/p ERCP with metallic stent placement, there were pigmented stones noted and not all were cleared. Plan: Low fat diet, education provided [facility] with Dr Coffey. Discussed with pt. Will need stent removed in 3 months Pain management and prn anti emetics Continue abx Consultation Date/Type/Reason Admit Date/Time Nov 16, 2018 at 22:26 Initial Consult Date Date/Time of Note DATE: 11/25/18 TIME: 15:59 24 HR Interval Summary Constitutional: improved Exam/Review of Systems Exam Vitals Vital Signs Date Temp Pulse Resp B/P (MAP) Pulse Ox O2 O2 Flow FiO2 Time Delivery Rate 11/25/18 98.6 88 16 133/77 94 14:09 (95) 11/22/18 Room Air 14:35 Intake and Output 11/24/18 11/24/18 11/25/18 1515:00 23:00 07:00 IntakeIntake Total 1560 ml 1810 ml 770 ml BalanceBalance 1560 ml 1810 ml 770 ml Constitutional: alert, oriented, well developed Psych: no complaints, nl mood/affect Head: normocephalic, atraumatic Eyes: nl conjunctiva, EOMI, nl lids, nl sclera, PERRL ENMT: nl external ears & nose, nl lips & teeth, nl nasal mucosa & septum Neck: supple, non-tender Respiratory: clear to auscultation, normal air movement Cardiovascular: regular rate and rhythm, nl pulses Gastrointestinal: soft, nl liver, spleen, non-tender Musculoskeletal: nl extremities to inspection, nl gait and stance Extremities: normal pulses 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: 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 PATCHER PLASTIC II-XII intact, nl mental status, nl speech, nl strength Skin: nl turgor; No rash or lesions Lymph: nl lymph nodes Results Result Diagram: 11/25/18 0516 11/25/18 0516 Results 24hrs Laboratory Tests Test 11/25/18 05:16 White Blood Count 5.6 # Red Blood Count 3.85 L Hemoglobin 12.1 Hematocrit 36.0 L Mean Corpuscular Volume 93.5 Mean Corpuscular Hemoglobin 31.4 Mean Corpuscular Hemoglobin Concent 33.6 Red Cell Distribution Width 13.0 Platelet Count 269 Mean Platelet Volume 11.2 H Immature Granulocytes % 0.500 H Neutrophils % 38.9 L Lymphocytes % 47.0 Monocytes % 10.2 Eosinophils % 2.7 Basophils % 0.7 Nucleated Red Blood Cells % 0.0 Immature Granulocytes # 0.030 Neutrophils # 2.2 Lymphocytes # 2.6 Monocytes # 0.6 Eosinophils # 0.2 Basophils # 0.0 Nucleated Red Blood Cells # 0.0 Sodium Level 142 Potassium Level 3.9 Chloride Level 107 Carbon Dioxide Level 27 Anion Gap 8 Blood Urea Nitrogen 6 L Creatinine 0.58 Est Glomerular Filtrat Rate mL/min > 60 Glucose Level 122 Calcium Level 10.2 Medications Medication Current Medications IV Flush (NS 3 ml) 3 ml PER PROTOCOL IV ; Start 11/16/18 at 23:00 Acetaminophen (Tylenol Tab) 650 mg Q6H PRN PO .PAIN 1-3 OR TEMP; Start 11/16/18 at 23:00 Enoxaparin Sodium (Lovenox) 30 mg DAILY SC Last administered on 11/25/18 08:43; Admin Dose 30 MG; Start 11/17/18 at 09:00 Ondansetron HCl (Zofran Inj) 4 mg Q4 PRN IV NAUSEA/VOMITING Last administered on 11/25/18 15:49; Admin Dose 4 MG; Start 11/17/18 at 02:00 Hydromorphone HCl (Dilaudid) 1 mg Q4H PRN IV SEVERE PAIN LEVEL 7-10 Last administered on 11/25/18 15:49; Admin Dose 1 MG; Start 11/17/18 at 02:00 Pantoprazole (Protonix Iv) 40 mg DAILY@06 IV Last administered on 11/25/18 06: 20; Admin Dose 40 MG; Start 11/17/18 at 14:00 Nicotine (Nicoderm 14 Mg/ 24hr) 1 patch DAILY TRANSDERM Last administered on 11/25/18 08:38; Admin Dose 1 PATCH; Start 11/17/18 at 14:30 Metoclopramide HCl (Reglan) 10 mg Q6H PRN IV NAUSEA AND/OR VOMITING Last administered on 11/24/18 16:02; Admin Dose 10 MG; Start 11/17/18 at 13:00 Lorazepam (Ativan) 0.5 mg Q6H PRN PO ANXIETY Last administered on 11/25/18 01:17; Admin Dose 0.5 MG; Start 11/17/18 at 13:00 Potassium Chloride 40 meq/ Dextrose/Sodium Chloride 1,000 ml @ 70 mls/hr [id number] IV Last administered on 11/25/18 08:36; Admin Dose 70 MLS/HR; Start 11/17/18 at 14:30 Ciprofloxacin/ Dextrose 200 ml @ 200 mls/hr Q12 IVPB Last administered on 11/25/18 08:36; Admin Dose 200 MLS/HR; Start 11/20/18 at 11:00 Acetaminophen/ Hydrocodone Bitart ([place] (5/325)) 1 tab Q4H PRN PO MODERATE PAIN LEVEL 4-6 Last administered on 11/25/18 13:51; Admin Dose 1 TAB; Start 11/20/18 at 14:00 Amylase/Lipase/ Protease (Creon ([id number])) 1 cap WITH MEALS PO Last administered on 11/25/18 12:51; Admin Dose 1 CAP; Start 11/22/18 at 21:00 Amoxicillin (Amoxicillin) 250 mg Q6 PO Last administered on 11/25/18 12:51; Admin Dose 250 MG; Start 11/25/18 at 00:00 DAVONTE COFFEY MD Nov 25, 2018 15:59
[2018-11-25 20:00] VITALS: BP 134/87; PULSE 75; RESP 18
[2018-11-26 02:00] VITALS: BP 123/77; PULSE 83; RESP 18
[2018-11-26] MEDS: ONDANSETRON 4 MG INJ IV PRN ×4 (02:26→22:18)
[2018-11-26] MEDS: HYDROCODONE/APAP (5/325) TAB PO PRN ×4 (02:36→20:40)
[2018-11-26] MEDS: NACL IV SCH ×3 (02:41→22:57)
[2018-11-26] MEDS: DEXTROSE IV SCH ×3 (02:41→22:57)
[2018-11-26] MEDS: POTASSIUM CHLORIDE IV SCH ×3 (02:41→22:57)
[2018-11-26] MEDS: METOCLOPRAMIDE 10 MG INJ IV PRN (05:21)
[2018-11-26] MEDS: HYDROmorphONE 1 MG/ML SYG IV PRN ×4 (05:21→22:18)
[2018-11-26] MEDS: PANTOPRAZOLE 40 MG INJ IV SCH (05:24)
[2018-11-26 08:11] VITALS: BP 113/69; PULSE 87; RESP 18
[2018-11-26] MEDS: NICOTINE (14 MG/24 HR) PATCH TRANSDERM SCH (08:25)
[2018-11-26] MEDS: CIPROFLOXACIN 400MG/D5W 200 ML IVPB SCH ×2 (08:25→20:40)
[2018-11-26] MEDS: CREON (24K-76K-120K) 1 CAP PO SCH ×3 (08:25→17:45)
[2018-11-26] MEDS: ENOXAPARIN 30 MG/0.3 ML SYG SC SCH (08:27)
--- NOTE | 2018-11-26 11:08 | CONS ---
Assessment/Plan Assessment/Plan Assessment/Plan (Daily) Assessment/Plan (Daily) 1. Abd pain -improved 2. Nausea -improved 3. Transaminitis -improved 4. Chronic pancreatitis 5. S/P ERCP-11/19/2018 - sphincterotomy with removal of stent in , 6. H/O GERD -PPI for GI prophylaxis 7. Anxiety -prn ativan 8. Nicotine dependence -on Nicotine patch 9. Cholangitis -s/p ERCP with metallic stent placement, there were pigmented stones noted and not all were cleared. Plan: Low fat diet, education provided [facility] with Dr Coffey. Discussed with pt. Will need stent removed in 3 months Pain management and prn anti emetics Continue abx Cessation of smoking Consultation Date/Type/Reason Admit Date/Time Nov 16, 2018 at 22:26 Initial Consult Date Date/Time of Note DATE: 11/26/18 TIME: 11:07 24 HR Interval Summary Constitutional: improved Exam/Review of Systems Exam Vitals Vital Signs Date Temp Pulse Resp B/P (MAP) Pulse Ox O2 O2 Flow FiO2 Time Delivery Rate 11/26/18 98.5 87 18 113/69 100 08:11 (84) 11/26/18 Room Air 02:00 Intake and Output 11/25/18 11/25/18 11/26/18 1515:00 23:00 07:00 IntakeIntake Total 1650 ml 1800 ml 668 ml BalanceBalance 1650 ml 1800 ml 668 ml Constitutional: alert, oriented, well developed Psych: no complaints, nl mood/affect Head: normocephalic, atraumatic Eyes: nl conjunctiva, EOMI, nl lids, nl sclera, PERRL ENMT: nl external ears & nose, nl lips & teeth, nl nasal mucosa & septum Neck: supple, non-tender Respiratory: clear to auscultation, normal air movement Cardiovascular: regular rate and rhythm, nl pulses Gastrointestinal: soft, nl liver, spleen, non-tender Musculoskeletal: nl extremities to inspection, nl gait and stance Extremities: normal pulses 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: INVESTOR II-XII intact, nl mental status, nl speech, nl strength Skin: nl turgor; No rash or lesions Lymph: nl lymph nodes Results Result Diagram: 11/26/18 0451 11/26/18 0451 Results 24hrs Laboratory Tests Test 11/26/18 04:51 White Blood Count 4.7 L Red Blood Count 4.18 L Hemoglobin 13.0 Hematocrit 39.2 Mean Corpuscular Volume 93.8 Mean Corpuscular Hemoglobin 31.1 Mean Corpuscular Hemoglobin Concent 33.2 Red Cell Distribution Width 13.1 Platelet Count 283 Mean Platelet Volume 11.2 H Immature Granulocytes % 0.400 Neutrophils % 37.1 L Lymphocytes % 48.5 Monocytes % 10.0 Eosinophils % 3.2 Basophils % 0.8 Nucleated Red Blood Cells % 0.0 Immature Granulocytes # 0.020 Neutrophils # 1.8 Lymphocytes # 2.3 Monocytes # 0.5 Eosinophils # 0.2 Basophils # 0.0 Nucleated Red Blood Cells # 0.0 Sodium Level 141 Potassium Level 4.0 Chloride Level 105 Carbon Dioxide Level 26 Anion Gap 10 Blood Urea Nitrogen 4 L Creatinine 0.55 Est Glomerular Filtrat Rate mL/min > 60 Glucose Level 127 Calcium Level 10.0 Medications Medication Current Medications IV Flush (NS 3 ml) 3 ml PER PROTOCOL IV ; Start 11/16/18 at 23:00 Acetaminophen (Tylenol Tab) 650 mg Q6H PRN PO .PAIN 1-3 OR TEMP; Start 11/16/18 at 23:00 Enoxaparin Sodium (Lovenox) 30 mg DAILY SC Last administered on 11/26/18at 08:27; Admin Dose 30 MG; Start 11/17/18 at 09:00 Ondansetron HCl (Zofran Inj) 4 mg Q4 PRN IV NAUSEA/VOMITING Last administered on 11/26/18 08:32; Admin Dose 4 MG; Start 11/17/18 at 02:00 Hydromorphone HCl (Dilaudid) 1 mg Q4H PRN IV SEVERE PAIN LEVEL 7-10 Last administered on 11/26/18 05:21; Admin Dose 1 MG; Start 11/17/18 at 02:00 Pantoprazole (Protonix Iv) 40 mg DAILY@06 IV Last administered on 11/26/18 05:24; Admin Dose 40 MG; Start 11/17/18 at 14:00 Nicotine (Nicoderm 14 Mg/ 24hr) 1 patch DAILY TRANSDERM Last administered on 11/26/18 08:25; Admin Dose 1 PATCH; Start 11/17/18 at 14:30 Metoclopramide HCl (Reglan) 10 mg Q6H PRN IV NAUSEA AND/OR VOMITING Last administered on 11/26/18 05:21; Admin Dose 10 MG; Start 11/17/18 at 13:00 Lorazepam (Ativan) 0.5 mg Q6H PRN PO ANXIETY Last administered on 11/25/18 20:27; Admin Dose 0.5 MG; Start 11/17/18 at 13:00 Potassium Chloride 40 meq/ Dextrose/Sodium Chloride 1,000 ml @ 70 mls/hr [id number] IV Last administered on 11/26/18 02:41; Admin Dose 70 MLS/HR; Start 11/17/18 at 14:30 Ciprofloxacin/ Dextrose 200 ml @ 200 mls/hr Q12 IVPB Last administered on 11/26/18 08:25; Admin Dose 200 MLS/HR; Start 11/20/18 at 11:00; Stop 11/26/18 at 23:45 Acetaminophen/ Hydrocodone Bitart ([place] (5/325)) 1 tab Q4H PRN PO MODERATE PAIN LEVEL 4-6 Last administered on 11/26/18 08:32; Admin Dose 1 TAB; Start 11/20/18 at 14:00 Amylase/Lipase/ Protease (Creon ([id number])) 1 cap WITH MEALS PO Last administered on 11/26/18 08:25; Admin Dose 1 CAP; Start 11/22/18 at 21:00 DAVONTE COFFEY MD Nov 26, 2018 11:08
[2018-11-26 15:08] VITALS: BP 152/87; PULSE 74; RESP 19
[2018-11-26] MEDS: LORAZEPAM 0.5 MG TAB PO PRN (16:16)
[2018-11-26 20:00] VITALS: BP 123/86; PULSE 79; RESP 18
--- NOTE | 2018-11-26 21:17 | PN ---
Date/Time of Note Date/Time of Note DATE: 11/26/18 TIME: 21:16 Assessment/Plan VTE Prophylaxis Risk score (from Ns)>0 risk: 1 SCD applied (from [facility] [place]): No SCD contraindicated: other Pharmacological prophylaxis: other Pharm contraindication: other Lines/Catheters IV Catheter Type (from [facility] Peripheral IV Urinary Cath still in place: No Assessment/Plan Assessment/Plan -S/P ERCP, removal of the pigmented stone and placement of self-expanding metallic stent for biliary stricture on 11/19/18. -Abdominal pain, nausea and vomiting. Keep patient n.p.o. Dilaudid as needed for pain and Zofran as needed for nausea. Dr. Samuels is following in gastroenterology consultation. -Transaminitis -Status post ERCP, sphincterotomy and stent placement. Status post ERCP, removal of the biliary stent, removal of sludge by Dr. Samuels on 06/18/2018. -History of GERD, continue Protonix. -Anxiety, continue Ativan as needed -Tobacco dependence, cessation is strongly advised, continue nicotine patch. -History of chronic pancreatitis Result Diagram: 11/26/18 0451 11/26/18 0451 Results 24hrs Laboratory Tests Test 11/26/18 04:51 White Blood Count 4.7 L Red Blood Count 4.18 L Hemoglobin 13.0 Hematocrit 39.2 Mean Corpuscular Volume 93.8 Mean Corpuscular Hemoglobin 31.1 Mean Corpuscular Hemoglobin Concent 33.2 Red Cell Distribution Width 13.1 Platelet Count 283 Mean Platelet Volume 11.2 H Immature Granulocytes % 0.400 Neutrophils % 37.1 L Lymphocytes % 48.5 Monocytes % 10.0 Eosinophils % 3.2 Basophils % 0.8 Nucleated Red Blood Cells % 0.0 Immature Granulocytes # 0.020 Neutrophils # 1.8 Lymphocytes # 2.3 Monocytes # 0.5 Eosinophils # 0.2 Basophils # 0.0 Nucleated Red Blood Cells # 0.0 Sodium Level 141 Potassium Level 4.0 Chloride Level 105 Carbon Dioxide Level 26 Anion Gap 10 Blood Urea Nitrogen 4 L Creatinine 0.55 Est Glomerular Filtrat Rate mL/min > 60 Glucose Level 127 Calcium Level 10.0 Subjective 24 Hr Interval Summary Eyes: no complaints ENT: no complaints Respiratory: no complaints Gastrointestinal: pain Genitourinary: no complaints Musculoskeletal: no complaints Skin: no complaints Neurologic: no complaints Endocrine: no complaints Lymphatic: no complaints Psychological: nl mood/affect Immunologic: no complaints Exam/Review of Systems Exam Vitals Vital Signs Date Temp Pulse Resp B/P (MAP) Pulse Ox O2 O2 Flow FiO2 Time Delivery Rate 11/26/18 98.7 79 18 123/86 99 20:00 (98) 11/26/18 Room Air 02:00 Intake and Output 11/25/18 11/25/18 11/26/18 1515:00 23:00 07:00 IntakeIntake Total 1650 ml 1800 ml 668 ml BalanceBalance 1650 ml 1800 ml 668 ml Constitutional: alert, well developed Psych: nl mood/affect Head: atraumatic Eyes: nl lids, nl sclera ENMT: nl external ears & nose Neck: non-tender Respiratory: clear to auscultation Cardiovascular: nl pulses, other Gastrointestinal: soft, non-tender Musculoskeletal: nl extremities to inspection Extremities: normal pulses 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: nl mental status, nl speech Results Results 24hrs Laboratory Tests Test 11/26/18 04:51 White Blood Count 4.7 L Red Blood Count 4.18 L Hemoglobin 13.0 Hematocrit 39.2 Mean Corpuscular Volume 93.8 Mean Corpuscular Hemoglobin 31.1 Mean Corpuscular Hemoglobin Concent 33.2 Red Cell Distribution Width 13.1 Platelet Count 283 Mean Platelet Volume 11.2 H Immature Granulocytes % 0.400 Neutrophils % 37.1 L Lymphocytes % 48.5 Monocytes % 10.0 Eosinophils % 3.2 Basophils % 0.8 Nucleated Red Blood Cells % 0.0 Immature Granulocytes # 0.020 Neutrophils # 1.8 Lymphocytes # 2.3 Monocytes # 0.5 Eosinophils # 0.2 Basophils # 0.0 Nucleated Red Blood Cells # 0.0 Sodium Level 141 Potassium Level 4.0 Chloride Level 105 Carbon Dioxide Level 26 Anion Gap 10 Blood Urea Nitrogen 4 L Creatinine 0.55 Est Glomerular Filtrat Rate mL/min > 60 Glucose Level 127 Calcium Level 10.0 Medications Medication Current Medications IV Flush (NS 3 ml) 3 ml PER PROTOCOL IV ; Start 11/16/18 at 23:00 Acetaminophen (Tylenol Tab) 650 mg Q6H PRN PO .PAIN 1-3 OR TEMP; Start 11/16/18 at 23:00 Enoxaparin Sodium (Lovenox) 30 mg DAILY SC Last administered on 11/26/18at 08:27; Admin Dose 30 MG; Start 11/17/18 at 09:00 Ondansetron HCl (Zofran Inj) 4 mg Q4 PRN IV NAUSEA/VOMITING Last administered on 11/26/18 15:03; Admin Dose 4 MG; Start 11/17/18 at 02:00 Hydromorphone HCl (Dilaudid) 1 mg Q4H PRN IV SEVERE PAIN LEVEL 7-10 Last administered on 11/26/18 18:08; Admin Dose 1 MG; Start 11/17/18 at 02:00 Pantoprazole (Protonix Iv) 40 mg DAILY@06 IV Last administered on 11/26/18 05 :24; Admin Dose 40 MG; Start 11/17/18 at 14:00 Nicotine (Nicoderm 14 Mg/ 24hr) 1 patch DAILY TRANSDERM Last administered on 11/26/18 08:25; Admin Dose 1 PATCH; Start 11/17/18 at 14:30 Metoclopramide HCl (Reglan) 10 mg Q6H PRN IV NAUSEA AND/OR VOMITING Last administered on 11/26/18 05:21; Admin Dose 10 MG; Start 11/17/18 at 13:00 Lorazepam (Ativan) 0.5 mg Q6H PRN PO ANXIETY Last administered on 11/26/18 16:16; Admin Dose 0.5 MG; Start 11/17/18 at 13:00 Potassium Chloride 40 meq/ Dextrose/Sodium Chloride 1,000 ml @ 70 mls/hr [id number] IV Last administered on 11/26/18 02:41; Admin Dose 70 MLS/HR; Start 11/17/18 at 14:30 Ciprofloxacin/ Dextrose 200 ml @ 200 mls/hr Q12 IVPB Last administered on 11/26/18 20:40; Admin Dose 200 MLS/HR; Start 11/20/18 at 11:00; Stop 11/26/18 at 23:45 Acetaminophen/ Hydrocodone Bitart ([place] (5/325)) 1 tab Q4H PRN PO MODERATE PAIN LEVEL 4-6 Last administered on 11/26/18 20:40; Admin Dose 1 TAB; Start 11/20/18 at 14:00 Amylase/Lipase/ Protease (Creon ([id number])) 1 cap WITH MEALS PO Last administered on 4/25/19at 17:45; Admin Dose 1 CAP; Start 11/22/18 at 21:00 LANDRY WOODARD Nov 26, 2018 21:17
[2018-11-27] MEDS: HYDROCODONE/APAP (5/325) TAB PO PRN ×4 (00:48→18:59)
[2018-11-27 02:00] VITALS: BP 119/80; PULSE 77; RESP 18
[2018-11-27] MEDS: DEXTROSE IV SCH ×3 (02:24→17:17)
[2018-11-27] MEDS: NACL IV SCH ×3 (02:24→17:17)
[2018-11-27] MEDS: POTASSIUM CHLORIDE IV SCH ×3 (02:24→17:17)
[2018-11-27] MEDS: ONDANSETRON 4 MG INJ IV PRN ×3 (05:12→21:12)
[2018-11-27] MEDS: HYDROmorphONE 1 MG/ML SYG IV PRN ×4 (05:12→21:12)
[2018-11-27] MEDS: PANTOPRAZOLE 40 MG INJ IV SCH ×2 (05:12→21:03)
[2018-11-27 08:11] VITALS: BP 110/55; PULSE 70; RESP 17
[2018-11-27] MEDS: CREON (24K-76K-120K) 1 CAP PO SCH ×3 (08:50→17:16)
[2018-11-27] MEDS: ENOXAPARIN 30 MG/0.3 ML SYG SC SCH (08:50)
[2018-11-27] MEDS: NICOTINE (14 MG/24 HR) PATCH TRANSDERM SCH (08:51)
--- NOTE | 2018-11-27 09:19 | CONS ---
Assessment/Plan Assessment/Plan Hospital Course (Demo Recall) 48yo female with h/o chronic pancreatitis presents with abd pain and nausea Interval hx: Still has mild abd pain but not the same as before. States the pain is more epigastric burning like heartburn with nausea. 1. Abd pain -improved 2. Nausea -improved 3. Transaminitis -improved 4. Chronic pancreatitis 5. S/P ERCP-11/19/2018 - sphincterotomy with removal of stent in , 6. H/O GERD -PPI for GI prophylaxis 7. Anxiety -prn ativan 8. Nicotine dependence -on Nicotine patch 9. Cholangitis -s/p ERCP with metallic stent placement, there were pigmented stones noted and not all were cleared. Plan: Increase PPI to bid Low fat diet, education provided [facility] with Dr Samuels. Discussed with pt. Will need stent removed in 3 months Pain management and prn anti emetics Continue abx Pt examined and POC discussed with Dr. Samuels Consultation Date/Type/Reason Admit Date/Time Nov 16, 2018 at 22:26 Initial Consult Date Date/Time of Note DATE: 11/27/18 TIME: 09:17 Exam/Review of Systems Exam Vitals Vital Signs Date Temp Pulse Resp B/P (MAP) Pulse Ox O2 O2 Flow FiO2 Time Delivery Rate 11/27/18 98.3 70 17 110/55 97 08:11 (73) 11/26/18 Room Air 02:00 Intake and Output 11/26/18 11/26/18 11/27/18 1414:59 22:59 06:59 IntakeIntake Total 1200 ml 1312 ml BalanceBalance 1200 ml 1312 ml Constitutional: alert, oriented Psych: depression Eyes: PERRL Respiratory: clear to auscultation Cardiovascular: regular rate and rhythm Gastrointestinal: soft, tender Musculoskeletal: nl gait and stance Extremities: normal pulses 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: nl mental status Results Result Diagram: 11/27/1844111/27/18441 Results 24hrs Laboratory Tests Test 11/27/18 04:42 White Blood Count 5.2 Red Blood Count 4.03 L Hemoglobin 12.5 Hematocrit 37.5 Mean Corpuscular Volume 93.1 Mean Corpuscular Hemoglobin 31.0 Mean Corpuscular Hemoglobin Concent 33.3 Red Cell Distribution Width 12.9 Platelet Count 299 Mean Platelet Volume 11.3 H Immature Granulocytes % 0.400 Neutrophils % 40.8 Lymphocytes % 46.2 Monocytes % 8.9 Eosinophils % 2.9 Basophils % 0.8 Nucleated Red Blood Cells % 0.0 Immature Granulocytes # 0.020 Neutrophils # 2.1 Lymphocytes # 2.4 Monocytes # 0.5 Eosinophils # 0.2 Basophils # 0.0 Nucleated Red Blood Cells # 0.0 Sodium Level 141 Potassium Level 3.9 Chloride Level 104 Carbon Dioxide Level 27 Anion Gap 10 Blood Urea Nitrogen 4 L Creatinine 0.57 Est Glomerular Filtrat Rate mL/min > 60 Glucose Level 126 Calcium Level 9.9 Medications Medication Current Medications IV Flush (NS 3 ml) 3 ml PER PROTOCOL IV ; Start 11/16/18 at 23:00 Acetaminophen (Tylenol Tab) 650 mg Q6H PRN PO .PAIN 1-3 OR TEMP; Start 11/16/18 at 23:00 Enoxaparin Sodium (Lovenox) 30 mg DAILY SC Last administered on 11/27/18at 08:50; Admin Dose 30 MG; Start 11/17/18 at 09:00 Ondansetron HCl (Zofran Inj) 4 mg Q4 PRN IV NAUSEA/VOMITING Last administered on 11/27/18 05:12; Admin Dose 4 MG; Start 11/17/18 at 02:00 Hydromorphone HCl (Dilaudid) 1 mg Q4H PRN IV SEVERE PAIN LEVEL 7-10 Last administered on 11/27/18 05:12; Admin Dose 1 MG; Start 11/17/18 at 02:00 Pantoprazole (Protonix Iv) 40 mg DAILY@06 IV Last administered on 11/27/18 05:12; Admin Dose 40 MG; Start 11/17/18 at 14:00 Nicotine (Nicoderm 14 Mg/ 24hr) 1 patch DAILY TRANSDERM Last administered on 11/27/18 08:51; Admin Dose 1 PATCH; Start 11/17/18 at 14:30 Metoclopramide HCl (Reglan) 10 mg Q6H PRN IV NAUSEA AND/OR VOMITING Last administered on 11/26/18 05:21; Admin Dose 10 MG; Start 11/17/18 at 13:00 Lorazepam (Ativan) 0.5 mg Q6H PRN PO ANXIETY Last administered on 11/26/18 16:16; Admin Dose 0.5 MG; Start 11/17/18 at 13:00 Potassium Chloride 40 meq/ Dextrose/Sodium Chloride 1,000 ml @ 70 mls/hr [id number] IV Last administered on 11/26/18at 22:57; Admin Dose 70 MLS/HR; Start at 14:30 Acetaminophen/ Hydrocodone Bitart ([place] (5/325)) 1 tab Q4H PRN PO MODERATE PAIN LEVEL 4-6 Last administered on 11/27/18at 06:49; Admin Dose 1 TAB; Start 11/20/18 at 14:00 Amylase/Lipase/ Protease (Creon ([id number])) 1 cap WITH MEALS PO Last administered on 11/27/18at 08:50; Admin Dose 1 CAP; Start 11/22/18 at 21:00 [place] SURESH Nov 27, 2018 09:19
[2018-11-27 15:14] VITALS: BP 109/78; PULSE 100; RESP 16
[2018-11-27] MEDS ORDERED: GUAIFENESIN/CODEINE 5ML CUP PO PRN (16:30)
[2018-11-27] MEDS: LORAZEPAM 0.5 MG TAB PO PRN (17:16)
--- NOTE | 2018-11-27 17:22 | PN ---
Date/Time of Note Date/Time of Note DATE: 11/27/18 TIME: 17:22 Assessment/Plan VTE Prophylaxis Risk score (from Ns)>0 risk: 1 SCD applied (from Ns): No SCD contraindicated: other Pharmacological prophylaxis: other Lines/Catheters IV Catheter Type (from [facility]): Peripheral IV Urinary Cath still in place: No Assessment/Plan Assessment/Plan -S/P ERCP, removal of the pigmented stone and placement of self-expanding metallic stent for biliary stricture on 11/19/18. -Abdominal pain, nausea and vomiting. Keep patient n.p.o. Dilaudid as needed for pain and Zofran as needed for nausea. Dr. Samuels is following in gastroenterology consultation. -Transaminitis -Status post ERCP, sphincterotomy and stent placement. Status post ERCP, removal of the biliary stent, removal of sludge by Dr. Smauels on 06/18/2018. -History of GERD, continue Protonix. -Anxiety, continue Ativan as needed -Tobacco dependence, cessation is strongly advised, continue nicotine patch. -History of chronic pancreatitis Patient seen in collaboration with Dr gorman Result Diagram: 11/27/18 0442 11/27/18 0442 Results 24hrs Laboratory Tests Test 11/27/18 04:42 White Blood Count 5.2 Red Blood Count 4.03 L Hemoglobin 12.5 Hematocrit 37.5 Mean Corpuscular Volume 93.1 Mean Corpuscular Hemoglobin 31.0 Mean Corpuscular Hemoglobin Concent 33.3 Red Cell Distribution Width 12.9 Platelet Count 299 Mean Platelet Volume 11.3 H Immature Granulocytes % 0.400 Neutrophils % 40.8 Lymphocytes % 46.2 Monocytes % 8.9 Eosinophils % 2.9 Basophils % 0.8 Nucleated Red Blood Cells % 0.0 Immature Granulocytes # 0.020 Neutrophils # 2.1 Lymphocytes # 2.4 Monocytes # 0.5 Eosinophils # 0.2 Basophils # 0.0 Nucleated Red Blood Cells # 0.0 Sodium Level 141 Potassium Level 3.9 Chloride Level 104 Carbon Dioxide Level 27 Anion Gap 10 Blood Urea Nitrogen 4 L Creatinine 0.57 Est Glomerular Filtrat Rate mL/min > 60 Glucose Level 126 Calcium Level 9.9 Subjective 24 Hr Interval Summary Constitutional: no complaints Eyes: no complaints ENT: no complaints Cardiovascular: no complaints Gastrointestinal: pain Genitourinary: no complaints Musculoskeletal: no complaints Skin: no complaints Neurologic: no complaints Endocrine: no complaints Lymphatic: no complaints Psychological: nl mood/affect Immunologic: no complaints Exam/Review of Systems Exam Vitals Vital Signs Date Temp Pulse Resp B/P (MAP) Pulse Ox O2 O2 Flow FiO2 Time Delivery Rate 11/27/18 98.3 100 16 109/78 100 15:14 (88) 11/26/18 Room Air 02:00 Intake and Output 11/26/18 11/26/18 11/27/18 1515:00 23:00 07:00 IntakeIntake Total 1200 ml 1312 ml BalanceBalance 1200 ml 1312 ml Constitutional: alert, well developed Psych: nl mood/affect Head: atraumatic Eyes: nl lids, nl sclera ENMT: nl external ears & nose Neck: non-tender Cardiovascular: nl pulses, other (s1s2) Gastrointestinal: soft, non-tender Musculoskeletal: nl extremities to inspection Extremities: normal pulses 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: nl mental status Skin: nl turgor Lymph: nl lymph nodes Results Results 24hrs Laboratory Tests Test 11/27/18 04:42 White Blood Count 5.2 Red Blood Count 4.03 L Hemoglobin 12.5 Hematocrit 37.5 Mean Corpuscular Volume 93.1 Mean Corpuscular Hemoglobin 31.0 Mean Corpuscular Hemoglobin Concent 33.3 Red Cell Distribution Width 12.9 Platelet Count 299 Mean Platelet Volume 11.3 H Immature Granulocytes % 0.400 Neutrophils % 40.8 Lymphocytes % 46.2 Monocytes % 8.9 Eosinophils % 2.9 Basophils % 0.8 Nucleated Red Blood Cells % 0.0 Immature Granulocytes # 0.020 Neutrophils # 2.1 Lymphocytes # 2.4 Monocytes # 0.5 Eosinophils # 0.2 Basophils # 0.0 Nucleated Red Blood Cells # 0.0 Sodium Level 141 Potassium Level 3.9 Chloride Level 104 Carbon Dioxide Level 27 Anion Gap 10 Blood Urea Nitrogen 4 L Creatinine 0.57 Est Glomerular Filtrat Rate mL/min > 60 Glucose Level 126 Calcium Level 9.9 Medications Medication Current Medications IV Flush (NS 3 ml) 3 ml PER PROTOCOL IV ; Start 11/16/18 at 23:00 Acetaminophen (Tylenol Tab) 650 mg Q6H PRN PO .PAIN 1-3 OR TEMP; Start 11/16/18 at 23:00 Enoxaparin Sodium (Lovenox) 30 mg DAILY SC Last administered on 4/26/19at 08:50; Admin Dose 30 MG; Start 11/17/18 at 09:00 Ondansetron HCl (Zofran Inj) 4 mg Q4 PRN IV NAUSEA/VOMITING Last administered on 11/27/18 13:30; Admin Dose 4 MG; Start 11/17/18 at 02:00 Hydromorphone HCl (Dilaudid) 1 mg Q4H PRN IV SEVERE PAIN LEVEL 7-10 Last administered on 11/27/18 16:01; Admin Dose 1 MG; Start 11/17/18 at 02:00 Nicotine (Nicoderm 14 Mg/ 24hr) 1 patch DAILY TRANSDERM Last administered on 11/27/18 08:51; Admin Dose 1 PATCH; Start 11/17/18 at 14:30 Metoclopramide HCl (Reglan) 10 mg Q6H PRN IV NAUSEA AND/OR VOMITING Last administered on 11/26/18 05:21; Admin Dose 10 MG; Start 11/17/18 at 13:00 Lorazepam (Ativan) 0.5 mg Q6H PRN PO ANXIETY Last administered on 11/27/18 17:16; Admin Dose 0.5 MG; Start 11/17/18 at 13:00 Potassium Chloride 40 meq/ Dextrose/Sodium Chloride 1,000 ml @ 70 mls/hr [id number] IV Last administered on 11/27/18 13:30; Admin Dose 70 MLS/HR; Start 11/17/18 at 14:30 Acetaminophen/ Hydrocodone Bitart ([place] (5/325)) 1 tab Q4H PRN PO MODERATE PAIN LEVEL 4-6 Last administered on 11/27/18 11:22; Admin Dose 1 TAB; Start 11/20/18 at 14:00 Amylase/Lipase/ Protease ([place] ([id number])) 1 cap WITH MEALS PO Last administered on 11/27/18 17:16; Admin Dose 1 CAP; Start 11/22/18 at 21:00 Pantoprazole (Protonix Iv) 40 mg BID IV ; Start 11/27/18 at 21:00 Guaifenesin/ Codeine Phosphate (Robitussin Ac Liquid Cup) 5 ml BID PRN PO COUGH; Start 11/27/18 at 16:30; Status LANDRY WILSON Nov 27, 2018 17:22
[2018-11-27 20:09] VITALS: BP 129/87; PULSE 78; RESP 17
[2018-11-28] MEDS: HYDROmorphONE 1 MG/ML SYG IV PRN ×4 (01:36→16:07)
[2018-11-28 01:59] VITALS: BP 111/95; PULSE 76; RESP 17
[2018-11-28] MEDS: HYDROCODONE/APAP (5/325) TAB PO PRN ×4 (03:45→18:21)
[2018-11-28] MEDS: DEXTROSE IV SCH ×3 (04:55→19:18)
[2018-11-28] MEDS: NACL IV SCH ×3 (04:55→19:18)
[2018-11-28] MEDS: POTASSIUM CHLORIDE IV SCH ×3 (04:55→19:18)
[2018-11-28] MEDS: ONDANSETRON 4 MG INJ IV PRN ×3 (05:58→20:56)
[2018-11-28 07:41] VITALS: BP 113/67; PULSE 68; RESP 16
[2018-11-28] MEDS: PANTOPRAZOLE 40 MG INJ IV SCH ×2 (08:40→20:56)
[2018-11-28] MEDS: CREON (24K-76K-120K) 1 CAP PO SCH ×3 (08:40→18:14)
[2018-11-28] MEDS: NICOTINE (14 MG/24 HR) PATCH TRANSDERM SCH (08:41)
[2018-11-28] MEDS: ENOXAPARIN 30 MG/0.3 ML SYG SC SCH (08:43)
[2018-11-28 14:32] VITALS: BP 134/99; PULSE 73; RESP 16
[2018-11-28 16:12] VITALS: BP 136/80; PULSE 79; RESP 18
--- NOTE | 2018-11-28 16:42 | CONS ---
Assessment/Plan Assessment/Plan Hospital Course (Demo Recall) 48yo female with h/o chronic pancreatitis presents with abd pain and nausea Interval hx: Pt feeling better overall. LFT wnl. Pt still taking dilaudid. 1. Abd pain -improved 2. Nausea -improved 3. Transaminitis -resolved 4. Chronic pancreatitis 5. S/P ERCP-11/19/2018 - sphincterotomy with removal of stent in , 6. H/O GERD -PPI for GI prophylaxis 7. Anxiety -prn ativan 8. Nicotine dependence -on Nicotine patch 9. Cholangitis -s/p ERCP with metallic stent placement, there were pigmented stones noted and not all were cleared. Plan: Spoke with pt about decreasing pain meds so she can be discharged. Increase PPI to bid Low fat diet, education provided [facility] with Dr Samuels. Discussed with pt. Will need stent removed in 3 months Pain management and prn anti emetics Continue abx Pt examined and POC discussed with Dr. Samuels Consultation Date/Type/Reason Admit Date/Time Nov 16, 2018 at 22:26 Initial Consult Date Date/Time of Note DATE: 11/28/18 TIME: 16:42 Exam/Review of Systems Exam Vitals Vital Signs Date Temp Pulse Resp B/P (MAP) Pulse Ox O2 O2 Flow FiO2 Time Delivery Rate 11/28/18 98.3 79 18 136/80 97 16:12 (98) 11/26/18 Room Air 02:00 Intake and Output 11/27/18 11/27/18 11/28/18 1515:00 23:00 07:00 IntakeIntake Total 2000 ml 760 ml 960 ml BalanceBalance 2000 ml 760 ml 960 ml Constitutional: alert, oriented Psych: no complaints Head: normocephalic Eyes: nl sclera, PERRL ENMT: mucosa pink and moist Respiratory: clear to auscultation Cardiovascular: regular rate and rhythm Gastrointestinal: soft, non-tender, bowel sounds Musculoskeletal: nl gait and stance Extremities: normal pulses 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: nl mental status Results Result Diagram: 11/27/18 0442 11/28/18 0445 Results 24hrs Laboratory Tests Test 11/28/18 04:45 Sodium Level 139 Potassium Level 4.2 Chloride Level 106 Carbon Dioxide Level 23 Anion Gap 10 Blood Urea Nitrogen 5 L Creatinine 0.53 Est Glomerular Filtrat Rate mL/min > 60 Glucose Level 165 Calcium Level 10.0 Total Bilirubin 0.1 L Direct Bilirubin 0.00 Indirect Bilirubin 0.1 Aspartate Amino Transf (AST/SGOT) 30 Alanine Aminotransferase (ALT/SGPT) 42 Alkaline Phosphatase 121 Total Protein 7.1 Albumin 3.8 Globulin 3.30 H Albumin/Globulin Ratio 1.15 Medications Medication Current Medications IV Flush (NS 3 ml) 3 ml PER PROTOCOL IV ; Start 11/16/18 at 23:00 Acetaminophen (Tylenol Tab) 650 mg Q6H PRN PO .PAIN 1-3 OR TEMP; Start 11/16/18 at 23:00 Enoxaparin Sodium (Lovenox) 30 mg DAILY SC Last administered on 11/28/18 08:43; Admin Dose 30 MG; Start 11/17/18 at 09:00 Ondansetron HCl (Zofran Inj) 4 mg Q4 PRN IV NAUSEA/VOMITING Last administered on 11/28/18 11:10; Admin Dose 4 MG; Start 11/17/18 at 02:00 Hydromorphone HCl (Dilaudid) 1 mg Q4H PRN IV SEVERE PAIN LEVEL 7-10 Last administered on 11/28/18 16:07; Admin Dose 1 MG; Start 11/17/18 at 02:00 Nicotine (Nicoderm 14 Mg/ 24hr) 1 patch DAILY TRANSDERM Last administered on 11/28/18 08:41; Admin Dose 1 PATCH; Start 11/17/18 at 14:30 Metoclopramide HCl (Reglan) 10 mg Q6H PRN IV NAUSEA AND/OR VOMITING Last administered on 11/26/18 05:21; Admin Dose 10 MG; Start 11/17/18 at 13:00 Lorazepam (Ativan) 0.5 mg Q6H PRN PO ANXIETY Last administered on 11/27/18 17:16; Admin Dose 0.5 MG; Start 11/17/18 at 13:00 Potassium Chloride 40 meq/ Dextrose/Sodium Chloride 1,000 ml @ 70 mls/hr [id number] IV Last administered on 11/28/18 04:55; Admin Dose 70 MLS/HR; Start 11/17/18 at 14:30 Acetaminophen/ Hydrocodone Bitart ([place] (5/325)) 1 tab Q4H PRN PO MODERATE PAIN LEVEL 4-6 Last administered on 11/28/18 13:35; Admin Dose 1 TAB; Start 11/20/18 at 14:00 Amylase/Lipase/ Protease ([place] ([id number])) 1 cap WITH MEALS PO Last administered on 11/28/18 13:35; Admin Dose 1 CAP; Start 11/22/18 at 21:00 Pantoprazole (Protonix Iv) 40 mg BID IV Last administered on 11/28/18 08:40; Admin Dose 40 MG; Start 11/27/18 at 21:00 Guaifenesin/ Codeine Phosphate (Robitussin Ac Liquid Cup) 5 ml BID PRN PO COUGH; Start 11/27/18 at 16:30 [place] SURESH Nov 28, 2018 16:42
--- NOTE | 2018-11-28 16:49 | PN ---
Date/Time of Note Date/Time of Note DATE: 11/24/18 TIME: 18:16 Assessment/Plan VTE Prophylaxis Risk score (from Ns)>0 risk: 1 SCD applied (from Ns): No SCD contraindicated: other Pharmacological prophylaxis: other Pharm contraindication: other Lines/Catheters IV [facility]atheter Type (from [facility]): Peripheral IV Assessment/Plan Assessment/Plan -S/P ERCP, removal of the pigmented stone and placement of self-expanding metallic stent for biliary stricture on 11/19/18. -Abdominal pain, nausea and vomiting. Keep patient n.p.o. Dilaudid as needed for pain and Zofran as needed for nausea. Dr. Samuels is following in gastroenterology consultation. -Transaminitis -Status post ERCP, sphincterotomy and stent placement. Status post ERCP, removal of the biliary stent, removal of sludge by Dr. Samuels on 06/18/2018. -History of GERD, continue Protonix. -Anxiety, continue Ativan as needed -Tobacco dependence, cessation is strongly advised, continue nicotine patch. -History of chronic pancreatitis Result Diagram: 11/21/18 0457 11/21/18 0457 Subjective 24 Hr Interval Summary ENT: no complaints Respiratory: no complaints Cardiovascular: no complaints Gastrointestinal: pain Genitourinary: no complaints Musculoskeletal: no complaints Skin: no complaints Neurologic: no complaints Endocrine: no complaints Psychological: nl mood/affect Immunologic: no complaints Exam/Review of Systems Exam Vitals Vital Signs Date Temp Pulse Resp B/P (MAP) Pulse Ox O2 O2 Flow FiO2 Time Delivery Rate 11/24/18 98.5 81 16 131/84 100 14:36 (100) 11/22/18 Room Air 14:35 Intake and Output 11/23/18 11/23/18 11/24/18 1515:00 23:00 07:00 IntakeIntake Total 1360 ml 1450 ml 580 ml BalanceBalance 1360 ml 1450 ml 580 ml Constitutional: alert Psych: nl mood/affect Eyes: nl lids ENMT: nl external ears & nose Neck: non-tender Respiratory: clear to auscultation Cardiovascular: nl pulses Gastrointestinal: soft, tender Musculoskeletal: nl extremities to inspection Extremities: normal pulses 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: nl mental status Skin: nl turgor Lymph: nontender Medications Medication Current Medications IV Flush (NS 3 ml) 3 ml PER PROTOCOL IV ; Start 11/16/18 at 23:00 Acetaminophen (Tylenol Tab) 650 mg Q6H PRN PO .PAIN 1-3 OR TEMP; Start 11/16/18 at 23:00 Enoxaparin Sodium (Lovenox) 30 mg DAILY SC Last administered on 11/24/18 08:01; Admin Dose 30 MG; Start 11/17/18 at 09:00 Ondansetron HCl (Zofran Inj) 4 mg Q4 PRN IV NAUSEA/VOMITING Last administered on 11/24/18 13:22; Admin Dose 4 MG; Start 11/17/18 at 02:00 Hydromorphone HCl (Dilaudid) 1 mg Q4H PRN IV SEVERE PAIN LEVEL 7-10 Last administered on 11/24/18 14:01; Admin Dose 1 MG; Start 11/17/18 at 02:00 Pantoprazole (Protonix Iv) 40 mg DAILY@06 IV Last administered on 11/24/18 05:39; Admin Dose 40 MG; Start 11/17/18 at 14:00 Nicotine (Nicoderm 14 Mg/ 24hr) 1 patch DAILY TRANSDERM Last administered on 11/24/18 08:00; Admin Dose 1 PATCH; Start 11/17/18 at 14:30 Metoclopramide HCl (Reglan) 10 mg Q6H PRN IV NAUSEA AND/OR VOMITING Last administered on 11/24/18 16:02; Admin Dose 10 MG; Start 11/17/18 at 13:00 Lorazepam (Ativan) 0.5 mg Q6H PRN PO ANXIETY Last administered on 11/24/18 08:12; Admin Dose 0.5 MG; Start 11/17/18 at 13:00 Potassium Chloride 40 meq/ Dextrose/Sodium Chloride 1,000 ml @ 70 mls/hr [id number] IV Last administered on 11/24/18 16:03; Admin Dose 70 MLS/HR; Start 11/17/18 at 14:30 Ciprofloxacin/ Dextrose 200 ml @ 200 mls/hr Q12 IVPB Last administered on 11/24/18 08:00; Admin Dose 200 MLS/HR; Start 11/20/18 at 11:00 Acetaminophen/ Hydrocodone Bitart ([place] (5/325)) 1 tab Q4H PRN PO MODERATE PAIN LEVEL 4-6 Last administered on 4/23/19at 16:02; Admin Dose 1 TAB; Start at 14:00 Amylase/Lipase/ Protease (Creon ([id number])) 1 cap WITH MEALS PO Last administered on 11/24/18at 17:50; Admin Dose 1 CAP; Start 11/22/18 at 21:00 LANDRY WOODARD Nov 24, 2018 18:27
--- NOTE | 2018-11-28 16:54 | PN ---
Date/Time of Note Date/Time of Note DATE: 11/28/18 TIME: 16:51 Assessment/Plan VTE Prophylaxis Risk score (from Ns)>0 risk: 1 SCD applied (from Ns): No SCD contraindicated: other Pharmacological prophylaxis: other Pharm contraindication: other Lines/Catheters IV C[facility]ter Type (from [facility]): Peripheral IV Urinary Cath still in place: No Assessment/Plan Assessment/Plan -S/P ERCP, removal of the pigmented stone and placement of self-expanding metallic stent for biliary stricture on 11/19/18. -Abdominal pain, nausea and vomiting. Keep patient n.p.o. Dilaudid as needed for pain and Zofran as needed for nausea. Dr. Samuels is following in gastroenterology consultation. -Transaminitis -Status post ERCP, sphincterotomy and stent placement. Status post ERCP, removal of the biliary stent, removal of sludge by Dr. Samuels on 06/18/2018. -History of GERD, continue Protonix. -Anxiety, continue Ativan as needed -Tobacco dependence, cessation is strongly advised, continue nicotine patch. -History of chronic pancreatitis Result Diagram: 11/27/182 11/28/18 0445 Results 24hrs Laboratory Tests Test 11/28/18 04:45 Sodium Level 139 Potassium Level 4.2 Chloride Level 106 Carbon Dioxide Level 23 Anion Gap 10 Blood Urea Nitrogen 5 L Creatinine 0.53 Est Glomerular Filtrat Rate mL/min > 60 Glucose Level 165 Calcium Level 10.0 Total Bilirubin 0.1 L Direct Bilirubin 0.00 Indirect Bilirubin 0.1 Aspartate Amino Transf (AST/SGOT) 30 Alanine Aminotransferase (ALT/SGPT) 42 Alkaline Phosphatase 121 Total Protein 7.1 Albumin 3.8 Globulin 3.30 H Albumin/Globulin Ratio 1.15 Exam/Review of Systems Exam Vitals Vital Signs Date Temp Pulse Resp B/P (MAP) Pulse Ox O2 O2 Flow FiO2 Time Delivery Rate 11/28/18 98.3 79 18 136/80 97 16:12 (98) 11/26/18 Room Air 02:00 Intake and Output 11/27/18 11/27/18 11/28/18 1515:00 23:00 07:00 IntakeIntake Total 2000 ml 760 ml 960 ml BalanceBalance 2000 ml 760 ml 960 ml Constitutional: alert, well developed Psych: nl mood/affect Head: normocephalic Eyes: nl lids, nl sclera ENMT: nl external ears & nose Respiratory: diminished breath sounds Cardiovascular: nl pulses, other (s1) Gastrointestinal: soft, tender Musculoskeletal: nl extremities to inspection Extremities: normal pulses 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: nl mental status, nl speech Skin: nl turgor Lymph: nontender Results Results 24hrs Laboratory Tests Test 11/28/18 04:45 Sodium Level 139 Potassium Level 4.2 Chloride Level 106 Carbon Dioxide Level 23 Anion Gap 10 Blood Urea Nitrogen 5 L Creatinine 0.53 Est Glomerular Filtrat Rate mL/min > 60 Glucose Level 165 Calcium Level 10.0 Total Bilirubin 0.1 L Direct Bilirubin 0.00 Indirect Bilirubin 0.1 Aspartate Amino Transf (AST/SGOT) 30 Alanine Aminotransferase (ALT/SGPT) 42 Alkaline Phosphatase 121 Total Protein 7.1 Albumin 3.8 Globulin 3.30 H Albumin/Globulin Ratio 1.15 Medications Medication Current Medications IV Flush (NS 3 ml) 3 ml PER PROTOCOL IV ; Start 11/16/18 at 23:00 Acetaminophen (Tylenol Tab) 650 mg Q6H PRN PO .PAIN 1-3 OR TEMP; Start 11/16/18 at 23:00 Enoxaparin Sodium (Lovenox) 30 mg DAILY SC Last administered on 11/28/18at 08:43; Admin Dose 30 MG; Start 11/17/18 at 09:00 Ondansetron HCl (Zofran Inj) 4 mg Q4 PRN IV NAUSEA/VOMITING Last administered on 11/28/18at 11:10; Admin Dose 4 MG; Start 11/17/18 at 02:00 Hydromorphone HCl (Dilaudid) 1 mg Q4H PRN IV SEVERE PAIN LEVEL 7-10 Last administered on 11/28/18at 16:07; Admin Dose 1 MG; Start 11/17/18 at 02:00 Nicotine (Nicoderm 14 Mg/ 24hr) 1 patch DAILY TRANSDERM Last administered on 11/28/18at 08:41; Admin Dose 1 PATCH; Start 11/17/18 at 14:30 Metoclopramide HCl (Reglan) 10 mg Q6H PRN IV NAUSEA AND/OR VOMITING Last administered on 11/26/18at 05:21; Admin Dose 10 MG; Start 11/17/18 at 13:00 Lorazepam (Ativan) 0.5 mg Q6H PRN PO ANXIETY Last administered on 11/27/18 17:16; Admin Dose 0.5 MG; Start 11/17/18 at 13:00 Potassium Chloride 40 meq/ Dextrose/Sodium Chloride 1,000 ml @ 70 mls/hr [id number] IV Last administered on 11/28/18 04:55; Admin Dose 70 MLS/HR; Start 11/17/18 at 14:30 Acetaminophen/ Hydrocodone Bitart ([place] (5/325)) 1 tab Q4H PRN PO MODERATE PAIN LEVEL 4-6 Last administered on 11/28/18 13:35; Admin Dose 1 TAB; Start 11/20/18 at 14:00 Amylase/Lipase/ Protease (Creon ([id number])) 1 cap WITH MEALS PO Last administered on 11/28/18 13:35; Admin Dose 1 CAP; Start 11/22/18 at 21:00 Pantoprazole (Protonix Iv) 40 mg BID IV Last administered on 11/28/18 08:40; Admin Dose 40 MG; Start 11/27/18 at 21:00 Guaifenesin/ Codeine Phosphate (Robitussin Ac Liquid Cup) 5 ml BID PRN PO COUGH ; Start 11/27/18 at 16:30 LANDRY WOODARD Nov 28, 2018 16:54
[2018-11-28 20:00] VITALS: BP 139/84; PULSE 76; RESP 18
[2018-11-28] MEDS: LORAZEPAM 0.5 MG TAB PO PRN (20:56)
[2018-11-29] MEDS: HYDROCODONE/APAP (5/325) TAB PO PRN ×4 (00:25→15:04)
[2018-11-29 02:00] VITALS: BP 129/75; PULSE 68; RESP 18
[2018-11-29 08:01] VITALS: BP 130/62; PULSE 75; RESP 20
[2018-11-29] MEDS: CREON (24K-76K-120K) 1 CAP PO SCH ×3 (08:55→17:33)
[2018-11-29] MEDS: ONDANSETRON 4 MG INJ IV PRN (08:55)
[2018-11-29] MEDS: PANTOPRAZOLE 40 MG INJ IV SCH (08:55)
[2018-11-29] MEDS: ENOXAPARIN 30 MG/0.3 ML SYG SC SCH (09:00)
[2018-11-29] MEDS: LORAZEPAM 0.5 MG TAB PO PRN (09:00)
[2018-11-29] MEDS: NICOTINE (14 MG/24 HR) PATCH TRANSDERM SCH (09:01)
[2018-11-29] MEDS: DEXTROSE IV SCH ×2 (09:08→12:30)
[2018-11-29] MEDS: NACL IV SCH ×2 (09:08→12:30)
[2018-11-29] MEDS: POTASSIUM CHLORIDE IV SCH ×2 (09:08→12:30)
--- NOTE | 2018-11-29 11:52 | PDOCDIS ---
Discharge Instructions CONDITION [id number] Patient Condition: [id number] Stable HOME CARE INSTRUCTIONS: [id number] Diet Instructions: [id number] Regular ACTIVITY: [id number] Activity Restrictions: [id number] Slowly Increase Activity Rest between Activity Avoid heavy lifting Do not operate Machinery Do not operate Power Tool Avoid Heavy Housework [id number] Bathing Restrictions: [id number] Sponge Bath FOLLOW UP/APPOINTMENTS Follow-up Plan FU with primary x 1 wek Fu with GI as recommended Call 911 or got to the nearest hospital if symptoms get worse- patient verbalized understanding dc instruction LANDRY Lake Dr Nov 29, 2018 11:52
--- NOTE | 2018-11-29 11:52 | DS ---
Date/Time of Note Date/Time of Note DATE: 11/29/18 TIME: 11:52 Discharge Summary Admission/Discharge Info Admit Date/Time Nov 16, 2018 at 22:26 Discharge Date/Time Home Meds Active Scripts Hydrocodone/Acetaminophen ([place] 10-325 Tablet) 1 Each Tablet, 1 TAB PO Q6H PRN for PAIN, #9 TAB Prov:ROSELIA [id number] A. DO 09/01/18 Ondansetron (Ondansetron Odt) 4 Mg Tab.rapdis, 4 MG PO Q6H PRN for NAUSEA AND/OR VOMITING, #10 TAB Prov:LEKKOS,APOSTOLOS A. DO 09/01/18 Pantoprazole* (Protonix*) 40 Mg Tablet.dr, 40 MG PO AC BREAKFAST for 30 Days, TAB Prov:BRADLEY STROUD 06/23/18 Hydrocodone/Acetaminophen ([place] 5-325 Tablet) 1 Each Tablet, 1 EACH PO Q4 PRN for PAIN, #30 TAB Prov:BRADLEY STROUD 06/23/18 Reported Medications Diphenhydramine Hcl* (Benadryl*) 25 Mg Cap, 25 MG PO Q6H PRN for ITCHING, CAP 11/16/18 Multivitamins* (Theragran*) 1 Tab Tab, 1 TAB PO DAILY, TAB 11/16/18 Ascorbic Acid* (Vitamin C*) 500 Mg Capsule.sa, 500 MG PO DAILY, CAP 11/16/18 Hydroxyzine Hcl* (Hydroxyzine Hcl*) 25 Mg Tablet, 25 MG PO Q8H 11/16/18 Chlordiazepoxide/Clidinium Br (Chlordiazepoxide-Clidinium Cap) 1 Each Capsule, 1 TAB PO DAILY PRN for DIARRHEA 09/01/18 Temazepam* (Temazepam*) 15 Mg Capsule, 15 MG PO HS MAY REPEAT X 1 PRN for INSOMNIA, CAP 09/01/18 Loperamide Hcl* (Loperamide Hcl*) 2 Mg Cap, 2 MG PO DAILY PRN for DIARRHEA, CAP 09/01/18 Nmbrkq-Tgchdxmy-Opintpg* (Agustín HENRY* 24,000) 24,000 L-76,000-120,000 Unit Capsule.dr, 1 CAP PO WITH MEALS, CAP 09/01/18 Nicotine* (Nicotine* Patch) 21 mg/day Patch, 1 EACH TD DAILY, PATCH 06/18/18 Follow-up Plan FU with primary x 1 wek Fu with GI as recommended Call 911 or got to the nearest hospital if symptoms get worse- patient verbalized understanding dc instruction Devin Small Primary Care Provider [facility] LANDRY WOODARD Nov 29, 2018 11:52
--- NOTE | 2018-11-29 13:02 | CONS ---
Assessment/Plan Assessment/Plan Hospital Course (Demo Recall) 48yo female with h/o chronic pancreatitis presents with abd pain and nausea Interval hx: Pt feeling better overall. LFT wnl. Took less medication. Still has intermittent nausea and epigastric pain 1. Abd pain -improved 2. Nausea -improved 3. Transaminitis -resolved 4. Chronic pancreatitis 5. S/P ERCP-11/19/2018 - sphincterotomy with removal of stent in , 6. H/O GERD -PPI for GI prophylaxis 7. Anxiety -prn ativan 8. Nicotine dependence -on Nicotine patch 9. Cholangitis -s/p ERCP with metallic stent placement, there were pigmented stones noted and not all were cleared. Plan: Spoke with pt about decreasing pain meds so she can be discharged. Increase PPI to bid Low fat diet, education provided [facility] with Dr Samuels. Discussed with pt. Will need stent removed in 3 months Pain management and prn anti emetics Continue abx Pt examined and POC discussed with Dr. Samuels Consultation Date/Type/Reason Admit Date/Time Nov 16, 2018 at 22:26 Initial Consult Date Date/Time of Note DATE: 11/29/18 TIME: 13:01 Exam/Review of Systems Exam Vitals Vital Signs Date Temp Pulse Resp B/P (MAP) Pulse Ox O2 O2 Flow FiO2 Time Delivery Rate 11/29/18 97.8 75 20 130/62 99 08:01 (84) 11/26/18 Room Air 02:00 Intake and Output 11/28/18 11/28/18 11/29/18 1515:00 23:00 07:00 IntakeIntake Total 920 ml 1680 ml 700 ml BalanceBalance 920 ml 1680 ml 700 ml Constitutional: alert, oriented Psych: no complaints Head: normocephalic Eyes: nl sclera, PERRL ENMT: mucosa pink and moist Respiratory: normal air movement Cardiovascular: regular rate and rhythm Gastrointestinal: soft, bowel sounds, tender Musculoskeletal: nl gait and stance 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: nl mental status Results Result Diagram: 11/27/18 0442 11/28/18 0445 Medications Medication Current Medications IV Flush (NS 3 ml) 3 ml PER PROTOCOL IV ; Start 11/16/18 at 23:00 Acetaminophen (Tylenol Tab) 650 mg Q6H PRN PO .PAIN 1-3 OR TEMP; Start 11/16/18 at 23:00 Enoxaparin Sodium (Lovenox) 30 mg DAILY SC Last administered on 11/29/18 09:00; Admin Dose 30 MG; Start 11/17/18 at 09:00 Ondansetron HCl (Zofran Inj) 4 mg Q4 PRN IV NAUSEA/VOMITING Last administered on 11/29/18 08:55; Admin Dose 4 MG; Start 11/17/18 at 02:00 Hydromorphone HCl (Dilaudid) 1 mg Q4H PRN IV SEVERE PAIN LEVEL 7-10 Last administered on 11/28/18 16:07; Admin Dose 1 MG; Start 11/17/18 at 02:00 Nicotine (Nicoderm 14 Mg/ 24hr) 1 patch DAILY TRANSDERM Last administered on 11/29/18 09:01; Admin Dose 1 PATCH; Start 11/17/18 at 14:30 Metoclopramide HCl (Reglan) 10 mg Q6H PRN IV NAUSEA AND/OR VOMITING Last administered on 11/26/18 05:21; Admin Dose 10 MG; Start 11/17/18 at 13:00 Lorazepam (Ativan) 0.5 mg Q6H PRN PO ANXIETY Last administered on 11/29/18 09:00; Admin Dose 0.5 MG; Start 11/17/18 at 13:00 Potassium Chloride 40 meq/ Dextrose/Sodium Chloride 1,000 ml @ 70 mls/hr [id number] IV Last administered on 11/29/18 09:08; Admin Dose 70 MLS/HR; Start 11/17/18 at 14:30 Acetaminophen/ Hydrocodone Bitart ([place] (5/325)) 1 tab Q4H PRN PO MODERATE P AIN LEVEL 4-6 Last administered on 11/29/18 10:40; Admin Dose 1 TAB; Start 11/20/18 at 14:00 Amylase/Lipase/ Protease (Creon ([id number])) 1 cap WITH MEALS PO Last administered on 11/29/18 12:29; Admin Dose 1 CAP; Start 11/22/18 at 21:00 Pantoprazole (Protonix Iv) 40 mg BID IV Last administered on 11/29/18 08:55; Admin Dose 40 MG; Start 11/27/18 at 21:00 Guaifenesin/ Codeine Phosphate (Robitussin Ac Liquid Cup) 5 ml BID PRN PO COUGH; Start 11/27/18 at 16:30 [place] SURESH Nov 29, 2018 13:02
[2018-11-29 13:42] VITALS: BP 142/82; PULSE 88; RESP 20
[2018-11-29] MEDS ORDERED: HYDR-3601 PO (17:28)
== END 2018-11-29 19:02 | disposition home or self-care (01) | DRG 445 ==
LOC: E/R 18:21 → 2NE 22:26
PROVIDERS: ADMIT Internal Medicine; ATTEND Internal Medicine
PROC: 0F798DZ Dilation of Common Bile Duct with Intraluminal Device, Via Natural or Artificial Opening Endoscopic (ICD-10-PCS; 2018-11-19)
PROC: 0FC98ZZ Extirpation of Matter from Common Bile Duct, Via Natural or Artificial Opening Endoscopic (ICD-10-PCS; principal; 2018-11-19 16:00)
DX: K80.31 Calculus of bile duct with cholangitis, unspecified, with obstruction (principal); K86.1 Other chronic pancreatitis; K21.9 Gastro-esophageal reflux disease without esophagitis; F41.9 Anxiety disorder, unspecified; F17.200 Nicotine dependence, unspecified, uncomplicated; R74.0 Nonspecific elevation of levels of transaminase and lactic acid dehydrogenase [LDH]
CPT/HCPCS: 36415; 74176; 74181; 74330; 80048; 80053; 80076; 81001; 81025; 83036; 83690; 85025; 96374; 96375; C2617; C9113; J0744; J1100; J1170; J1650; J2270; J2405; J2710; J2765; J3010; J3480; J7030; Q9967

== ENCOUNTER 2018-12-30 18:22 | Emergency (ER) | payer OTHER ==
[~2018-12-30] VITALS: Wt 62.1 kg
[~2018-12-30 18:22] MED LIST changes: +ASCO500C7 PO; +BEN25 PO; +HYDR-3601 PO; +HYDR-843 PO; +MULTI PO
[2018-12-30] MEDS ORDERED: ONDANSETRON 4 MG INJ IV STA (19:36)
[2018-12-30] MEDS ORDERED: morphine 4 MG/ML VIAL IV STA (19:36)
[2018-12-30] MEDS ORDERED: SOD CHLORIDE 0.9% 1,000 ML IV STA (19:36)
--- NOTE | 2018-12-30 20:40 | ERD ---
ER Documentation Chief Complaint Chief Complaint mid-AP x2wks worsening; NVD x1wk. hx pancreatitis 'feels like it again'. HPI This is a 48-year-old female with a past medical history of cholecystitis status post cholecystectomy, status post pancreatic stent placement, chronic recurrent pancreatitis, GERD, previous who is currently presenting for 1 week of waxing and waning moderate sharp left upper quadrant abdominal pain radiating to the back with episodes of nausea, nonbilious nonbloody yellow vomiting, and loose watery brown nonbloody diarrhea. She does not endorse eating anything out of the ordinary. She does not endorse any alleviating or exacerbating factors. The patient reports that her symptoms flareup approximately once a month. She denies dysuria or hematuria or urgency or frequency. The patient denies fever or chills. The patient has had no headache or vision changes. The patient does not endorse neck or back pain. The patient denies lightheadedness or dizziness. The patient has had no chest pain or trouble breathing. The patient has had no focal deficits. The patient has had no weakness or numbness or tingling to the face or extremities. ROS All systems reviewed and are negative except as per history of present illness. Medications Home Meds Active Scripts Hydrocodone Bit-Acetaminophen (Hydrocodone Bit-APAP) 5-325MG Tablet, 1 TAB PO Q6 PRN for MODERATE PAIN LEVEL 4-6, #14 TAB Prov:LANDRY WOODARD 11/29/18 Hydrocodone/Acetaminophen ([place] 10-325 Tablet) 1 Each Tablet, 1 TAB PO Q6H PRN for PAIN, #9 TAB Prov:MARION RAWLS. DO 09/01/18 Ondansetron (Ondansetron Odt) 4 Mg Tab.rapdis, 4 MG PO Q6H PRN for NAUSEA AND/OR VOMITING, #10 TAB Prov:ROSELIA RAWLSSTJUNGS A. DO 09/01/18 Pantoprazole* (Protonix*) 40 Mg Tablet.dr, 40 MG PO AC BREAKFAST for 30 Days, T AB Prov:BRADLEY STROUD 06/23/18 Hydrocodone/Acetaminophen ([place] 5-325 Tablet) 1 Each Tablet, 1 EACH PO Q4 PRN for PAIN, #30 TAB Prov:BRADLEY STROUD 06/23/18 Reported Medications Diphenhydramine Hcl* (Benadryl*) 25 Mg Cap, 25 MG PO Q6H PRN for ITCHING, CAP 11/16/18 Multivitamins* (Theragran*) 1 Tab Tab, 1 TAB PO DAILY, TAB 11/16/18 Ascorbic Acid* (Vitamin C*) 500 Mg Capsule.sa, 500 MG PO DAILY, CAP 11/16/18 Hydroxyzine Hcl* (Hydroxyzine Hcl*) 25 Mg Tablet, 25 MG PO Q8H 11/16/18 Chlordiazepoxide/Clidinium Br (Chlordiazepoxide-Clidinium Cap) 1 Each Capsule, 1 TAB PO DAILY PRN for DIARRHEA 09/01/18 Temazepam* (Temazepam*) 15 Mg Capsule, 15 MG PO HS MAY REPEAT X 1 PRN for INSOMNIA, CAP 09/01/18 Loperamide Hcl* (Loperamide Hcl*) 2 Mg Cap, 2 MG PO DAILY PRN for DIARRHEA, CAP 09/01/18 Cvplya-Jfyojsfy-Tezbumg* (Agustín HENRY* 24,000) 24,000 L-76,000-120,000 Unit Capsule.dr, 1 CAP PO WITH MEALS, CAP 09/01/18 Nicotine* (Nicotine* Patch) 21 mg/day Patch, 1 EACH TD DAILY, PATCH 06/18/18 Allergies Allergies: Coded Allergies: No Known Allergies (Unverified Allergy, Unknown, 09/01/18) sulfamethoxazole (Unverified Adverse Reaction, Unknown, 09/01/18) PMhx/Soc History of Surgery: Yes (CS,LAP CHOLECYSTECTOMY,PANCREATIC STENT PLACEMENT) Anesthesia Reaction: No Hx 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 Disorder: No Hx Respiratory Disorders: No Hx Cardiac Disorders: No Hx Psychiatric Problems: No Hx Miscellaneous Medical Probl: Yes (Gallstone pancreatitis, now chronic pancreatitis, cholangitis, biliary stricture status post stenting) Hx Alcohol Use: Yes Hx Substance Use: No Hx Tobacco Use: Yes FmHx Family History: No diabetes Physical Exam Vitals Vital Signs Date Temp Pulse Resp B/P (MAP) Pulse Ox O2 O2 Flow FiO2 Time Delivery Rate 12/30/18 76 14 123/98 97 Room Air 22:30 (106) 12/30/18 97.9 82 18 131/94 97 Room Air 19:30 (106) 12/30/18 98.2 84 22 149/87 96 18:29 (107) Physical Exam Const: No acute distress Head: Atraumatic Eyes: Normal Conjunctiva ENT: Normal External Ears, Nose and Mouth. Neck: Full range of motion. No meningismus. Resp: Clear to auscultation bilaterally Cardio: Regular rate and rhythm, no murmurs Abd: Soft, non distended. Left upper quadrant tenderness, mild, with slight voluntary guarding. No involuntary guarding or rebound. Normal bowel sounds Skin: No petechiae or rashes Back: No midline or flank tenderness Ext: No cyanosis, or edema Neur: Awake and alert Psych: Normal Mood and Affect Result Diagram: 12/30/18195512/30/182050 Results 24 hrs Laboratory Tests Test 12/30/18 19:56 12/30/18 20:51 White Blood Count 8.5 10^3/ul Red Blood Count 4.18 10^6/ul Hemoglobin 12.7 g/dl Hematocrit 38.5 % Mean Corpuscular Volume 92.1 fl Mean Corpuscular Hemoglobin 30.4 pg Mean Corpuscular Hemoglobin Concent 33.0 g/dl Red Cell Distribution Width 13.7 % Platelet Count 293 10^3/UL Mean Platelet Volume 11.0 fl Immature Granulocytes % 0.400 % Neutrophils % 49.2 % Lymphocytes % 43.7 % Monocytes % 5.3 % Eosinophils % 0.8 % Basophils % 0.6 % Nucleated Red Blood Cells % 0.0 /100WBC Immature Granulocytes # 0.030 10^3/ul Neutrophils # 4.2 10^3/ul Lymphocytes # 3.7 10^3/ul Monocytes # 0.5 10^3/ul Eosinophils # 0.1 10^3/ul Basophils # 0.1 10^3/ul Nucleated Red Blood Cells # 0.0 10^3/ul Urine Color YELLOW Urine Clarity SLIGHTLY CLOUDY Urine pH 6.0 Urine Specific [place] 1.021 Urine Ketones NEGATIVE mg/dL Urine Nitrite NEGATIVE mg/dL Urine Bilirubin NEGATIVE mg/dL Urine Urobilinogen NEGATIVE mg/dL Urine Leukocyte Esterase TRACE Obdulio/ul Urine Microscopic RBC 1 /HPF Urine Microscopic WBC 7 /HPF Urine Hemoglobin NEGATIVE mg/dL Urine Glucose NEGATIVE mg/dL Urine Total Protein NEGATIVE mg/dl Sodium Level 140 mmol/L Potassium Level 3.2 mmol/L Chloride Level 105 mmol/L Carbon Dioxide Level 26 mmol/L Anion Gap 9 Blood Urea Nitrogen 12 mg/dl Creatinine 0.61 mg/dl Est Glomerular Filtrat Rate mL/min > 60 mL/min Glucose Level 93 mg/dl Calcium Level 9.0 mg/dl Total Bilirubin 0.8 mg/dl Direct Bilirubin 0.00 mg/dl Indirect Bilirubin 0.8 mg/dl Aspartate Amino Transf (AST/SGOT) 25 IU/L Alanine Aminotransferase (ALT/SGPT) 23 IU/L Alkaline Phosphatase 97 IU/L Total Protein 7.3 g/dl Albumin 4.0 g/dl Globulin 3.30 g/dl Albumin/Globulin Ratio 1.21 Lipase 28 U/L Current Medications Medications Dose Sig/Dax Start Time Status Last (Trade) Ordered Route PRN Stop Time Admin Dose Reason Admin Sodium 1,000 ml @ Q1H STAT 12/30/18 DC 12/30/18 Chloride 1,000 mls/hr IV 19:36 20:00 12/30/18 20:35 Morphine 4 mg ONCE STAT 12/30/18 DC 12/30/18 Sulfate IV 19:36 20:00 (morphine) 12/30/18 19:37 Ondansetron 4 mg ONCE STAT 12/30/18 DC 12/30/18 HCl (Zofran IV 19:36 20:00 Inj) 12/30/18 19:37 0.5 mg ONCE ONCE 12/30/18 DC 12/30/18 Hydromorphone IV 21:45 21:54 HCl 12/30/18 21:46 (Dilaudid) Procedures/MDM MDM The patient's presentation warrants further investigation. Previous medical records, if available, were reviewed. LABS The patient's laboratory testing was obtained and reviewed. No emergent treatment was required unless described below. CBC: No E/o systemic infection or severe anemia or thrombocytopenia Chemistry: No E/o severe acidosis or alkalosis or renal failure or liver di sease or diabetic ketoacidosis. Mild hypokalemia. Lipase: No E/o pancreatitis Urine: No E/o acute infection or hematuria TREATMENT/DISPOSITION The patient presents for left upper quadrant abdominal pain, nausea, vomiting and diarrhea. The patient's symptoms are consistent with exacerbated chronic pancreatitis. The patient's lipase is currently within normal limits. This could be true in a patient with chronic pancreatitis he was having an exacerbated episode. That said, the patient was treated symptomatically with morphine and Zofran in the emergency department with significant improvement of her pain. At this time, I do not feel the patient requires admission for her symptoms. The patient does not have any evidence of peritonitis. The patient does not have clinical symptoms concerning for mesenteric ischemia or ischemic colitis. The patient does not have right upper quadrant tenderness, and I have low suspicion for gallstones, cholecystitis or biliary colic. The patient does not have any epigastric pain. I have low suspicion for gastritis, PUD or GERD. The patient does not have any right lower quadrant tenderness, or periumbilical tenderness. I have low suspicion for appendicitis. The patient does not have suprapubic tenderness. I have decreased suspicion for cystitis. The patient does not have any left lower quadrant tenderness, and I have low suspicion for diverticulosis or diverticulitis. The patient does not have any flank tenderness. The patient does not have gross hematuria. I have decreased suspicion for nephrolithiasis or renal colic. The patient does not have any palpable pulsatile mass or severe abdominal pain radiating to the back. I have low suspicion for aortic aneurysm, dissection or rupture. DISCHARGE Upon reevaluation of the patient, symptoms have improved. No emergent diagnoses were identified. At this time, I feel that the patient stable for discharge. The patient was instructed to follow-up with a primary care physician in 1-3 d ays. The patient will be given strict precautions with which to return to the emergency department. Prescriptions: Zofran, oxycodone. The [facility] database was accessed. The patient last received opiate medication on December 07, 2018. She was given 5 pills. I do feel that it would be appropriate to provide the patient a short course to help with her symptoms. She understands the need to follow-up with her primary care physician for further assessment. The patient's blood pressure was elevated at greater than 120/80 while in the emergency department. The patient was otherwise stable with no evidence of hypertensive urgency or emergency. The patient does not require admission for blood pressure control. I have discussed with the patient the risks of hypertension. I have instructed the patient to return to the ER for any new or worsening symptoms including chest pain, shortness of breath, headache, blurred vision, confusion, nausea, vomiting or LOC. I have advised the patient to follow up with the primary care physician for outpatient monitoring and treatment for hypertension in 1-3 days. Disclaimer: Inadvertent spelling and grammatical errors are likely due to EHR/dictation software use and do not reflect on the overall quality of patient care. Note that the electronic time recorded on this note does not necessarily reflect the actual time of the patient encounter. Departure Diagnosis: Primary Impression: Nausea vomiting and diarrhea Additional Impressions: Chronic pancreatitis Pancreatitis type: unspecified pancreatitis type Qualified Codes: K86.1 - Other chronic pancreatitis Hypokalemia Condition: Stable Patient Instructions: Chronic Pancreatitis Additional Instructions: Thank you for for coming to [facility] for your care today. Please ask your nurse or provider if you have questions about your care today and do not leave until all your questions have been answered. Please use any medications given as directed and follow-up with your doctor (or the doctor you were referred to) in the next 1-3 days. If you do not have a primary care doctor you may follow up at the [facility] or [facility] (listed below). You may also use motrin and tylenol as needed for fever and/or pain unless instructed otherwise by your provider or nurse. Indications for more urgent follow-up have been discussed, but you may return to the Emergency Department at ANY time for any worrisome or worsening symptoms. If you have abdominal pain, please know that no test or exam you received is perfect and you should follow up within 8 hours for continued pain. If you had any imaging studies today, such as an X-Ray or CT Scan, these studies will be reviewed later by a radiologist. You will be called if there are important findings that were not identified today, so make sure the contact information you provided at registration is correct. If you received any narcotic pain control medicine today, such as Vicodin, Morphine or Dilaudid, your coordination and judgment may be affected for a number of hours. Please do not drive or operate heavy machinery, and you may want someone to assist you at home. If you were given a prescription for narcotic medication, be aware that it is very addictive- use sparingly and only if necessary. PLEASE SEEK FURTHER EVALUATION AND MANAGEMENT AT YOUR DOCTORS OFFICE WITHIN THE NEXT 1-3 DAYS. IT IS YOUR RESPONSIBILITY TO MAKE AN APPOINTMENT FOR FOLOW-UP CARE. IF YOU HAVE A PRIMARY DOCTOR, PLEASE CALL THEIR OFFICE TO SCHEDULE AN APPOINTMENT FOR FOLLOW UP. IF YOU DO NOT HAVE A PRIMARY DOCTOR YOU CAN CALL OUR PHYSICIAN REFERRAL HOTLINE AT IF YOU CAN NOT AFFORD TO SEE A PHYSICIAN YOU CAN CHOSE FROM THE FOLLOWING [facility] CLINICS: [facility] [address] [facility] [address] [facility]. [facility] [address] [facility] [address] [facility] [address] [facility]. [facility]. [address] LINDSEY MCGARRY MD December 30, 2018 20:40
[2018-12-30] MEDS ORDERED: HYDROmorphONE 0.5 MG/0.5 ML SYG IV ONE (21:45)
[2018-12-30] MEDS ORDERED: ONDA8TAB9 PO (23:35)
[2018-12-30] MEDS ORDERED: OXYC5CAP17 PO (23:35)
[2018-12-30 23:50] VITALS: BP 137/86; PULSE 80; RESP 22
== END 2018-12-30 23:50 | disposition home or self-care (01) ==
LOC: E/R 18:22
DX: K86.1 Other chronic pancreatitis (principal); E87.6 Hypokalemia; Z87.891 Personal history of nicotine dependence
CPT/HCPCS: 36415; 80053; 81001; 83690; 85025; 96374; 96375; J1170; J2270; J2405; J7030; Z7502

== ENCOUNTER 2019-03-26 11:24 | Inpatient (IN) | payer OTHER ==
[~2019-03-26] VITALS: Ht 172.7 cm; Wt 59.3 kg
[~2019-03-26 11:24] MED LIST changes: -HYDR-3980 PO; -HYDR-4011 PO; +IBUP-1545 PO; +ONDA8TAB9 PO; +OXYC5CAP17 PO; +PANT40TA4 PO; -TEMA15CA PO
[2019-03-26 11:31] VITALS: Ht 172.7 cm; Wt 59.3 kg
[2019-03-26] MEDS ORDERED: SOD CHLORIDE 0.9% 1,000 ML IV STA (11:41)
[2019-03-26] MEDS ORDERED: morphine 4 MG/ML VIAL IV STA (11:41)
[2019-03-26] MEDS ORDERED: ONDANSETRON 4 MG INJ IV STA (11:41)
[2019-03-26] MEDS ORDERED: HYDROmorphONE 2 MG/ML SYG IV STA (12:20)
[2019-03-26] MEDS ORDERED: CEFTRIAXONE 1 GM/50 ML (PMX) 50 ML IVPB ONE (14:00)
[2019-03-26] MEDS ORDERED: ACETAMINOPHEN 325 MG TAB PO PRN (14:30)
[2019-03-26] MEDS ORDERED: ONDANSETRON 4 MG INJ IV PRN (14:30)
[2019-03-26] MEDS: HYDROmorphONE 1 MG/ML SYG IV PRN ×2 (16:36→21:58)
[2019-03-26] MEDS ORDERED: LORAZEPAM 2 MG INJ IV ONE (19:00)
[2019-03-26] MEDS: HYDROCODONE/APAP (5/325) TAB PO PRN (19:38)
[2019-03-26] MEDS: D5W-0.45 NACL + KCL 20 MEQ 1,000 ML IV SCH (19:39)
[2019-03-26 19:54] VITALS: BP 149/70; PULSE 81; RESP 18
[2019-03-26] MEDS: PANTOPRAZOLE (EC) 40 MG TAB PO SCH (20:40)
[2019-03-26] MEDS: CREON (24K-76K-120K) 1 CAP PO SCH (21:00)
[2019-03-26] MEDS: ONDANSETRON 4 MG INJ IV PRN (21:48)
[2019-03-27 02:42] VITALS: BP 135/65; PULSE 73; RESP 18
[2019-03-27] MEDS: HYDROCODONE/APAP (5/325) TAB PO PRN ×5 (04:19→20:56)
[2019-03-27] MEDS: ONDANSETRON 4 MG INJ IV PRN ×2 (05:13→18:33)
[2019-03-27] MEDS: HYDROmorphONE 1 MG/ML SYG IV PRN ×5 (05:20→22:38)
[2019-03-27 07:06] VITALS: BP 137/89; PULSE 81; RESP 14
[2019-03-27] MEDS: CREON (24K-76K-120K) 1 CAP PO SCH ×3 (08:26→21:00)
[2019-03-27] MEDS: PANTOPRAZOLE (EC) 40 MG TAB PO SCH ×2 (08:28→20:55)
[2019-03-27] MEDS: D5W-0.45 NACL + KCL 20 MEQ 1,000 ML IV SCH ×2 (10:55→23:48)
[2019-03-27] MEDS: CEFTRIAXONE 1 GM/50 ML (PMX) 50 ML IVPB SCH (10:56)
[2019-03-27] MEDS: LORAZEPAM 1 MG TAB PO PRN ×2 (11:02→23:46)
[2019-03-27 15:14] VITALS: BP 137/69; PULSE 78; RESP 17
[2019-03-27 19:59] VITALS: BP 135/65; PULSE 64; RESP 20
[2019-03-28] MEDS: ONDANSETRON 4 MG INJ IV PRN ×3 (00:56→13:25)
[2019-03-28] MEDS: HYDROCODONE/APAP (5/325) TAB PO PRN ×6 (00:57→22:56)
[2019-03-28 02:42] VITALS: BP 140/80; RESP 18
[2019-03-28] MEDS: HYDROmorphONE 1 MG/ML SYG IV PRN ×5 (04:02→19:59)
[2019-03-28 07:13] VITALS: BP 156/95; PULSE 86; RESP 18
[2019-03-28] MEDS: CREON (24K-76K-120K) 1 CAP PO SCH ×3 (07:46→19:59)
[2019-03-28] MEDS: PANTOPRAZOLE (EC) 40 MG TAB PO SCH ×2 (07:46→20:00)
[2019-03-28] MEDS: CEFTRIAXONE 1 GM/50 ML (PMX) 50 ML IVPB SCH (09:14)
[2019-03-28] MEDS: LORAZEPAM 1 MG TAB PO PRN ×2 (09:14→17:20)
[2019-03-28] MEDS: D5W-0.45 NACL + KCL 20 MEQ 1,000 ML IV SCH (15:54)
[2019-03-28 19:42] VITALS: BP 168/73; PULSE 66; RESP 18
[2019-03-28] MEDS: LOPERAMIDE 2 MG CAP PO PRN (22:55)
[2019-03-29] MEDS: HYDROmorphONE 1 MG/ML SYG IV PRN ×6 (00:13→21:46)
[2019-03-29] MEDS: ONDANSETRON 4 MG INJ IV PRN ×4 (00:58→19:56)
[2019-03-29] MEDS: LORAZEPAM 1 MG TAB PO PRN ×3 (00:58→23:51)
[2019-03-29] MEDS: HYDROCODONE/APAP (5/325) TAB PO PRN ×5 (03:09→19:57)
[2019-03-29] MEDS: D5W-0.45 NACL + KCL 20 MEQ 1,000 ML IV SCH ×3 (04:12→20:47)
[2019-03-29 08:06] VITALS: BP 118/58; PULSE 79; RESP 19
[2019-03-29] MEDS: CREON (24K-76K-120K) 1 CAP PO SCH ×3 (08:36→20:46)
[2019-03-29] MEDS: LOPERAMIDE 2 MG CAP PO PRN (08:36)
[2019-03-29] MEDS: PANTOPRAZOLE (EC) 40 MG TAB PO SCH ×2 (08:36→20:46)
[2019-03-29] MEDS: CEFTRIAXONE 1 GM/50 ML (PMX) 50 ML IVPB SCH (10:22)
[2019-03-29] MEDS: METOCLOPRAMIDE 10 MG INJ IV PRN ×2 (10:28→17:40)
[2019-03-29] MEDS: metroNIDAZOLE 500 MG TAB PO SCH ×3 (12:25→23:48)
[2019-03-29 14:33] VITALS: BP 174/104; PULSE 74; RESP 20
[2019-03-29 19:54] VITALS: BP 125/96; PULSE 72; RESP 18
[2019-03-30] MEDS: HYDROmorphONE 1 MG/ML SYG IV PRN ×5 (02:30→23:00)
[2019-03-30] MEDS: ONDANSETRON 4 MG INJ IV PRN ×4 (02:30→21:53)
[2019-03-30 02:49] VITALS: BP 136/76; PULSE 96; RESP 18
[2019-03-30] MEDS: HYDROCODONE/APAP (5/325) TAB PO PRN ×4 (04:34→21:53)
[2019-03-30] MEDS: metroNIDAZOLE 500 MG TAB PO SCH ×4 (05:07→23:00)
[2019-03-30 08:10] VITALS: BP 122/72; PULSE 88; RESP 19
[2019-03-30] MEDS: PANTOPRAZOLE (EC) 40 MG TAB PO SCH ×2 (08:28→20:18)
[2019-03-30] MEDS: CREON (24K-76K-120K) 1 CAP PO SCH ×3 (08:28→20:18)
[2019-03-30] MEDS: D5W-0.45 NACL + KCL 20 MEQ 1,000 ML IV SCH ×2 (08:30→23:02)
[2019-03-30] MEDS: CEFTRIAXONE 1 GM/50 ML (PMX) 50 ML IVPB SCH (10:00)
[2019-03-30] MEDS: LORAZEPAM 1 MG TAB PO PRN ×2 (11:36→20:18)
[2019-03-30] MEDS: VANCOMYCIN HCL 250 MG/5ML POSYG PO SCH ×3 (11:40→23:01)
[2019-03-30 14:41] VITALS: BP 120/74; PULSE 82; RESP 19
[2019-03-30 19:55] VITALS: BP 136/76; PULSE 74; RESP 18
[2019-03-31] MEDS: HYDROmorphONE 1 MG/ML SYG IV PRN ×4 (02:40→18:23)
[2019-03-31 03:00] VITALS: BP 147/82; PULSE 94; RESP 18
[2019-03-31] MEDS: LORAZEPAM 1 MG TAB PO PRN ×3 (03:50→22:36)
[2019-03-31] MEDS: ONDANSETRON 4 MG INJ IV PRN ×3 (03:50→20:48)
[2019-03-31] MEDS: metroNIDAZOLE 500 MG TAB PO SCH ×3 (05:12→18:23)
[2019-03-31] MEDS: VANCOMYCIN HCL 250 MG/5ML POSYG PO SCH ×3 (05:13→18:23)
[2019-03-31] MEDS: PANTOPRAZOLE (EC) 40 MG TAB PO SCH ×2 (07:40→20:47)
[2019-03-31] MEDS: CREON (24K-76K-120K) 1 CAP PO SCH ×3 (07:41→20:47)
[2019-03-31 08:30] VITALS: BP 132/77; PULSE 72; RESP 18
[2019-03-31] MEDS: HYDROCODONE/APAP (5/325) TAB PO PRN ×3 (10:27→20:48)
[2019-03-31] MEDS: CEFTRIAXONE 1 GM/50 ML (PMX) 50 ML IVPB SCH (10:28)
[2019-03-31] MEDS: D5W-0.45 NACL + KCL 20 MEQ 1,000 ML IV SCH (14:13)
[2019-03-31 15:29] VITALS: BP 139/68; PULSE 73; RESP 18
[2019-03-31 20:12] VITALS: BP 132/92; PULSE 71; RESP 20
[2019-04-01] MEDS: HYDROmorphONE 1 MG/ML SYG IV PRN ×5 (00:06→22:25)
[2019-04-01] MEDS: VANCOMYCIN HCL 250 MG/5ML POSYG PO SCH ×5 (00:06→23:35)
[2019-04-01] MEDS: metroNIDAZOLE 500 MG TAB PO SCH ×5 (00:06→23:35)
[2019-04-01] MEDS: ONDANSETRON 4 MG INJ IV PRN ×3 (04:36→20:36)
[2019-04-01] MEDS: HYDROCODONE/APAP (5/325) TAB PO PRN ×4 (04:36→20:37)
[2019-04-01] MEDS: D5W-0.45 NACL + KCL 20 MEQ 1,000 ML IV SCH ×3 (04:37→22:02)
[2019-04-01 07:59] VITALS: BP 125/65; PULSE 78; RESP 16
[2019-04-01] MEDS: PANTOPRAZOLE (EC) 40 MG TAB PO SCH ×2 (09:20→20:37)
[2019-04-01] MEDS: CREON (24K-76K-120K) 1 CAP PO SCH ×3 (09:20→20:37)
[2019-04-01] MEDS: CEFTRIAXONE 1 GM/50 ML (PMX) 50 ML IVPB SCH (09:21)
[2019-04-01] MEDS: LORAZEPAM 1 MG TAB PO PRN ×2 (13:25→23:35)
[2019-04-01 15:08] VITALS: BP 144/67; PULSE 76; RESP 20
[2019-04-01 19:25] VITALS: BP 143/63; PULSE 61; RESP 20
[2019-04-02] MEDS: HYDROCODONE/APAP (5/325) TAB PO PRN ×5 (01:41→20:39)
[2019-04-02 02:00] VITALS: BP 145/67; PULSE 76; RESP 20
[2019-04-02] MEDS: ONDANSETRON 4 MG INJ IV PRN ×2 (04:14→10:26)
[2019-04-02] MEDS: HYDROmorphONE 1 MG/ML SYG IV PRN ×5 (04:14→23:04)
[2019-04-02] MEDS: metroNIDAZOLE 500 MG TAB PO SCH ×3 (05:48→18:21)
[2019-04-02] MEDS: VANCOMYCIN HCL 250 MG/5ML POSYG PO SCH ×3 (05:49→18:21)
[2019-04-02 07:20] VITALS: BP 148/85; PULSE 80; RESP 18
[2019-04-02] MEDS: CREON (24K-76K-120K) 1 CAP PO SCH ×3 (08:18→20:38)
[2019-04-02] MEDS: PANTOPRAZOLE (EC) 40 MG TAB PO SCH ×2 (08:19→20:38)
[2019-04-02] MEDS: CEFTRIAXONE 1 GM/50 ML (PMX) 50 ML IVPB SCH (10:20)
[2019-04-02] MEDS: D5W-0.45 NACL + KCL 20 MEQ 1,000 ML IV SCH (12:47)
[2019-04-02 14:46] VITALS: BP 142/74; PULSE 78; RESP 18
[2019-04-02] MEDS: LORAZEPAM 1 MG TAB PO PRN (16:48)
[2019-04-02 19:05] VITALS: BP 138/81; PULSE 78; RESP 20
[2019-04-03] MEDS: ONDANSETRON 4 MG INJ IV PRN ×3 (00:01→21:27)
[2019-04-03] MEDS: metroNIDAZOLE 500 MG TAB PO SCH ×5 (00:02→23:57)
[2019-04-03] MEDS: VANCOMYCIN HCL 250 MG/5ML POSYG PO SCH ×5 (00:02→23:57)
[2019-04-03 02:10] VITALS: BP 157/87; PULSE 87; RESP 20
[2019-04-03] MEDS: HYDROCODONE/APAP (5/325) TAB PO PRN ×5 (02:25→23:00)
[2019-04-03 02:30] VITALS: BP 133/68; PULSE 80
[2019-04-03] MEDS: HYDROmorphONE 1 MG/ML SYG IV PRN ×4 (04:36→21:27)
[2019-04-03] MEDS: LORAZEPAM 1 MG TAB PO PRN ×3 (05:20→23:57)
[2019-04-03] MEDS: D5W-0.45 NACL + KCL 20 MEQ 1,000 ML IV SCH ×2 (05:28→19:23)
[2019-04-03 08:08] VITALS: BP 104/76; PULSE 78; RESP 18
[2019-04-03] MEDS: PANTOPRAZOLE (EC) 40 MG TAB PO SCH ×2 (08:39→21:26)
[2019-04-03] MEDS: CREON (24K-76K-120K) 1 CAP PO SCH ×3 (08:41→21:26)
[2019-04-03] MEDS: CEFTRIAXONE 1 GM/50 ML (PMX) 50 ML IVPB SCH (10:50)
[2019-04-03 14:49] VITALS: BP 127/77; PULSE 67; RESP 15
[2019-04-03 19:35] VITALS: BP 103/79; PULSE 75; RESP 20
[2019-04-04 02:10] VITALS: BP 131/82; PULSE 75; RESP 20
[2019-04-04] MEDS: HYDROmorphONE 1 MG/ML SYG IV PRN ×3 (02:44→11:36)
[2019-04-04] MEDS: HYDROCODONE/APAP (5/325) TAB PO PRN ×3 (04:01→12:46)
[2019-04-04] MEDS: ONDANSETRON 4 MG INJ IV PRN ×2 (04:01→12:46)
[2019-04-04] MEDS: metroNIDAZOLE 500 MG TAB PO SCH ×2 (06:45→11:36)
[2019-04-04] MEDS: VANCOMYCIN HCL 250 MG/5ML POSYG PO SCH ×2 (06:45→11:36)
[2019-04-04 07:59] VITALS: BP 131/91; PULSE 78; RESP 18
[2019-04-04] MEDS: PANTOPRAZOLE (EC) 40 MG TAB PO SCH (08:28)
[2019-04-04] MEDS: CREON (24K-76K-120K) 1 CAP PO SCH ×2 (08:28→12:46)
[2019-04-04] MEDS: D5W-0.45 NACL + KCL 20 MEQ 1,000 ML IV SCH (08:36)
[2019-04-04] MEDS: CEFTRIAXONE 1 GM/50 ML (PMX) 50 ML IVPB SCH (08:36)
== END 2019-04-04 13:35 | disposition home or self-care (01) | DRG 439 ==
LOC: E/R 11:24 → MS1 14:27
PROVIDERS: ADMIT Internal Medicine; ATTEND Internal Medicine
DX: K86.1 Other chronic pancreatitis (principal); A04.72 Enterocolitis due to Clostridium difficile, not specified as recurrent; B37.89 Other sites of candidiasis; N39.0 Urinary tract infection, site not specified; K21.9 Gastro-esophageal reflux disease without esophagitis; F41.9 Anxiety disorder, unspecified; F12.20 Cannabis dependence, uncomplicated
CPT/HCPCS: 36415; 74176; 74181; 80048; 80053; 80076; 81001; 83690; 84484; 85025; 87045; 87075; 87086; 93005; 96374; 96375; J0696; J1170; J2060; J2405; J2765; J3480; J7030